=== PATIENT | male | born 1940 | race Caucasian/White ===

== ENCOUNTER 2016-05-30 18:00 | Observation (INO) | payer MEDICARE, OTHER ==
[2016-05-30] VITALS (12 sets, daily range): BP systolic 130–162; BP diastolic 78–107
[~2016-05-30] VITALS: Ht 182.9 cm; Wt 55.5 kg
[~2016-05-30 18:00] MED LIST: AMOX-358 PO; ASP325T; ASP81TEC PO; ASPI-999 PO; CLOP75TA; CLPD75T; EZET10TA5; FAMO20TA5 PO; FERR-57 PO; LEVE500T99 PO; LISI10TA2 PO; LSNP10T PO; MUPI22OI TOP; NAPR-243 PO; PENI500T PO; SIME80TA16 PO; TRM50T PO
--- OUTSIDE RECORDS SUMMARY | 2016-05-30 18:06 | XMS REPORT | Continuity of Care Document ---
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 Phone JAVIER GONZALEZ MD PCP Insurance Providers Payer Name Policy Number Subscriber Name Relationship [employer] [id number] Juan Alcaraz 18 Self / Same As Patient Advance Directives Directive Response Recorded Date/Time Advance Directives No 08/04/15 8:35pm Health Care Power of Energy Audit Advisor No 08/04/15 8:35pm Organ Donor No 08/04/15 8:35pm Resuscitation Status Full Code 08/04/15 8:35pm Chief Complaint and Reason for Visit Chief Complaint Bite-Animal/Human/Insect Reason for Visit Dog bite of right calf Buyxpgwvkf-dcpnjqmrz-pcsxrwb (DPT) vaccination administeredat current visit Need for post exposure prophylaxis for rabies Problems Active Problems Medical Problem Onset Date Status Chest pain Unknown Acute Ptmlvqwxga-qihiklqwq-nlriqaq (DPT) vaccination administeredat current visit Unknown Acute Dog bite of right calf Unknown Acute Neck pain Unknown Acute Need for post exposure prophylaxis for rabies Unknown Acute Tinnitus Unknown Acute Medications Current Home Medications Medication Dose Units Route Directions Days/Qty Instructions Start Date Levetiracetam 500 Mg 500 Mg Oral Daily 11/27/11 Ferrous Sulfate 325 Mg 325 Mg Oral Daily 11/27/11 Lisinopril 10 Mg 5 Mg Oral Daily TAKES 1/2 (10MG) TABLET 06/05/15 Aspirin 81 Mg 81 Mg Oral Daily 90 06/05/15 Simethicone 80 Mg 80 Mg Oral Three Times A Day 30 Days 06/05/15 Famotidine 20 Mg 20 Mg Oral Twice A Day 30 Days 06/05/15 Amoxicillin/Potassium Clav 1 Each 1 Each Oral Twice A Day for Infection 20 08/04/15 Mupirocin 22 Gm 0 Topically Twice A Day 1 08/04/15 Past Home Medications Medication Directions Ordered Status Clopidogrel Bisulfate 75 Mg Tablet, 06/06/06 Discontinued Aspirin 325 Mg Tablet, 06/06/06 Discontinued Ezetimibe 10 Mg Tablet, 06/06/06 Discontinued Aspirin 325 Mg Tab, 07/15/08 Discontinued Clopidogrel Bisulfate 75 Mg Tablet, 07/15/08 Discontinued Lisinopril 10 Mg Tab, 10 Mg Oral Every 12 Hours 11/27/11 Discontinued Aspirin 81 Mg Tabec, 81 Mg Oral Every Other Day 11/28/11 Discontinued Social History Social History Problem Response Recorded Date/Time Alcohol Use Denies Use 08/04/2015 8:35pm Recreational Drug Use No 08/04/2015 8:35pm Recent Foreign Travel No 08/04/2015 8:35pm Recent Infectious Disease Exposure No 08/04/2015 8:35pm Hospitalization with Isolation Denies 08/04/2015 8:35pm Smoking Status Never a Smoker 08/04/2015 8:35pm Do you dip or chew tobacco? No 08/04/2015 8:35pm Query Response Start Date Stop Date Smoking Status Never a Smoker Hospital Discharge Instructions No hospital discharge instructions. Plan of Care Discharge Date 08/04/15 10:05pm Disposition 01 HOME, SELF-CARE Condition at Discharge Stable Instructions/Education Provided DOG BITE Rabies (ED) Diphtheria Tetanus and Pertussis Vaccination (ED) Prescriptions See Medication Section Referrals JAVIER GONZALEZ MD - Primary Care Physician Additional Instructions/Education CLEAN WOUND TWICE A DAY WITH ANTIBACTERIAL SOAP AND WATER, APPLY BACTROBAN ANTIBIOTIC OINTMENT AND FRESH DRESSING TWICE A DAY TYLENOL AND MOTRIN NEEDED FOR PAIN FOLLOW UP WITH YOUR DR ON FRIDAY FOR FURTHER CARE RETURN TO ER IF SYMPTOMS WORSEN RETURN FOR OUTPATIENT RABIES SERIES VACCINATIONS SCHEDULED--SEE ADDITIONAL PAPERS Functional Status No functional status results. Allergies, Adverse Reactions, Alerts Allergen Type Severity Reaction Status Last Updated Codeine Allergy Unknown Active 02/16/09 Immunizations Name Given Type Date of Pneumonia Vaccine 03/31/10 Historical Date of Influenza Vaccine 02/26/15 Historical Tdap 08/04/15 Administered RIG 08/04/15 Administered rabies, intramuscular injection 08/04/15 Administered Vital Signs Acute Vital Signs Vital Response Date/Time Temperature (Fahrenheit) 97.3 degrees F (97.6 - 99.5) 08/04/2015 8:35pm Temperature (Calculated Celsius) 36.87046 degrees C (36.4 - 37.5) 08/04/2015 8:35pm Temperature Source Temporal 08/04/2015 8:35pm Pulse Rate (adult) 73 bpm (60 - 90) 08/04/2015 8:35pm Respiratory Rate 16 bpm (12 - 24) 08/04/2015 8:35pm O2 Sat by Pulse Oximetry 98 % (88 - 100) 08/04/2015 8:35pm Blood Pressure 148/94 mm Hg 08/04/2015 8:35pm Blood Pressure Mean 112 mm Hg 08/04/2015 8:35pm Pain Pain Intensity 5 08/04/2015 8:35pm Height (Feet) 6 feet 08/04/2015 8:35pm Height (Inches) 0.00 inches 08/04/2015 8:35pm Height (Calculated Centimeters) 182.376308 cm 08/04/2015 8:35pm Weight (Pounds) 125 pounds 08/04/2015 8:35pm Weight (Calculated Grams) 04203.346 gm 08/04/2015 8:35pm Weight (Calculated Kilograms) 56.686952 kilograms 08/04/2015 8:35pm Calculated BMI 15.19 08/04/2015 8:35pm Results No known relevant diagnostic tests, laboratory data and/or discharge summary. Procedures No known history of procedures. Encounters Encounter Location Arrival/Admit Date Discharge/Depart Date Attending Provider Departed Emergency Room [facility] 08/04/15 8:05pm 08/03 10:05pm VICTORINA AVERY DO Recent Diagnosis
[2016-05-30] MEDS ORDERED: LEVE500T6 (18:09)
[2016-05-30] MEDS ORDERED: RX-NITROGLYCERIN 0.4 MG TAB BTL 25'S SL ONE (18:15)
[2016-05-30] MEDS ORDERED: ASPIRIN 81 MG CHEW (CHILDREN'S ASA) PO ONE (18:15)
[2016-05-30 18:21] LABS: BASOPHILS % (AUTO) 0 % (0-10); EOSINOPHILS # (AUTO) 0.5 10^3/uL (0.0-0.3); EOSINOPHILS % (AUTO) 7 % (0-10); LYMPHOCYTES % (AUTO) 29 % (12-44); MEAN CORPUSCULAR HEMOGLOBIN 32 PG (25-34); MEAN CORPUSCULAR HGB CONC 34 G/DL (32-36); MEAN CORPUSCULAR VOLUME 94 FL (80-99); MEAN PLATELET VOLUME 9.2 FL (7.4-10.4); MONOCYTES # (AUTO) 0.6 X 10^3 (0.0-1.0); MONOCYTES % (AUTO) 8 % (0-12); NEUTROPHILS # (AUTO) 3.9 X 10^3 (1.8-7.8); NEUTROPHILS % (AUTO) 56 % (42-75); PLATELET COUNT 245 10^3/uL (130-400); RED BLOOD COUNT 3.75 10^6/uL (4.35-5.85); RED CELL DISTRIBUTION WIDTH 13.2 % (10.0-14.5); WHITE BLOOD COUNT 6.9 10^3/uL (4.3-11.0)
[2016-05-30 18:24] LABS: PROTHROMBIN TIME PATIENT 13.3 SEC (12.2-14.7)
[2016-05-30 18:36] LABS: ALANINE AMINOTRANSFERASE 13 U/L (0-55); ANION GAP 11 MMOL/L (5-14); ASPARTATE AMINO TRANSFERASE 16 U/L (5-34); BILIRUBIN,TOTAL 0.3 MG/DL (0.1-1.0); BLOOD UREA NITROGEN 12 MG/DL (7-18); BUN/CREATININE RATIO 12; CALCIUM 9.3 MG/DL (8.5-10.1); CARBON DIOXIDE 23 MMOL/L (21-32); CHLORIDE 106 MMOL/L (98-107); CREATININE SERUM 1.01 MG/DL (0.60-1.30); GFR ESTIMATED > 60; GLUCOSE 94 MG/DL (70-105); POTASSIUM 3.8 MMOL/L (3.6-5.0); SODIUM 140 MMOL/L (135-145); TOTAL PROTEIN 7.1 G/DL (6.4-8.2)
[2016-05-30 18:42] LABS: MYOGLOBIN SERUM 75.5 NG/ML (10.0-92.0)
--- NOTE | 2016-05-30 18:43 | ED Chest Pain ---
General Chief Complaint: Respiratory Problems Stated Complaint: TROUBLE BREATHING Nursing Triage Note: AMB TO ROOM C/O FEELING LIKE HE CAN'T GET ENOUGH AIR IN. Nursing Sepsis Screen: No Definite Risk Source: patient, old records Exam Limitations: no limitations History of Present Illness Time seen by provider: 18:07 Initial Comments This 76-year-old gentleman presents to the emergency room with complaints of dyspnea and "gas" with excessive belching since about noon. He was not clear to nursing staff at triage that he was having chest pressure, but he admits to me that he is having left upper chest pressure or heaviness that started around noon. It feels similar to when he had his heart attack about 10 years ago. He denies any nausea, vomiting, lightheadedness, or cough. Pain does not seem to have any specific alleviating or exacerbating factors. He denies any abdominal pain. Last bowel movement was yesterday and was mildly difficult to produce. Patient had a cardiac catheter in 2007 demonstrating patent stents to the RCA and LAD. He did have 40-50 percent stenosis at that time. A stress test in 2015 was negative and demonstrated a normal ejection fraction. Allergies and Home Medications Allergies Coded Allergies: codeine (Verified Allergy, Unknown, 02/16/09) Home Medications Aspirin 81 Mg Tab.chew #90 81 MG PO DAILY Prescribed by: REBECCA AGARWAL on 06/05/15 1300 Famotidine 20 Mg Tablet 30Days 20 MG PO BID Prescribed by: IRMA BATISTA on 06/05/15 1353 Ferrous Sulfate 325 Mg Tablet 325 MG PO DAILY (Reported) Levetiracetam 500 Mg Tab 500 MG PO DAILY (Reported) Levetiracetam 500 Mg Tablet #30 (Reported) Lisinopril 10 Mg Tablet 5 MG PO DAILY (Reported) TAKES 1/2 (10MG) TABLET Mupirocin 22 Gm Oint...g. #1 0 TOP BID Prescribed by: VICTORINA AVERY on 08/04/152047 Simethicone 80 Mg Tab.chew 30Days 80 MG PO TID Prescribed by: IRMA BATISTA on 06/05/15 1353 Review of Systems Constitutional: no symptoms reported EENTM: No Symptoms Reported Respiratory: See HPI Cardiovascular: See HPI Gastrointestinal: See HPI Genitourinary: No Symptoms Reported Musculoskeletal: no symptoms reported Skin: no symptoms reported Psychiatric/Neurological: No Symptoms Reported Endocrine: No Symptoms Reported Past Hdbaxfw-Yzrgjy-Vtbolq Hx Patient Social History Alcohol Use: Denies Use Recreational Drug Use: No Smoking Status: Never a Smoker Recent Foreign Travel: No Contact w/Someone Who Travel: No Recent Infectious Disease Expo: No Recent Hopitalizations: Yes (2004 STENT PLACEMENT, 2006 CHEST PAIN) Immunizations Up To Date Tetanus Booster (TDap): Unknown Date of Pneumonia Vaccine: Mar 31, 2010 Date of Influenza Vaccine: Feb 26, 2015 Seasonal Allergies Seasonal Allergies: No Surgeries HX Surgeries: Yes (HEART STENTS 2004, EVACUATION BRAIN HEMATOMA 2008) Surgeries: Cardiac, Coronary Stent, Neurological Respiratory Hx Respiratory Disorders: No Cardiovascular Hx Cardiac Disorders: Yes (2 STENTS) Cardiac Disorders: Coronary Artery Disease, Hypertension Neurological Hx Neurological Disorders: Yes (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) Neurological Disorders: Seizure Disorder Reproductive System Hx Reproductive Disorders: No Genitourinary Hx Genitourinary Disorders: No Gastrointestinal Hx Gastrointestinal Disorders: No Musculoskeletal Hx Musculoskeletal Disorders: No Endocrine Hx Endocrine Disorders: No HEENT HX ENT Disorders: Yes Hearing Impairment: Hard of Hearing Cancer Hx Cancer: No Psychosocial Hx Psychiatric Problems: No Integumentary HX Skin/Integumentary Disorder: No Blood Transfusions Hx Blood Disorders: No Family Medical History Family Medial History: Unknown family medical history Physical Exam Vital Signs Vital Sign - Last 12Hours 05/30/16 05/30/16 18:13 18:43 Temp 97.6 Pulse 60 Resp 18 B/P 158/85 Pulse Ox 96 O2 Delivery Room Air Capillary Refill : Less Than 3 Seconds General Appearance: No Apparent Distress WD/WN HEENT: PERRL/EOMI Normal ENT Inspection Neck: Normal Inspection Respiratory: Chest Non Tender Lungs Clear Normal Breath Sounds No Accessory Muscle Use No Respiratory Distress Cardiovascular: Regular Rate, Rhythm No Edema No Murmur Normal Peripheral Pulses Gastrointestinal: Normal Bowel Sounds Non Tender Soft Extremity: Normal Inspection Non Tender No Calf Tenderness No Pedal Edema Other (negative Artemio) Neurologic/Psychiatric: Alert Oriented x3 No Motor/Sensory Deficits 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 Norm as Tested Skin: Normal Color Warm/Dry Progress/Results/Core Measures Results/Orders Lab Results Laboratory Tests Test 05/30/16 18:10 Range/Units Activated Partial Thromboplast Time 27 24-35 SEC Alanine Aminotransferase (ALT/SGPT) 13 0-55 U/L Albumin 4.0 3.2-4.5 G/DL Alkaline Phosphatase 90 40-136 U/L Anion Gap 11 5-14 MMOL/L Aspartate Amino Transf (AST/SGOT) 16 5-34 U/L BUN/Creatinine Ratio 12 Basophils # (Auto) 0.0 0.0-0.1 10^3/uL Basophils (%) (Auto) 0 0-10 % Blood Urea Nitrogen 12 7-18 MG/DL Calcium Level 9.3 8.5-10.1 MG/DL Carbon Dioxide Level 23 21-32 MMOL/L Chloride Level 106 98-107 MMOL/L Creatinine 1.01 0.60-1.30 MG/DL Eosinophils # (Auto) 0.5 H 0.0-0.3 10^3/uL Eosinophils (%) (Auto) 7 0-10 % Estimat Glomerular Filtration Rate > 60 Glucose Level 94 70-105 MG/DL Hematocrit 35 L 40-54 % Hemoglobin 11.9 L 13.3-17.7 G/DL INR Comment 1.0 0.8-1.4 Lymphocytes # (Auto) 2.0 1.0-4.0 X 10^3 Lymphocytes (%) (Auto) 29 12-44 % Magnesium Level 2.0 1.8-2.4 MG/DL Mean Corpuscular Hemoglobin 32 25-34 PG Mean Corpuscular Hemoglobin Concent 34 32-36 G/DL Mean Corpuscular Volume 94 80-99 FL Mean Platelet Volume 9.2 7.4-10.4 FL Monocytes # (Auto) 0.6 0.0-1.0 X 10^3 Monocytes (%) (Auto) 8 0-12 % Myoglobin 75.5 10.0-92.0 NG/ML Neutrophils # (Auto) 3.9 1.8-7.8 X 10^3 Neutrophils (%) (Auto) 56 42-75 % Platelet Count 245 130-400 10^3/uL Potassium Level 3.8 3.6-5.0 MMOL/L Prothrombin Time 13.3 12.2-14.7 SEC Red Blood Count 3.75 L 4.35-5.85 10^6/uL Red Cell Distribution Width 13.2 10.0-14.5 % Sodium Level 140 135-145 MMOL/L Total Bilirubin 0.3 0.1-1.0 MG/DL Total Protein 7.1 6.4-8.2 G/DL Troponin I < 0.30 <0.30 NG/ML White Blood Count 6.9 4.3-11.0 10^3/uL My Orders Orders-ROD CAMPO MD Cbc With Automated Diff (05/30/16 18:15) Magnesium (05/30/16 18:15) Chest 1 View, Ap/Pa Only (05/30/16 18:15) Ekg Tracing (05/30/16 18:15) Cardiac Profile 1 (05/30/16 18:15) Comprehensive Metabolic Panel (05/30/16 18:15) Myoglobin Serum (05/30/16 18:15) Protime With Inr (05/30/16 18:15) Partial Thromboplastin Time (05/30/16 18:15) O2 (05/30/16 18:15) Monitor-Rhythm Ecg Trace Only (05/30/16 18:15) Lipid Panel (05/31/16 06:00) Aspirin Chewable Tablet (Baby Aspirin Ch (05/30/16 18:15) Rx-Nitroglycerin Sl Tabs (Rx-Nitrostat S (05/30/16 18:15) Saline Lock/Iv-Start (05/30/16 18:15) Medications Given in ED Current Medications Medications Dose Ordered Sig/Andrei Route Start Time Stop Time Status Last Admin Dose Admin Aspirin 324 mg ONCE ONCE PO 05/30/16 18:15 05/30/16 18:17 DC 05/30/16 18:24 324 MG Nitroglycerin 0.4 mg UD ONCE SL 05/30/16 18:15 05/30/16 18:17 DC 05/30/16 18:25 0.4 MG Vital Signs/I&O Vital Sign - Last 12Hours 05/30/16 05/30/16 18:13 18:43 Temp 97.6 Pulse 60 59 Resp 18 18 B/P 158/85 130/86 Pulse Ox 96 O2 Delivery Room Air Blood Pressure Mean: 109 Progress Note : Progress Note Patient received aspirin and a dose of nitroglycerin shortly after assessment. Chest pressure was completely relieved after one nitroglycerin and patient was feeling relatively well prior to admission. Workup was unremarkable. ECG Initial ECG Impression Date: May 30, 2016 Initial ECG Impression Time: 18:05 Initial ECG Rate: 62 Initial ECG Rhythm: Normal Sinus Initial ECG Intervals: Normal Initial ECG Impression: Normal Comment normal sinus rhythm with no ST elevation or depression. No abnormal intervals or axis deviation. Diagnostic Imaging Diagonstic Imaging: Xray Plain Films/CT/US/NM/MRI: chest Comments NAME: JUAN ALCARAZ REC#: [id number] PT STATUS: REG ER : 1940 PHYSICIAN: ROD CAMPO MD ADMIT DATE: 05/30/16/ER Draft Date of Exam:05/30/16 CHEST 1 VIEW, AP/PA ONLY Portal AP chest at 6:34 p.m. INDICATION: Difficulty breathing. FINDINGS: Heart size is within normal limits and stable when compared to 10/08/2015. The lungs are generally clear. There is no sign of failure, pneumonia or pleural effusion to suggest an acute abnormality. The mediastinum is not widened. The osseous structures are intact. IMPRESSION: There is no evidence for an acute cardiopulmonary abnormality. Dictated on workstation # [id number] Dict: 05/30/16 1850 Trans: 05/30/16 1912 KB [id number] Interpreted by: CLIFFORD SUTHERLAND MD Departure Communication Time/Spoke to Admitting Phy: 19:[address] Moreno was contacted and agrees with admission for cardiac rule out. Time/Spoke to Consulting Physi: 19:45 Communication/Consulting Dr. Ray was contacted and case was reviewed. He agrees with admission for cardiac rule out based on patient's prior history. He requests calls to him until 07:00, then calls to Dr. Agarwal. He requests NPO status after midnight in preparation for further testing. Impression Impression: Primary Impression: Chest pain Qualified Code: R07.9 - Chest pain, unspecified Additional Impression: Coronary artery disease Qualified Code: I25.10 - Atherosclerotic heart disease of [place] coronary artery without angina pectoris Disposition: ADMITTED INPATIENT Condition: Improved Decision to Admit Reason: Admit from ER (General) Decision to Admit/Date: May 30, 2016 Time/Decision to Admit Time: 18:15 Departure-Patient Inst. Referrals: JAVIER GONZALEZ MD (PCP/Family) Primary Care Physician ROD CAMPO MD May 30, 2016 18:43
--- NOTE | 2016-05-30 19:12 | Diagnostic Imaging Report ---
Portal AP chest at 6:34 p.m. INDICATION: Difficulty breathing. FINDINGS: Heart size is within normal limits and stable when compared to 10/08/2015. The lungs are generally clear. There is no sign of failure, pneumonia or pleural effusion to suggest an acute abnormality. The mediastinum is not widened. The osseous structures are intact. IMPRESSION: There is no evidence for an acute cardiopulmonary abnormality. Dictated by: Dictated on workstation # [id number]
[2016-05-30] MEDS ORDERED: morphine INJ 4 MG/ML 1 ML (VIAL/SYRINGE) IV PRN (21:15)
[2016-05-30] MEDS ORDERED: NITROGLYCERIN SUBLINGUAL 0.4 MG TAB (NITROSTAT) SL PRN (21:15)
[2016-05-30] MEDS ORDERED: ONDANSETRON 4 MG/2 ML (SDV) Z0FRAN IV PRN (21:15)
[2016-05-30] MEDS ORDERED: CATHETER FLUSH 10 ML SYR IV PRN (21:30)
[2016-05-30] MEDS: CATHETER FLUSH 10 ML SYR IV SCH (22:43)
[2016-05-31] VITALS (8 sets, daily range): BP systolic 121–147; BP diastolic 72–81
[2016-05-31 04:36] LABS: CHOLESTEROL 169 MG/DL (< 200); DIRECT LDL 110 MG/DL (1-129); TRIGLYCERIDES 106 MG/DL (<150); VLDL CHOLESTEROL 21 MG/DL (5-40)
[2016-05-31] MEDS: CATHETER FLUSH 10 ML SYR IV SCH (05:37)
[2016-05-31] MEDS ORDERED: FAMO20TA3 PO (08:31)
[2016-05-31] MEDS ORDERED: ASPI-999 PO (08:35)
[2016-05-31] MEDS ORDERED: lisINopril 5 MG (PRINIVIL) TABLET PO SCH (09:00)
[2016-05-31] MEDS ORDERED: FAMOTIDINE 20 MG (PEPCID) TABLET PO SCH (09:00)
[2016-05-31] MEDS ORDERED: ASPIRIN E.C. 325 MG (ECOTRIN) TABLET PO SCH (09:00)
[2016-05-31] MEDS ORDERED: LEVETIRACETAM 500 MG (KEPPRA) TAB PO SCH (09:00)
--- NOTE | 2016-05-31 09:00 | Consultation-Cardiology ---
HPI-Cardiology Cardiology Consultation: Date of Consultation 05/31/16 Date of Admission 05-30-16 Attending Physician Xena Moreno DO Admitting Physician Jose Antonio Morrison MD Consulting Physician Frederick Agarwal MD HPI: Chief Complaint: Dyspepsia Mr. Alcaraz is a 76 year old male admitted to ICU2 from the ED. He reports chronic dyspepsia for which he takes Zantac BID at home. He states he has been having increasing indigestion and belching along with abdominal bloating which became worse last night. He states he was belching so frequently last night he was having a hard time catching his breath. He states he has been taking antacids at home, but feels they have only provided minimal relief. He states he has a chronic minimal appetite which is nothing new. He states he at times he feels food gets stuck in his esophagus. No c/o CP, palpitations, dyspnea, syncope or near syncope. No c/o LE edema. Review of Systems-Cardiology Review of Systems Constitutional: As described under HPI Eyes: No blurred vision, No drainage, No pain, No vision change Ears/Nose/Throat: No ear discharge, No ear pain, No nasal drainage, No ulcerations Respiratory: As described under HPI Cardiovascular: As described under HPI Gastrointestinal: As described under HPI abdomen distendedNo constipation, No diarrhea, No nausea, No vomiting, No stool coloration changes Genitourinary: No dysuria, No discharge, No frequency, No hematuria, No urgency Skin: No rash, No skin related problems, No ulcerations Psychiatric/Neurological: No anxiety, No depression, No focal weakness, No seizure, No syncope Hematologic: No bleeding abnormalities BZH-Ldkicf-Luziju Hx Patient Social History Alcohol Use: Denies Use Recreational Drug Use: No Smoking Status: Never a Smoker Recent Foreign Travel: No Recent Infectious Disease Expo: No Hospitalization with Isolation: Denies Physical Abuse Screen: No Sexual Abuse: No Immunizations Up To Date Tetanus Booster (TDap): Unknown Date of Pneumonia Vaccine: Dec 30, 2015 Date of Influenza Vaccine: Dec 30, 2015 Past Medical History PMH As described under Assessment. Family Medical History Family Medical History: Denies fam h/o early CAD Family History: Relation not specified for: Unknown family medical history Allergies and Home Medications Allergies Coded Allergies: codeine (Verified Allergy, Unknown, 02/16/09) Home Medications Aspirin 81 Mg Tab.chew 81 MG PO DAILY (Reported) Famotidine 20 Mg Tablet 20 MG PO BID (Reported) Ferrous Sulfate 325 Mg Tablet 325 MG PO DAILY (Reported) Levetiracetam 500 Mg Tab 500 MG PO DAILY (Reported) Lisinopril 10 Mg Tablet 5 MG PO DAILY (Reported) TAKES 1/2 (10MG) TABLET Physical Exam-Cardiology Physical Exam Vital Signs/I&O Vital Sign - Last 12Hours 05/30/16 05/30/16 05/30/16 05/30/16 21:07 21:11 21:15 21:15 Temp 96.6 Pulse 53 60 59 Resp 16 B/P 159/90 154/92 154/92 Pulse Ox 99 98 98 O2 Delivery Room Air Room Air Room Air 05/30/16 05/30/16 05/30/16 05/30/16 21:30 21:30 21:45 21:45 Pulse 68 68 62 62 B/P 151/107 162/84 162/84 Pulse Ox 95 95 96 96 O2 Delivery Room Air Room Air Room Air Room Air 05/30/16 05/30/16 05/30/16 05/30/16 22:00 22:00 22:15 22:15 Pulse 59 59 79 79 B/P 155/78 155/78 149/78 149/78 Pulse Ox 98 98 97 97 O2 Delivery Room Air Room Air Room Air Room Air 05/30/16 05/30/16 05/30/16 05/30/16 22:30 22:30 22:45 22:45 Pulse 67 67 56 56 B/P 130/94 130/94 140/78 140/78 Pulse Ox 96 96 96 96 O2 Delivery Room Air Room Air Room Air Room Air 05/30/16 05/30/16 05/30/16 05/30/16 23:00 23:00 23:15 23:30 Pulse 65 65 52 53 B/P 147/82 147/82 153/78 142/78 Pulse Ox 96 96 95 97 O2 Delivery Room Air Room Air Room Air Room Air 05/30/16 05/31/16 05/31/16 05/31/16 23:30 00:00 00:00 01:00 Temp 96.5 Pulse 54 53 59 Resp 16 B/P 142/78 142/78 Pulse Ox 97 97 96 O2 Delivery Room Air Room Air 3/305/31/16 05/31/16 05/31/16 01:00 02:00 03:00 04:00 Temp 98.2 Pulse 60 60 58 59 B/P 121/78 147/80 143/81 138/72 Pulse Ox 95 95 95 97 O2 Delivery Room Air Room Air Room Air Room Air 05/31/16 05/31/16 05/31/16 04:00 07:00 08:00 Temp 96.7 Pulse 66 71 Resp 20 B/P 132/78 Pulse Ox 96 95 O2 Delivery Room Air Intake and Output 05/31/16 00:00 Intake Total 220 ml Output Total 600 ml Balance -380 ml Capillary Refill : Less Than 3 Seconds Constitutional: appears stated ageNo apparent distress, well-developed well- nourished HEENT: PERRLNo discharge, hearing is well preservedNo oral hygience is good ( poor dention with multiple missing and broken teeth), No ulceration, No xanthelasmas are seen Neck: No carotid bruit, carotid pulses are 2 + bilaterally Respiratory: No accessory muscle use, No respiratory distress, chest expansion is symmetric chest is bilaterally symmetric lungs clear to percussion lungs clear to auscultation Cardiovascular: regular rate-rhythmNo JVD, S1 and S2 Gastrointestinal: soft roundNo distended, No tenderness, No spleenomegaly Rectal: deferred Extremities: No clubbing, No cyanosis, No significant edema Neurologic/Psychiatric: alert oriented x 3 power is 5/5 both on sides Skin: No rash, No ulcerations Data Review Labs Laboratory Tests 05/30/16 18:10: Activated Partial Thromboplast Time 27, Alanine Aminotransferase (ALT/SGPT) 13, Albumin 4.0, Alkaline Phosphatase 90, Anion Gap 11, Aspartate Amino Transf (AST/ SGOT) 16, BUN/Creatinine Ratio 12, Basophils # (Auto) 0.0, Basophils (%) (Auto) 0, Blood Urea Nitrogen 12, Calcium Level 9.3, Carbon Dioxide Level 23, Chloride Level 106, Creatinine 1.01, Eosinophils # (Auto) 0.5H, Eosinophils (%) (Auto) 7 , Estimat Glomerular Filtration Rate > 60, Glucose Level 94, Hematocrit 35L, Hemoglobin 11.9L, INR Comment 1.0, Lymphocytes # (Auto) 2.0, Lymphocytes (%) ( Auto) 29, Magnesium Level 2.0, Mean Corpuscular Hemoglobin 32, Mean Corpuscular Hemoglobin Concent 34, Mean Corpuscular Volume 94, Mean Platelet Volume 9.2, Monocytes # (Auto) 0.6, Monocytes (%) (Auto) 8, Myoglobin 75.5, Neutrophils # ( Auto) 3.9, Neutrophils (%) (Auto) 56, Platelet Count 245, Potassium Level 3.8, Prothrombin Time 13.3, Red Blood Count 3.75L, Red Cell Distribution Width 13.2, Sodium Level 140, Total Bilirubin 0.3, Total Protein 7.1, Troponin I < 0.30, White Blood Count 6.9 05/31/16 01:35: Troponin I < 0.30 05/31/16 03:35: Cholesterol Level 169, HDL Cholesterol 39L, LDL Cholesterol Direct 110, Triglycerides Level 106, VLDL Cholesterol 21 Laboratory Tests 05/30/16 18:10 Radiology NAME: JUAN ALCARAZ [facility] REC#: [id number] PT STATUS: REG ER : 1940 PHYSICIAN: ROD CAMPO MD ADMIT DATE: 05/30/16/ER Signed Date of Exam: 05/30/16 CHEST 1 VIEW, AP/PA ONLY Portal AP chest at 6:34 p.m. INDICATION: Difficulty breathing. FINDINGS: Heart size is within normal limits and stable when compared to 10/08/2015. The lungs are generally clear. There is no sign of failure, pneumonia or pleural effusion to suggest an acute abnormality. The mediastinum is not widened. The osseous structures are intact. IMPRESSION: There is no evidence for an acute cardiopulmonary abnormality. Dictated by: Dictated on workstation # [id number] Dict: 05/30/16 1850 Trans: 05/30/16 1924 KB [id number] Interpreted by: CLIFFORD SUTHERLAND MD Electronically signed by:CLIFFORD SUTHERLAND MD 05/30/16 1922 ECG Impression ECG Initial ECG Rhythm: Normal Sinus A/P-Cardiology Assessment/Admission Diagnosis Epigastric discomfort with associated dyspepsia Chronic dyspepsia with recent worsening of symptoms Coronary artery disease with a history of drug-eluting stenting of the mid right coronary and the mid left anterior descending in 2004. Last cardiac catheterization was in November 2007 and it showed widely patent stents in these arteries. 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 Intolerance to combination of aspirin and Plavix on account of intracranial bleed when on these medications. He has been able to tolerate a low dose of aspirin without complications. Intolerance to statins which result in liver enzyme elevation. Mild chronic alkaline phosphatase elevation of undetermined etiology, being followed by Dr. Morrison. Mild chronic anemia, being followed by Dr. Morrison. Mild bilateral carotid arterial disease without evidence of hemodynamically significant stenosis per carotid ultrasound on 01/27/2015. Normal global systolic function with an ejection fraction of approximately 60%, mild mitral and tricuspid regurgitation, pulmonary artery systolic pressure is estimated to be approximately 25 mmHg per echocardiogram from 06/05/15. Discussion and Recomendations Dyspepsia with epigastric discomfort. No evidence of ACS based on serial troponin and EKG. Symptoms likely non-cardiac. He has chronic dyspepsia for which he takes Pepcid. We have discussed risk factor modification. We have advised further work up with medical services for other possible causes. He verbalizes understanding. We will change Pepcid to PPI. We will give Mylanta. Further recommendations will be based on his hospital course. We would like to thank Dr. Moreno for this consult. This consult is being scribed by Sav Varghese APRN on behalf of Dr. Agarwal after discussion regarding plan of care. Clinical Quality Measures DVT/VTE Risk/Contraindication: Risk Factor Score Per Nursin RFS Level Per Nursing on Admit: 2=Moderate YOUNG VARGHESE May 31, 2016 09:00
[2016-05-31] MEDS ORDERED: ANTACID SUSP 30 ML UDC (MYLANTA) PO ONE (09:15)
--- NOTE | 2016-05-31 10:24 | Short Stay Summary-Hospitalist ---
HPI History of Present Illness: HPI/Chief Complaint CC: Chest pain and SOB HPI: This is a 76[address]WM pt of Dr. Gonzalez'juvenal that presented with chest pain and SOB. Dr. Agarwal is pt's Manager Disaster Recovery. Pt has stabilized, and will likely DC with an appointment for out-patient scope to explore SOB and indigestion complications. associate programmer analyst: RN states that pt had a stress test recently, and pt is stable for DC with an out-patient scope due to indigestion. Patient Interview: Pt states that PCP is Dr. Gonzalez. Pt states that there are plans for a scope. Pt does not wear O2 at home. Pt does not smoke or drink excessive ETOH. Pt lives with at home, and is normally active. Pt worked at [email or web address] for the past 11 years. Physical exam stable. Pt states that he is SOB. Scribed by Ten Palmer under the direct supervision of Dr. White. Source: patient Exam Limitations: no limitations Date Seen 05/31/16 Attending Physician Xena White DO PCP Javier Gonzalez MD Referring Physician Date of Admission May 30, 2016 at 20:19 Home Medications & Allergies Home Medications Reviewed patient Home Medication Reconciliation Form Allergies Coded Allergies: codeine (Verified Allergy, Unknown, 02/16/09) Past Lxkvbsd-Vlcnew-Joitsv Hx Patient Social History Marrital Status: Employed/Student: retired ([employer] for 11 years most recent job) Alcohol Use: Denies Use Recreational Drug Use: No Smoking Status: Never a Smoker Physical Abuse Screen: No Sexual Abuse: No Recent Foreign Travel: No Contact w/other who traveled: No Recent Hopitalizations: Yes (2004 STENT PLACEMENT, 2006 CHEST PAIN) Recent Infectious Disease Expo: No Immunizations Up To Date Tetanus Booster (TDap): Unknown Date of Pneumonia Vaccine: Dec 30, 2015 Date of Influenza Vaccine: Dec 30, 2015 Seasonal Allergies Seasonal Allergies: No Surgeries HX Surgeries: Yes (HEART STENTS 2004, EVACUATION BRAIN HEMATOMA 2008) Surgeries: Cardiac, Coronary Stent, Neurological Respiratory Hx Respiratory Disorders: No Cardiovascular Hx Cardiovascular Disorders: Yes (2 STENTS) Cardiac Disorders: Coronary Artery Disease, Hypertension Neurological Hx Neurological Disorders: Yes (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) Neurological Disorders: Seizure Disorder Reproductive System Hx Reproductive Disorders: No Genitourinary Hx Genitourinary Disorders: No Gastrointestinal Hx Gastrointestinal Disorders: No Musculoskeletal Hx Musculoskeletal Disorders: No Endocrine Hx Endocrine Disorders: No HEENT HX ENT Disorders: Yes Loss of Vision: Denies Hearing Impairment: Hard of Hearing Cancer Hx Cancer: No Psychosocial Hx Psychiatric Problems: No Integumentary HX Skin/Integumentary Disorder: No Blood Transfusions Hx Blood Disorders: No Family Medical History Family Hx: Unknown family medical history Review of Systems Constitutional: see HPI EENTM: no symptoms reported Respiratory: short of breath Cardiovascular: chest pain Gastrointestinal: heartburn Genitourinary: no symptoms reported Musculoskeletal: no symptoms reported Skin: no symptoms reported Psychiatric/Neurological: No Symptoms Reported All Other Systems Reviewed Negative Unless Noted: Yes Physical Exam Physical Exam Vital Signs Vital Sign - Last 12Hours 05/30/16 05/30/16 18:13 18:43 Temp 97.6 Pulse 60 Resp 18 B/P 158/85 Pulse Ox 96 O2 Delivery Room Air Capillary Refill : Less Than 3 Seconds General Appearance: No Apparent Distress WD/WN Chronically ill Thin Eyes: Bilateral Eye Normal Inspection, Bilateral Eye PERRL HEENT: PERRL/EOMI Normal ENT Inspection Pharynx Normal Neck: Full Range of Motion Normal Inspection Non Tender Supple Carotid Bruit Respiratory: Chest Non Tender Lungs Clear Normal Breath Sounds No Accessory Muscle Use No Respiratory Distress Cardiovascular: Regular Rate, Rhythm No Edema No Gallop No JVD No Murmur Normal Peripheral Pulses Gastrointestinal: Normal Bowel Sounds No Organomegaly No Pulsatile Mass Non Tender Soft Back: Normal Inspection No CVA Tenderness No Vertebral Tenderness Extremity: Normal Capillary Refill Normal Inspection Normal Range of Motion Non Tender No Calf Tenderness No Pedal Edema Neurologic/Psychiatric: Alert Oriented x3 No Motor/Sensory Deficits Normal Mood/Affect Skin: Normal Color Warm/Dry Lymphatic: No Adenopathy Results Results/Procedures Lab Laboratory Tests 05/30/16 18:10 Short Stay Diagnosis Discharge Diagnosis-Short Stay Admission Diagnosis Assessment: Chest pain SOB Indigestion Final Discharge Diagnosis Assessment: Chest pain with history of 2 stents placed CAD sees Dr. Jewel PRATHER Conclusion Plan Plan: DC with out-patient scope with Dr. Fisher and I spoke to him and he accepts consult Copy Copies To 1: JAVIER GONZALEZ MD Clinical Quality Measures DVT/VTE Risk/Contraindication: Risk Factor Score Per Nursin RFS Level Per Nursing on Admit: 2=Moderate XENA WHITE DO May 31, 2016 10:24
--- NOTE | 2016-05-31 10:30 | Discharge Instructions ---
Discharge Instructions Discharge Medications New, Converted or Re-Newed RX: Other (no new meds) Continued Medications: Aspirin (Aspirin) 81 Mg Tab.chew 81 MG PO DAILY TAB Famotidine (Acid Nurse Outreach Case Manager (FAMOTIDINE)) 20 Mg Tablet 20 MG PO BID TAB Ferrous Sulfate (Ferrous Sulfate) 325 Mg Tablet 325 MG PO DAILY TAB Levetiracetam (Keppra Tab) 500 Mg Tab 500 MG PO DAILY TAB Lisinopril (Lisinopril) 10 Mg Tablet 5 MG PO DAILY TAKES 1/2 (10MG) TABLET TAB Patient Instructions Goal/Follow Up Appt: Dr. Agarwal as scheduled Dr. Fisher for EGD to pursue gastritis versus reflux Activity & Diet Discharge Diet: Cardiac Diet Activity as Tolerated: Yes JORDAN WHITE DO May 31, 2016 10:30
[2016-05-31] MEDS ORDERED: ANTACID SUSP 30 ML UDC (MYLANTA) PO NR (12:51)
== END 2016-05-31 13:00 | disposition home or self-care (01) ==
LOC: EDUNIT# 18:00 → ER 18:02 → UNDOADMOB 20:19 → ICU 20:19
PROVIDERS: ADMIT Internal Medicine; ATTEND Internal Medicine
DX: R07.9 Chest pain, unspecified (principal); I25.10 Atherosclerotic heart disease of native coronary artery without angina pectoris; K21.9 Gastro-esophageal reflux disease without esophagitis; Z95.5 Presence of coronary angioplasty implant and graft
CPT/HCPCS: 36415; 71010; 80053; 80061; 83735; 83874; 84484; 85025; 85610; 85730; 93005; 93041; 99211; G0378

== ENCOUNTER → 2016-06-03 | Day surgery (SDC) | payer MEDICARE, OTHER ==
[~2016-06-03] VITALS: Ht 182.9 cm; Wt 55.5 kg
[~2016-06-03] MED LIST changes: +FAMO20TA3 PO; +FLUMAZENIL (ROMAZICON) 0.1 MG/ML 5 ML VIAL INJ PRN; +HURRICAINE EXT TUBE (BENZOCAINE) ONE; +HURRICAINE EXT TUBE (BENZOCAINE) XX PRN; +LEVE500T6; +MIDAZOLAM 2 MG/2 ML (VERSED) VIAL ONE; +NALOXONE 0.4 MG/ML 1 ML (NARCAN) VIAL IVP PRN; +NS IV 500 ML 500 ML IV PRN; +NS IV 500 ML 500 ML ONE; +fentaNYL INJECTION 100 MCG/2 ML AMP ONE
--- OUTSIDE RECORDS SUMMARY | 2016-06-03 10:14 | XMS REPORT | Continuity of Care Document ---
Author Author [facility] Organization [facility] Address Unknown Phone Unavailable Care Team Providers Care Pharmacy Customer Care Specialist Name Role Phone JAVIER GONZALEZ MD PCP Insurance Providers Payer Name Policy Number Subscriber Name Relationship [employer] [id number] Juan Alcaraz 20 Self / Same As Patient Advance Directives Directive Response Recorded Date/Time Advance Directives No 08/04/15 8:35pm Health Care Power of Oil Burner Installer No 08/04/15 8:35pm Organ Donor No 08/04/15 8:35pm Resuscitation Status Full Code 08/04/15 8:35pm Chief Complaint and Reason for Visit Chief Complaint Bite-Animal/Human/Insect Reason for Visit Dog bite of right calf Ciapiizvek-pmctlpnxo-aezsyio (DPT) vaccination administeredat current visit Need for post exposure prophylaxis for rabies Problems Active Problems Medical Problem Onset Date Status Chest pain Unknown Acute Uumybcgwjo-kvrsztwra-uovkbpa (DPT) vaccination administeredat current visit Unknown Acute [...] - 99.5) 08/04/2015 8:35pm Temperature (Calculated Celsius) 36.22628 degrees C (36.4 - 37.5) 08/04/2015 8:35pm [...] 0.00 inches 08/04/2015 8:35pm Height (Calculated Centimeters) 182.991762 cm 08/04/2015 8:35pm Weight (Pounds) 125 pounds 08/04/2015 8:35pm Weight (Calculated Grams) 56044.346 gm 08/04/2015 8:35pm Weight (Calculated Kilograms) 56.435983 kilograms 08/04/2015 8:35pm Calculated BMI 15.19 08/04/2015 8:35pm Results No known relevant diagnostic tests, laboratory data and/or discharge summary. Procedures No known history of procedures. Encounters Encounter Location Arrival/Admit Date Discharge/Depart Date Attending Provider Departed Emergency Room [facility] 08/04/15 8:05pm 08/03 10:05pm VICTORINA AVERY DO Recent Diagnosis
[2016-06-03 10:15] VITALS: BP 135/82
--- OUTSIDE RECORDS SUMMARY | 2016-06-03 10:15 | XMS REPORT | Continuity of Care Document ---
Author Author [facility] Organization [facility] Address Unknown Phone Unavailable Care Team Providers Care Builder Operator Name Role Phone JAVIER GONZALEZ MD PCP Insurance Providers Payer Name Policy Number Subscriber Name Relationship [employer]ps Medicare [id number] Juan Alcaraz 18 Self / Same As Patient Advance Directives Directive Response Recorded Date/Time Advance Directives No 08/04/15 8:35pm Health Care Power of Wool Hat Finisher No 08/04/15 8:35pm Organ Donor No 08/04/15 8:35pm Resuscitation Status Full Code 08/04/15 8:35pm Chief Complaint and Reason for Visit Chief Complaint Bite-Animal/Human/Insect Reason for Visit Dog bite of right calf Vnznqbkvsv-lffsggzxj-xoqvbsb (DPT) vaccination administeredat current visit Need for post exposure prophylaxis for rabies Problems Active Problems Medical Problem Onset Date Status Chest pain Unknown Acute Ajsgzmtgzt-fzhyorblb-pnfpmcs (DPT) vaccination administeredat current visit Unknown Acute [...] - 99.5) 08/04/2015 8:35pm Temperature (Calculated Celsius) 36.08649 degrees C (36.4 - 37.5) 08/04/2015 8:35pm [...] 0.00 inches 08/04/2015 8:35pm Height (Calculated Centimeters) 182.212183 cm 08/04/2015 8:35pm Weight (Pounds) 125 pounds 08/04/2015 8:35pm Weight (Calculated Grams) 52945.346 gm 08/04/2015 8:35pm Weight (Calculated Kilograms) 56.912333 kilograms 08/04/2015 8:35pm Calculated BMI 15.19 08/04/2015 8:35pm Results No known relevant diagnostic tests, laboratory data and/or discharge summary. Procedures No known history of procedures. Encounters Encounter Location Arrival/Admit Date Discharge/Depart Date Attending Provider Departed Emergency Room [facility] 08/04/15 8:05pm 08/03 10:05pm VICTORINA AVERY DO Recent Diagnosis
--- NOTE | 2016-06-03 11:08 | Pre-Op Note & Conscious Sedat ---
Pre-Operative Progress Note H&P Reviewed The H&P was reviewed, patient examined and no changes noted. Date H&P Reviewed: Jun 03, 2016 Time H&P Reviewed: 11:07 Pre-Op Diagnosis: epigastric pain Conscious Sedation Pre-Proced ASA Class: 2 Airway Mallampati Classification: ([place] appropriate class) I. II. III, IV Lungs Heart ASA score ASA 1: a normal healthy patient ASA 2: a patient with a mild systemic disease (mid diabetes, controlled hypertension, obesity ASA 3: a patient with a severe systemic disease that limits activity (angina , COPD, prior Myocardial infarction) ASA 4: a patient with an incapacitating disease that is a constant threat to life (CHF, renal failure) ASA 5: a moribund patient not expected to survive 24 hrs. (ruptured aneurysm) ASA 6: a declared brain patient whose organs are being harvested. For emergent operations, add the letter E after the classification Grade 2 Sedation Plan: Discussed options with patient/fam Note The patient is an appropriate candidate to undergo the planned procedure, sedation, and anesthesia. The patient immediately re-assessed prior to indication. LISETH LESLIE MD Jun 03, 2016 11:08 am
[2016-06-03] MEDS: fentaNYL INJECTION 100 MCG/2 ML AMP IVP PRN ×2 (11:49→11:51)
[2016-06-03] MEDS: MIDAZOLAM 2 MG/2 ML (VERSED) VIAL IVP PRN ×2 (11:50→11:53)
--- NOTE | 2016-06-03 12:08 | Progress Note-Post Operative ---
Post-Operative Progess Note Pre-Operative Diagnosis epigastric pain Post-Operative Diagnosis tortuous esophagus with a distal peptic stricture. Distal gastritis Post-Op Procedure Note Date of Procedure: Jun 03, 2016 Name of Procedure: EGD with antral biopsy Balloon dilatation of esophageal stricture Anesthesia Type sedation Specimen(s) collected antral mucosa LISETH LESLIE MD Jun 03, 2016 12:08 pm
--- NOTE | 2016-06-03 12:09 | Discharge Inst-Simple/Standard ---
Discharge Inst-Standard Discharge Medications New, Converted or Re-Newed RX: Other Patient Instructions/Follow Up Plan of Care/Instructions/FU: follow-up with his primary physician Activity as Tolerated: Yes Discharge Diet: Soft Diet LISETH LESLIE MD Jun 03, 2016 12:09 pm
[2016-06-03 12:40] VITALS: BP 124/76
--- NOTE | 2016-06-03 12:44 | OPERATIVE REPORT ---
PROCEDURE PHYSICIAN: LISETH LESLIE DATE OF PROCEDURE: 06/03/2016 PROCEDURE: 1. Upper GI endoscopy with antral biopsy. 2. Balloon dilatation of esophageal stricture. SURGEON: Dr. Leslie. INDICATION FOR THE PROCEDURE: This gentleman came in for an upper endoscopy to evaluate ongoing epigastric pain. An informed consent was obtained after reviewing the procedure in detail. DESCRIPTION OF PROCEDURE: He was placed in left lateral decubitus position and his vital signs were monitored. Conscious sedation was achieved using Versed and fentanyl. The flexible gastroscope was then introduced into the esophagus, past the stomach, into the proximal duodenum. FINDINGS: ESOPHAGUS: Quite tortuous with a smooth, concentric stricture at the distal end. It was dilated to 20 mm with a balloon. STOMACH: Mild distal gastritis. An antral biopsy was obtained for Helicobacter status. DUODENUM: Normal. He tolerated the procedure well and was taken back to the nursing area in a stable condition. IMPRESSION: 1. Epigastric pain. 2. Distal esophageal stricture encountered. 3. Balloon dilatation completed. Job ID: [id number] Dictated Date: 06/03/2016 12:08:10 Crm System Administrator Date: 06/03/2016 12:42:07 / salvador PULIDO
[2016-06-03 13:10] VITALS: BP 121/79
[2016-06-03 13:22] VITALS: BP 121/79
== END | disposition home or self-care (01) ==
LOC: ENDO 10:11
PROVIDERS: ATTEND Surgery
DX: K22.2 Esophageal obstruction (principal); K29.70 Gastritis, unspecified, without bleeding
CPT/HCPCS: 88305; 88342

== ENCOUNTER → 2017-03-03 | Outpatient (CLI) | payer MEDICARE ==
[~2017-03-03] MED LIST changes: -FLUMAZENIL (ROMAZICON) 0.1 MG/ML 5 ML VIAL INJ PRN; -HURRICAINE EXT TUBE (BENZOCAINE) ONE; -HURRICAINE EXT TUBE (BENZOCAINE) XX PRN; -MIDAZOLAM 2 MG/2 ML (VERSED) VIAL ONE; -NALOXONE 0.4 MG/ML 1 ML (NARCAN) VIAL IVP PRN; -NS IV 500 ML 500 ML IV PRN; -NS IV 500 ML 500 ML ONE; -fentaNYL INJECTION 100 MCG/2 ML AMP ONE
[2017-03-03 10:01] LABS: ANION GAP 6 MMOL/L (5-14); BLOOD UREA NITROGEN 8 MG/DL (7-18); BUN/CREATININE RATIO 9; CALCIUM 9.1 MG/DL (8.5-10.1); CARBON DIOXIDE 31 MMOL/L (21-32); CHLORIDE 107 MMOL/L (98-107); CREATININE SERUM 0.87 MG/DL (0.60-1.30); GFR ESTIMATED > 60; GLUCOSE 100 MG/DL (70-105); POTASSIUM 4.2 MMOL/L (3.6-5.0); SODIUM 144 MMOL/L (135-145)
[2017-03-03 10:02] LABS: ALANINE AMINOTRANSFERASE 12 U/L (0-55); ALBUMIN 3.9 GM/DL (3.2-4.5); ASPARTATE AMINO TRANSFERASE 12 U/L (5-34); BILIRUBIN,TOTAL 0.5 MG/DL (0.1-1.0); CHOLESTEROL 166 MG/DL (< 200); DIRECT LDL 101 MG/DL (1-129); TOTAL PROTEIN 7.5 GM/DL (6.4-8.2); TRIGLYCERIDES 74 MG/DL (<150); VLDL CHOLESTEROL 15 MG/DL (5-40)
== END ==
LOC: LAB 09:27
PROVIDERS: ATTEND Nurse Practitioner Family
DX: I70.0 Atherosclerosis of aorta (principal); I25.10 Atherosclerotic heart disease of native coronary artery without angina pectoris; I65.23 Occlusion and stenosis of bilateral carotid arteries; Z78.9 Other specified health status
CPT/HCPCS: 36415; 80053; 80061

== ENCOUNTER → 2017-03-06 | Outpatient (CLI) | payer MEDICARE ==
[2017-03-06 10:10] LABS: MEAN PLATELET VOLUME 8.6 FL (7.4-10.4); RED BLOOD COUNT 3.6 10^6/uL (4.35-5.85); RED CELL DISTRIBUTION WIDTH 12.9 % (10.0-14.5); WHITE BLOOD COUNT 5.8 10^3/uL (4.3-11.0)
== END ==
LOC: LAB 09:56
PROVIDERS: ATTEND Internal Medicine
DX: I10 Essential (primary) hypertension (principal); K21.0 Gastro-esophageal reflux disease with esophagitis
CPT/HCPCS: 36415; 84443; 85027

== ENCOUNTER 2017-03-12 13:16 | Outpatient (RCR) | payer MEDICARE | END 2017-06-10 | disposition home or self-care (01) | LOC: LAB 13:16 | PROVIDERS: ATTEND Internal Medicine | DX: D64.9 Anemia, unspecified (principal) | CPT/HCPCS: 82274 ==

== ENCOUNTER 2017-07-31 10:14 | Observation (INO) | payer MEDICARE ==
[~2017-07-31] VITALS: Ht 182.9 cm; Wt 49.6 kg
[2017-07-31] MEDS ORDERED: LACTATED RINGERS 1,000 ML IV ONE (10:29)
[2017-07-31] MEDS ORDERED: raNItidine 50 MG/2 ML INJ (ZANTAC) IM/IV ONE (10:30)
[2017-07-31] MEDS ORDERED: ONDANSETRON 4 MG/2 ML (SDV) Z0FRAN IVP ONE (10:30)
[2017-07-31 10:41] LABS: BASOPHILS % (AUTO) 0 % (0-10); EOSINOPHILS % (AUTO) 1 % (0-10); HEMATOCRIT 40 % (40-54); LYMPHOCYTES # (AUTO) 1.2 X 10^3 (1.0-4.0); LYMPHOCYTES % (AUTO) 21 % (12-44); MEAN CORPUSCULAR HEMOGLOBIN 32 PG (25-34); MEAN CORPUSCULAR HGB CONC 33 G/DL (32-36); MEAN CORPUSCULAR VOLUME 96 FL (80-99); MEAN PLATELET VOLUME 9.4 FL (7.4-10.4); MONOCYTES # (AUTO) 0.5 X 10^3 (0.0-1.0); MONOCYTES % (AUTO) 9 % (0-12); NEUTROPHILS % (AUTO) 69 % (42-75); PLATELET COUNT 234 10^3/uL (130-400); RED BLOOD COUNT 4.12 10^6/uL (4.35-5.85); RED CELL DISTRIBUTION WIDTH 15.3 % (10.0-14.5); WHITE BLOOD COUNT 5.8 10^3/uL (4.3-11.0)
--- OUTSIDE RECORDS SUMMARY | 2017-07-31 10:42 | XMS REPORT ---
Author NICOLE Keller Organization [employer] Address Unknown Phone Unavailable Care Team Providers Care Machine Ironer Name Role Phone NICOLE ISAAC CP Unavailable Allergies No Known Allergies Problems Problem Type Condition Code Onset Dates Condition Status Assessment Encounter for immunization Z23 Active Medications No Known Medications Procedures Procedure Coding System Code Date SINGLE IMMUNIZATION ADMIN CPT-4 13648 Mar 17, 2015 ADMN FLU VAC NO FEE SCHED SAME DAY CPT-4 G0008 Mar 17, 2015 FLUARIX QUAD (3 & UP)-GSK-2014 CPT-4 00180 Mar 17, 2015 Results No Known Results Immunizations Vaccine Administration Date FLUARIX QUAD (3 & UP)-GSK-2014Mar 17, 2015 Summary Purpose [employer] Submission
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
[2017-07-31 10:55] LABS: INR 1.1 (0.8-1.4); PROTHROMBIN TIME PATIENT 14.6 SEC (12.2-14.7)
--- NOTE | 2017-07-31 11:01 | Diagnostic Imaging Report ---
INDICATION: Chest pain. Time of exam: 10:38 AM Correlation is made with prior study of 05/30/2016. The heart size is stable. The lungs are clear. No infiltrates are detected. No effusion or pneumothorax is seen. IMPRESSION: No acute cardiopulmonary process is detected. Dictated by: Dictated on workstation # [id number]
[2017-07-31 11:02] LABS: ALANINE AMINOTRANSFERASE 38 U/L (0-55); ALBUMIN 3.7 GM/DL (3.2-4.5); ALKALINE PHOSPHATASE 106 U/L (40-136); BILIRUBIN,TOTAL 0.5 MG/DL (0.1-1.0); BUN/CREATININE RATIO 9; CALCIUM 9.2 MG/DL (8.5-10.1); CARBON DIOXIDE 27 MMOL/L (21-32); CHLORIDE 107 MMOL/L (98-107); GFR ESTIMATED > 60; GLUCOSE 101 MG/DL (70-105); MAGNESIUM 2.3 MG/DL (1.8-2.4); POTASSIUM 3.9 MMOL/L (3.6-5.0); SODIUM 143 MMOL/L (135-145); TOTAL PROTEIN 7.5 GM/DL (6.4-8.2)
[2017-07-31] MEDS ORDERED: IOHEXOL 350 MG/ML 100 ML (OMNIPAQUE 350) VIAL IV ONE (11:45)
[2017-07-31] MEDS ORDERED: NS 250 ML (IVPB) BAG IV ONE (11:45)
--- NOTE | 2017-07-31 13:43 | Diagnostic Imaging Report ---
PROCEDURE: CT chest, abdomen, and pelvis with contrast. TECHNIQUE: Multiple contiguous axial images were obtained through the chest, abdomen, and pelvis after the administration of intravenous contrast. INDICATION: Epigastric and chest pain as well as nausea and rapid weight loss. COMPARISON: No prior studies are available for comparison. CT chest: No axillary, hilar or mediastinal lymphadenopathy is detected. No pericardial or pleural fluid is seen. Parenchymal evaluation demonstrates the central airways to be patent. There is a noncalcified nodule in the superior segment of the right lower lobe measuring 9 mm. Bilateral tiny lower lobe calcified granulomas are seen. Otherwise the lungs are clear. CT abdomen and pelvis: No discrete liver mass is identified. The pancreas and spleen are unremarkable. No adrenal mass is detected. Kidneys are unremarkable. Aorta is non-aneurysmal. The stomach is dilated and fluid-filled. There are multiple dilated and fluid-filled small bowel loops throughout the abdomen. There does appear to be a transition distally. There does appear to be a knuckle of bowel loops extending slightly into the right inguinal canal. This may be the source of the obstruction. There is no free fluid or loculated collection. Bladder is unremarkable. Prostate is unremarkable. The bony structures are nonacute. IMPRESSION: 1. 9 mm noncalcified right lower lobe nodule. The nodule is too small for percutaneous biopsy. Close interval followup with repeat CT chest in 3-4 months is recommended to confirm stability. No thoracic lymphadenopathy is seen. 2. Dilated and fluid-filled stomach and small bowel loops with transition zone distally. Features are consistent with small bowel obstruction. There does appear to be a right inguinal hernia containing a knuckle of bowel, perhaps the source of the obstruction. No other significant abnormality is detected. Dictated by: Dictated on workstation # [id number]
--- NOTE | 2017-07-31 14:32 | ED General ---
General Chief Complaint: Chest Pain Stated Complaint: CP,SOB Nursing Triage Note: c/o chest pain. Onset 1 hour ago but reports having indigestion symptoms and diarrhea last night. Describes pain as pressure. Denies cough/chills/fever. Weight loss reported. Nursing Sepsis Screen: No Definite Risk Source of Information: Patient, Old Records Exam Limitations: No Limitations History of Present Illness Date Seen by Provider: July 31, 2017 Time Seen by Provider: 10:20 Initial Comments This 77-year-old gentleman with initial stated complaint of chest pain actually has epigastric pain and tenderness on initial assessment. Symptoms of discomfort started last night. He reports having some nausea and diarrhea intermittently over the past 1-2 weeks. He also has had a 5-10 pound weight loss. 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 Gonzalez for these symptoms. He presents to the ER because of worsening symptoms. Chart was reviewed and it was noted that he had a negative stress test in 2015 and a cardiac catheter in 2007 with patent stents in mild to moderate stenosis of the RCA and LAD. Patient appears cachectic and his abdomen is bloated. Allergies and Home Medications Allergies Coded Allergies: codeine (Verified Allergy, Unknown, 07/31/17) Home Medications Aspirin 81 Mg Tab.chew, 81 MG PO DAILY, (Reported) Famotidine 20 Mg Tablet, 20 MG PO BID, (Reported) Ferrous Sulfate 325 Mg Tablet, 325 MG PO DAILY, (Reported) Levetiracetam 500 Mg Tab, 500 MG PO DAILY, (Reported) Lisinopril 10 Mg Tablet, 5 MG PO DAILY, (Reported) TAKES 1/2 (10MG) TABLET Patient Home Medication List Home Medication List Reviewed: Yes Review of Systems Constitutional: see HPI EENTM: no symptoms reported Respiratory: no symptoms reported Cardiovascular: see HPI Gastrointestinal: see HPI Genitourinary: no symptoms reported Musculoskeletal: no symptoms reported Skin: no symptoms reported Psychiatric/Neurological: No Symptoms Reported Hematologic/Lymphatic: No Symptoms Reported Past Aifyhxm-Xisult-Ffbial Hx Patient Social History Alcohol Use: Denies Use Recreational Drug Use: No Smoking Status: Never a Smoker Recent Foreign Travel: No Contact w/Someone Who Travel: No Recent Infectious Disease Expo: No Recent Hopitalizations: Yes (2004 STENT PLACEMENT, 2006 CHEST PAIN, 05/30/16 CHEST PAIN) Immunizations Up To Date Tetanus Booster (TDap): Unknown Date of Pneumonia Vaccine: Dec 30, 2015 Date of Influenza Vaccine: Dec 30, 2015 Seasonal Allergies Seasonal Allergies: No Past Medical History Surgeries: Yes (HEART STENTS 2004, EVACUATION BRAIN HEMATOMA 2008) Abdominal (EGD), Cardiac, Coronary Stent, Neurological Respiratory: No Currently Using CPAP: No Currently Using BIPAP: No Cardiac: Yes (2 STENTS) Coronary Artery Disease, Heart Attack, Hypertension Neurological: Yes (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) Seizure Disorder, TIA Reproductive Disorders: No Genitourinary: No Gastrointestinal: Yes Gastroesophageal Reflux Musculoskeletal: No Endocrine: No HEENT: Yes Loss of Vision: Denies Hearing Impairment: Hard of Hearing Cancer: No Psychosocial: No Integumentary: No Blood Disorders: No Family Medical History Unknown family medical history Physical Exam Vital Signs Vital Signs - First Documented 07/31/17 10:22 Temp 97.9 Pulse 75 Resp 16 B/P (MAP) 161/96 (117) Pulse Ox 98 O2 Delivery Room Air Capillary Refill : Less Than 3 Seconds General Appearance: No Apparent Distress, WD/WN, Cachetic HEENT: PERRL/EOMI, Normal ENT Inspection, Pharynx Normal Neck: Normal Inspection Respiratory: Lungs Clear, Normal Breath Sounds, No Accessory Muscle Use, No Respiratory Distress Cardiovascular: Regular Rate, Rhythm, No Edema, No Murmur Gastrointestinal: Normal Bowel Sounds, Soft, Distended, Tenderness (epigastrium ) Extremity: Normal Inspection, No Pedal Edema Neurologic/Psychiatric: Alert, Oriented x3, No Motor/Sensory Deficits, Normal 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, 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 Norm as Tested Skin: Warm/Dry, Pallor Progress/Results/Core Measures Suspected Sepsis Recent Fever Within 48 Hours: No Infection Criteria Present: Suspected New Infection New/Unexplained Altered Menta: No Sepsis Screen: No Definite Risk SIRS Temperature:97.9 Pulse: 75 Respiratory Rate: 16 Laboratory Tests 07/31/17 10:35: White Blood Count 5.8 Blood Pressure 161 /96 Mean: 117 Laboratory Tests 07/31/17 10:35: Creatinine 0.80, INR Comment 1.1, Platelet Count 234, Total Bilirubin 0.5 Results/Orders Lab Results Laboratory Tests Test 07/31/17 10:35 Range/Units White Blood Count 5.8 4.3-11.0 10^3/uL Red Blood Count 4.12 L 4.35-5.85 10^6/uL Hemoglobin 13.0 L 13.3-17.7 G/DL Hematocrit 40 40-54 % Mean Corpuscular Volume 96 80-99 FL Mean Corpuscular Hemoglobin 32 25-34 PG Mean Corpuscular Hemoglobin Concent 33 32-36 G/DL Red Cell Distribution Width 15.3 H 10.0-14.5 % Platelet Count 234 130-400 10^3/uL Mean Platelet Volume 9.4 7.4-10.4 FL Neutrophils (%) (Auto) 69 42-75 % Lymphocytes (%) (Auto) 21 12-44 % Monocytes (%) (Auto) 9 0-12 % Eosinophils (%) (Auto) 1 0-10 % Basophils (%) (Auto) 0 0-10 % Neutrophils # (Auto) 4.0 1.8-7.8 X 10^3 Lymphocytes # (Auto) 1.2 1.0-4.0 X 10^3 Monocytes # (Auto) 0.5 0.0-1.0 X 10^3 Eosinophils # (Auto) 0.0 0.0-0.3 10^3/uL Basophils # (Auto) 0.0 0.0-0.1 10^3/uL Prothrombin Time 14.6 12.2-14.7 SEC INR Comment 1.1 0.8-1.4 Activated Partial Thromboplast Time 31 24-35 SEC Sodium Level 143 135-145 MMOL/L Potassium Level 3.9 3.6-5.0 MMOL/L Chloride Level 107 98-107 MMOL/L Carbon Dioxide Level 27 21-32 MMOL/L Anion Gap 9 5-14 MMOL/L Blood Urea Nitrogen 7 7-18 MG/DL Creatinine 0.80 0.60-1.30 MG/DL Estimat Glomerular Filtration Rate > 60 BUN/Creatinine Ratio 9 Glucose Level 101 70-105 MG/DL Calcium Level 9.2 8.5-10.1 MG/DL Magnesium Level 2.3 1.8-2.4 MG/DL Total Bilirubin 0.5 0.1-1.0 MG/DL Aspartate Amino Transf (AST/SGOT) 40 H 5-34 U/L Alanine Aminotransferase (ALT/SGPT) 38 0-55 U/L Alkaline Phosphatase 106 40-136 U/L Myoglobin 56.0 10.0-92.0 NG/ML Troponin I < 0.30 <0.30 NG/ML Total Protein 7.5 6.4-8.2 GM/DL Albumin 3.7 3.2-4.5 GM/DL Lipase 16 8-78 U/L My Orders Orders - ROD CAMPO MD Continuous Ekg Monitoring (07/31/17 10:20) Ekg Tracing (07/31/17 10:20) Cbc With Automated Diff (07/31/17 10:22) Magnesium (07/31/17 10:22) Chest 1 View, Ap/Pa Only (07/31/17 10:22) Cardiac Profile 1 (07/31/17 10:22) Comprehensive Metabolic Panel (07/31/17 10:22) Myoglobin Serum (07/31/17 10:22) Protime With Inr (07/31/17 10:22) Partial Thromboplastin Time (07/31/17 10:22) O2 (07/31/17 10:22) Monitor-Rhythm Ecg Trace Only (07/31/17 10:22) Lipid Panel (08/01/17 06:00) Saline Lock/Iv-Start (07/31/17 10:22) Lipase (07/31/17 10:29) Ua Culture If Indicated (07/31/17 10:29) Ondansetron Injection (Zofran Injectio (07/31/17 10:30) Ranitidine Injection (Zantac Injection) (07/31/17 10:30) Saline Lock/Iv-Start (07/31/17 10:29) Lactated Ringers (Lr 1000 Ml Iv Solution (07/31/17 10:29) Ct Chest/Abdomen/Pelvis W (07/31/17 11:30) Iohexol Injection (Omnipaque 350 Mg/Ml 1 (07/31/17 11:45) Ns (Ivpb) (Sodium Chloride 0.9%) (07/31/17 11:45) Ng Tube Insert & Assessment (07/31/17 13:48) Medications Given in ED Current Medications Medications Dose Ordered Sig/Andrei Route Start Time Stop Time Status Last Admin Dose Admin Iohexol 100 ml ONCE ONCE IV 07/31/17 11:45 07/31/17 11:46 DC 07/31/17 12:03 100 ML Lactated Ringer's 1,000 ml @ 0 mls/hr Q0M ONCE IV 07/31/17 10:29 07/31/17 10:32 DC 07/31/17 10:55 1,000 MLS/HR Ondansetron HCl 4 mg ONCE ONCE IVP 07/31/17 10:30 07/31/17 10:32 DC 07/31/17 10:55 4 MG Ranitidine HCl 50 mg ONCE ONCE IM/IV 07/31/17 10:30 07/31/17 10:32 DC 07/31/17 10:56 50 MG Sodium Chloride 250 ml ONCE ONCE IV 07/31/17 11:45 07/31/17 11:46 DC 07/31/17 12:03 80 ML Vital Signs/I&O 07/31/17 07/31/17 07/31/17 10:22 10:56 16:08 Temp 97.9 97.9 98.6 Pulse 75 74 Resp 16 16 B/P (MAP) 161/96 (117) 161/81 (107) Pulse Ox 98 96 O2 Delivery Room Air Room Air Capillary Refill : Less Than 3 Seconds Blood Pressure Mean: 117 Progress Note : Progress Note The complaint of chest pain really seem to be more of an epigastric pain. This pain dissipated. Cardiac workup was unremarkable. Patient was evaluated further with CT scan and found to have pulmonary nodule and a small bowel obstruction, possibly related to a right inguinal hernia. Dr. Rhodes was contacted and presented to the emergency room to see the patient. He was able to reduce the hernia. Patient is being admitted for further observation. A small bowel follow-through is planned for tomorrow. Patient will be kept nothing by mouth an NG tube was placed in the ER. Dr. Yap was consulted for medical management. Diagnostic Imaging Diagonstic Imaging: Xray Plain Films/CT/US/NM/MRI: chest Comments NAME: [facility]CAR[facility] REC#: [id number] PT STATUS: ADM Andre : 1940 PHYSICIAN: ROD CAMPO MD ADMIT DATE: 07/31/17 Signed Date of Exam: 07/31/17 CHEST 1 VIEW, AP/PA ONLY INDICATION: Chest pain. Time of exam: 10:38 AM Correlation is made with prior study of 05/30/2016. The heart size is stable. The lungs are clear. No infiltrates are detected. No effusion or pneumothorax is seen. IMPRESSION: No acute cardiopulmonary process is detected. Dictated by: Dictated on workstation # [id number] Dict: 07/31/17 1053 Trans: 07/31/17 1532 Interpreted by: TRAN BARNES MD Electronically signed by: TRAN BARNES MD 07/31/17 1532 Diagonstic Imaging: CT Plain Films/CT/US/NM/MRI: abdomen, pelvis Comments CT abdomen and pelvis viewed by me and report reviewed. Reviewed with the radiologist. See report below: NAME: JUAN [facility]CAR[facility] REC#: [id number] PT STATUS: ADM Andre : 1940 PHYSICIAN: ROD CAMPO MD ADMIT DATE: 07/31/17 Signed Date of Exam: 07/31/17 CT CHEST/ABDOMEN/PELVIS W PROCEDURE: CT chest, abdomen, and pelvis with contrast. TECHNIQUE: Multiple contiguous axial images were obtained through the chest, abdomen, and pelvis after the administration of intravenous contrast. INDICATION: Epigastric and chest pain as well as nausea and rapid weight loss. COMPARISON: No prior studies are available for comparison. CT chest: No axillary, hilar or mediastinal lymphadenopathy is detected. No pericardial or pleural fluid is seen. Parenchymal evaluation demonstrates the central airways to be patent. There is a noncalcified nodule in the superior segment of the right lower lobe measuring 9 mm. Bilateral tiny lower lobe calcified granulomas are seen. Otherwise the lungs are clear. CT abdomen and pelvis: No discrete liver mass is identified. The pancreas and spleen are unremarkable. No adrenal mass is detected. Kidneys are unremarkable. Aorta is non-aneurysmal. The stomach is dilated and fluid-filled. There are multiple dilated and fluid-filled small bowel loops throughout the abdomen. There does appear to be a transition distally. There does appear to be a knuckle of bowel loops extending slightly into the right inguinal canal. This may be the source of the obstruction. There is no free fluid or loculated collection. Bladder is unremarkable. Prostate is unremarkable. The bony structures are nonacute. IMPRESSION: 1. 9 mm noncalcified right lower lobe nodule. The nodule is too small for percutaneous biopsy. Close interval followup with repeat CT chest in 3-4 months is recommended to confirm stability. No thoracic lymphadenopathy is seen. 2. Dilated and fluid-filled stomach and small bowel loops with transition zone distally. Features are consistent with small bowel obstruction. There does appear to be a right inguinal hernia containing a knuckle of bowel, perhaps the source of the obstruction. No other significant abnormality is detected. Dictated by: Dictated on workstation # [id number] Dict: 07/31/17 1325 Trans: 07/31/17 1532 Interpreted by: TRAN BARNES MD Electronically signed by: TRAN BARNES MD 07/31/17 153 Diagonstic Imaging: Xray Plain Films/CT/US/NM/MRI: chest Comments Chest x-ray for NG line placement viewed by me. Tube in good placement. NAME: [facility]CAR[facility] REC#: [id number] PT STATUS: ADM Andre : 1940 PHYSICIAN: JILL JOYA ADMIT DATE: 07/31/17 Signed Date of Exam: 07/31/17 CHEST 1 VIEW, AP/PA ONLY INDICATION: NG tube placement. TIME OF EXAMINATION: 02:51 p.m. COMPARISON: Correlation is made with prior study from earlier the same day. FINDINGS: An NG tube has been placed. The tip passes below the diaphragm. Tip is located in the gastric body. The proximal side-port is near the GE junction. There is some gaseous distention of bowel loops in the upper abdomen. The lungs are clear. IMPRESSION: NG tube placement, as described. Dictated by: Dictated on workstation # [id number] Dict: 07/31/17 1502 Trans: 07/31/17 1535 Interpreted by: TRAN BARNES MD Electronically signed by: TRAN BARNES MD 07/31/17 1535 Departure Communication (Admissions) Time/Spoke to Admitting Phy: 13:45 Dr. Rhodes Time/Spoke to Consulting Phy: 14:20 Dr. Yap Impression Primary Impression: Small bowel obstruction Additional Impressions: Reducible right inguinal hernia Abdominal pain Qualified Codes: R10.13 - Epigastric pain Disposition: ADMITTED INPATIENT Condition: Improved Admissions Decision to Admit Reason: Admit from ER (General) Decision to Admit/Date: July 31, 2017 Time/Decision to Admit Time: 13:45 Departure-Patient Inst. Referrals: JAVIER GONZALEZ MD (PCP/Family) Primary Care Physician ROD CAMPO MD July 31, 2017 14:32
--- NOTE | 2017-07-31 15:07 | Diagnostic Imaging Report ---
INDICATION: NG tube placement. TIME OF EXAMINATION: 02:51 p.m. COMPARISON: Correlation is made with prior study from earlier the same day. FINDINGS: An NG tube has been placed. The tip passes below the diaphragm. Tip is located in the gastric body. The proximal side-port is near the GE junction. There is some gaseous distention of bowel loops in the upper abdomen. The lungs are clear. IMPRESSION: NG tube placement, as described. Dictated by: Dictated on workstation # [id number]
[2017-07-31 16:08] VITALS: BP 161/81
[2017-07-31] MEDS ORDERED: ONDANSETRON 4 MG/2 ML (SDV) Z0FRAN IV PRN (16:45)
[2017-07-31] MEDS ORDERED: CATHETER FLUSH 10 ML SYR IV PRN (16:45)
[2017-07-31] MEDS: D5 1/2 NS W/KCL 20 MEQ/L 1,000 ML IV SCH (16:51)
--- NOTE | 2017-07-31 18:09 | History & Physical-Surgical ---
History of Present Illness History of Present Illness Reason for visit/HPI CC: chest pain, epigastric abdominal pain nausea and vomiting Patient is a 77 year old male that had been having intermittent epigastric abdominal/chest pain for 1-2 weeks. 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 Morrison for this. This worsened today. He is having lot of nausea and some emesis. Pain moderate and having abdominal distention. Patient having some episodes of diarrhea but not having flatus or bm today. Abdomen is more distended. Has lost some weight. Denies fever sweats chills shortness of breath or chest pain. Patient i reviewed his ct and is consistent with small bowel obstruction possibly secondary to right inguinal hernia. Date of Admission July 31, 2017 at 14:31 Date Seen by Provider: July 31, 2017 Time Seen by Provider: 14:31 I consulted on this patient on 07/31/17 14:31 Attending Physician Maximiliano Rhodes DO Admitting Physician Jose Antonio Morrison MD Consult Allergies and Home Medications Allergies Coded Allergies: codeine (Verified Allergy, Unknown, 07/31/17) Home Medications Aspirin 81 Mg Tab.chew, 81 MG PO DAILY, (Reported) Famotidine 20 Mg Tablet, 20 MG PO BID, (Reported) Ferrous Sulfate 325 Mg Tablet, 325 MG PO DAILY, (Reported) Levetiracetam 500 Mg Tab, 500 MG PO DAILY, (Reported) Lisinopril 10 Mg Tablet, 5 MG PO DAILY, (Reported) TAKES 1/2 (10MG) TABLET Patient Home Medication List Home Medication List Reviewed: Yes Past Ixnjaqh-Qataxq-Xtbqtz Hx Patient Social History Alcohol Use: Denies Use Recreational Drug Use: No Smoking Status: Never a Smoker Recent Foreign Travel: No Contact w/Someone Who Travel: No Recent Infectious Disease Expo: No Recent Hopitalizations: No (2004 STENT PLACEMENT, 2006 CHEST PAIN, 05/30/16 CHEST PAIN) Physical Abuse Screen: No Sexual Abuse: No Immunizations Up To Date Tetanus Booster (TDap): Unknown Date of Pneumonia Vaccine: Dec 30, 2015 Date of Influenza Vaccine: Dec 30, 2015 Seasonal Allergies Seasonal Allergies: No Surgeries History of Surgeries: Yes (HEART STENTS 2004, EVACUATION BRAIN HEMATOMA 2008) Surgeries: Abdominal (EGD), Cardiac, Coronary Stent, Neurological Respiratory History of Respiratory Disorde: No Cardiovascular History of Cardiac Disorders: Yes (2 STENTS) Cardiac Disorders: Coronary Artery Disease, Heart Attack, Hypertension Neurological History of Neurological Disord: Yes (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) Neurological Disorders: Seizure Disorder, TIA Reproductive System Hx Reproductive Disorders: No Genitourinary History of Genitourinary Disor: No Gastrointestinal History of Gastrointestinal Di: Yes Gastrointestinal Disorders: Abdominal Hernia, Gastroesophageal Reflux Musculoskeletal History of Musculoskeletal Dis: No Endocrine History of Endocrine Disorders: No HEENT History of HEENT Disorders: Yes Loss of Vision: Denies Hearing Impairment: Hard of Hearing Cancer History of Cancer: No Psychosocial History of Psychiatric Problem: No Integumentary History of Skin or Integumenta: No Blood Transfusions History of Blood Disorders: No Family Medical History Significant Family History: No Pertinent Family Hx Family Medial History: Unknown family medical history Constitutional: weight loss EENTM: no symptoms reported Respiratory: no symptoms reported Cardiovascular: no symptoms reported Gastrointestinal: see HPI Genitourinary: no symptoms reported Musculoskeletal: no symptoms reported Skin: no symptoms reported Psychiatric/Neurological: No Symptoms Reported Physical Exam Vital Signs Vital Signs - First Documented 07/31/17 10:22 Temp 97.9 Pulse 75 Resp 16 B/P (MAP) 161/96 (117) Pulse Ox 98 O2 Delivery Room Air Capillary Refill : Less Than 3 Seconds General Appearance: Chronically ill, Cachetic HEENT: PERRL/EOMI, Normal ENT Inspection Neck: Non Tender Respiratory: Chest Non Tender, No Accessory Muscle Use, No Respiratory Distress Cardiovascular: Regular Rate, Rhythm Gastrointestinal: Distended (no significant tenderness on exam, right inguinal hernia present, not tender and able to be reduced.) Rectal: Deferred Back: Normal Inspection, No CVA Tenderness Extremity: Normal Inspection, Non Tender Neurologic/Psychiatric: Alert, Oriented x3, No Motor/Sensory Deficits, Normal Mood/Affect Skin: Normal Color, Warm/Dry Lymphatic: No Adenopathy Data Review Labs Laboratory Tests 07/31/17 10:35: White Blood Count 5.8, Red Blood Count 4.12L, Hemoglobin 13.0L, Hematocrit 40, Mean Corpuscular Volume 96, Mean Corpuscular Hemoglobin 32, Mean Corpuscular Hemoglobin Concent 33, Red Cell Distribution Width 15.3H, Platelet Count 234, Mean Platelet Volume 9.4, Neutrophils (%) (Auto) 69, Lymphocytes (%) (Auto) 21, Monocytes (%) (Auto) 9, Eosinophils (%) (Auto) 1, Basophils (%) (Auto) 0, Neutrophils # (Auto) 4.0, Lymphocytes # (Auto) 1.2, Monocytes # (Auto) 0.5, Eosinophils # (Auto) 0.0, Basophils # (Auto) 0.0, Prothrombin Time 14.6, INR Comment 1.1, Activated Partial Thromboplast Time 31, Sodium Level 143, Potassium Level 3.9, Chloride Level 107, Carbon Dioxide Level 27, Anion Gap 9, Blood Urea Nitrogen 7, Creatinine 0.80, Estimat Glomerular Filtration Rate > 60 , BUN/Creatinine Ratio 9, Glucose Level 101, Calcium Level 9.2, Magnesium Level 2.3, Total Bilirubin 0.5, Aspartate Amino Transf (AST/SGOT) 40H, Alanine Aminotransferase (ALT/SGPT) 38, Alkaline Phosphatase 106, Myoglobin 56.0, Troponin I < 0.30, Total Protein 7.5, Albumin 3.7, Lipase 16 Assessment/Plan Assessment/Plan Admission Diagonsis small bowel obstruction right inguinal hernia coronary artery disease 9mm right lower lobe lung nodule - followup scan 3-4 months recommended. patient right inguinal hernia reduced and could be cause of small bowel obstruction, ng tube iv hydration will get small bowel follow through in am after bowel decompressed by NG tube recommend right inguinal hernia repair soon, could be done as outpatient or inpatient need to get clearance consult medicine-Dr. Yap Admission Status: Inpatient Order (span 2 midnights) Reason for Inpatient Admission: patient needs further imaging studies and monitored incase needs surgical intervention Assessment/Plan small bowel obstruction right inguinal hernia coronary artery disease 9mm right lower lobe lung nodule - followup scan 3-4 months recommended. patient right inguinal hernia reduced and could be cause of small bowel obstruction, ng tube iv hydration will get small bowel follow through in am after bowel decompressed by NG tube recommend right inguinal hernia repair soon, could be done as outpatient or inpatient need to get clearance consult medicine-Dr. Yap Clinical Quality Measures AMI/AHF: ASA po Prior to arrival: No DVT/VTE Risk/Contraindication: Risk Factor Score Per Nursin RFS Level Per Nursing on Admit: 2=Moderate MAXIMILIANO RHODES DO July 31, 2017 18:09
[2017-07-31 20:07] VITALS: BP 157/83
[2017-07-31] MEDS ORDERED: raNItidine 50 MG/NS 100 ML IVPB IV SCH ×2 (21:00)
[2017-07-31 23:56] VITALS: BP 168/87
[2017-08-01] MEDS: D5 1/2 NS W/KCL 20 MEQ/L 1,000 ML IV SCH ×3 (02:13→16:49)
[2017-08-01 03:57] VITALS: BP 145/82
[2017-08-01 06:21] LABS: BASOPHILS % (AUTO) 0 % (0-10); EOSINOPHILS % (AUTO) 1 % (0-10); HEMATOCRIT 40 % (40-54); HEMOGLOBIN 13.2 G/DL (13.3-17.7); LYMPHOCYTES % (AUTO) 20 % (12-44); MEAN CORPUSCULAR HEMOGLOBIN 32 PG (25-34); MEAN CORPUSCULAR HGB CONC 33 G/DL (32-36); MEAN CORPUSCULAR VOLUME 97 FL (80-99); MEAN PLATELET VOLUME 9.4 FL (7.4-10.4); MONOCYTES # (AUTO) 0.4 X 10^3 (0.0-1.0); MONOCYTES % (AUTO) 9 % (0-12); NEUTROPHILS # (AUTO) 3.3 X 10^3 (1.8-7.8); NEUTROPHILS % (AUTO) 69 % (42-75); PLATELET COUNT 236 10^3/uL (130-400); RED BLOOD COUNT 4.12 10^6/uL (4.35-5.85); RED CELL DISTRIBUTION WIDTH 15.9 % (10.0-14.5); WHITE BLOOD COUNT 4.7 10^3/uL (4.3-11.0)
[2017-08-01 06:45] LABS: ALANINE AMINOTRANSFERASE 28 U/L (0-55); ALBUMIN 3.2 GM/DL (3.2-4.5); ALKALINE PHOSPHATASE 114 U/L (40-136); BILIRUBIN,TOTAL 0.5 MG/DL (0.1-1.0); BUN/CREATININE RATIO 6; CALCIUM 8.8 MG/DL (8.5-10.1); CARBON DIOXIDE 27 MMOL/L (21-32); CHLORIDE 107 MMOL/L (98-107); CREATININE SERUM 0.77 MG/DL (0.60-1.30); GFR ESTIMATED > 60; GLUCOSE 124 MG/DL (70-105); POTASSIUM 3.8 MMOL/L (3.6-5.0); SODIUM 140 MMOL/L (135-145); TOTAL PROTEIN 6.5 GM/DL (6.4-8.2)
[2017-08-01 06:46] LABS: CHOLESTEROL 151 MG/DL (< 200); HDL CHOLESTEROL 28 MG/DL (40-60); TRIGLYCERIDES 91 MG/DL (<150); VLDL CHOLESTEROL 18 MG/DL (5-40)
[2017-08-01 07:59] VITALS: BP 160/82
[2017-08-01] MEDS ORDERED: DIATRIZOATE MEGLUM/SODIUM 37% 120 ML (GASTROGRAFIN) NG ONE (09:00)
[2017-08-01] MEDS ORDERED: raNItidine 50 MG/2 ML INJ (ZANTAC) IV SCH (09:00)
--- NOTE | 2017-08-01 11:36 | Diagnostic Imaging Report ---
Indication: Possible small bowel obstruction. Approximately 120 cc of Gastrografin in 120 cc water was injected through the patient's indwelling NG tube and serial radiographs of the abdomen were obtained. Initial images do demonstrate some mild to moderate small bowel distention, however, there appears to be normal progression of contrast through the small bowel. Small bowel appears to be within the colon at approximately 2 hours. No complete obstruction is seen. Mucosal fold pattern is unremarkable. No lesion is identified. Impression: No evidence of small bowel obstruction. Dictated by: Dictated on workstation # [id number]
[2017-08-01 11:48] VITALS: BP 158/80
--- NOTE | 2017-08-01 11:54 | Consultation-Hospitalist ---
HPI History of Present Illness: HPI/Chief Complaint CC: Medical management in SBO patient HPI: This is a 77-year-old white male clinic patient of Dr. Morrison with a past medical history of CAD previous 2 stents in [address] Agarwal, seizure disorder due to subdural hematoma left parietal region due to Plavix maintenance maintained on Lamictal and hypertension who presents to the hospital with abdominal pain and found to have small bowel obstruction and currently NG tube is in place hernia was reduced by Dr. Rhodes and small bowel follow-through results are pending at time of this dictation the patient much improved. He saw Dr. Agarwal last week for his six-month checkup and all was well. He appears to be very frail but he resides at home with his . He retired in 2004 when he had his heart attack after working 11 years that [employer]. Source: patient Exam Limitations: no limitations Date Seen 08/01/17 Attending Physician Golden Rhodes DO PCP Jose Antonio Morrison MD Referring Physician Date of Admission July 31, 2017 at 14:31 Home Medications & Allergies Home Medications Reviewed patient Home Medication Reconciliation performed by pharmacy medication reconciliations health care technician and/or nursing. Patients Allergies have been reviewed. Allergies Allergies Coded Allergies codeine (Verified Allergy, Unknown, 07/31/17) Past Ckealvw-Ixwqpa-Xozgmy Hx Past Med/Social Hx: Reviewed Nursing Past Med/Soc Hx, Reviewed and Corrections made Patient Social History Marrital Status: (53 years) Employed/Student: retired (retired [employer]) Alcohol Use: Denies Use Recreational Drug Use: No Smoking Status: Never a Smoker Physical Abuse Screen: No Sexual Abuse: No Recent Foreign Travel: No Contact w/other who traveled: No Recent Hopitalizations: No (2004 STENT PLACEMENT, 2006 CHEST PAIN, 05/30/16 CHEST PAIN) Recent Infectious Disease Expo: No Immunizations Up To Date Tetanus Booster (TDap): Unknown Date of Pneumonia Vaccine: Dec 30, 2015 Date of Influenza Vaccine: Dec 30, 2015 Seasonal Allergies Seasonal Allergies: No Past Medical History Surgeries: Abdominal (EGD), Cardiac, Coronary Stent, Neurological Currently Using CPAP: No Currently Using BIPAP: No Cardiac: Coronary Artery Disease, Heart Attack, Hypertension Neurological: Seizure Disorder, TIA Reproductive: No Gastrointestinal: Abdominal Hernia, Gastroesophageal Reflux Loss of Vision: Denies Hearing Impairment: Hard of Hearing History of Blood Disorders: No Family History Unknown family medical history No Pertinent Family Hx, Hypertension Review of Systems Constitutional: see HPI, weakness EENTM: no symptoms reported Respiratory: no symptoms reported Cardiovascular: no symptoms reported Gastrointestinal: abdominal pain (RLQ) Genitourinary: no symptoms reported Musculoskeletal: no symptoms reported Skin: no symptoms reported Psychiatric/Neurological: No Symptoms Reported All Other Systems Reviewed Negative Unless Noted: Yes Physical Exam Physical Exam Vital Signs Vital Signs - First Documented 07/31/17 10:22 Temp 97.9 Pulse 75 Resp 16 B/P (MAP) 161/96 (117) Pulse Ox 98 O2 Delivery Room Air Capillary Refill : Less Than 3 Seconds General Appearance: No Apparent Distress, Chronically ill, Cachetic Eyes: Bilateral Eye Normal Inspection, Bilateral Eye PERRL HEENT: PERRL/EOMI, Normal ENT Inspection, Pharynx Normal Neck: Full Range of Motion, Normal Inspection, Non Tender, Supple, Carotid Bruit Respiratory: Chest Non Tender, Lungs Clear, Normal Breath Sounds, No Accessory Muscle Use, No Respiratory Distress Cardiovascular: Regular Rate, Rhythm, No Edema, No Gallop, No JVD, No Murmur, Normal Peripheral Pulses Gastrointestinal: Normal Bowel Sounds, No Organomegaly, No Pulsatile Mass, Non Tender, Soft Back: Normal Inspection, No CVA Tenderness, No Vertebral Tenderness Extremity: Normal Capillary Refill, Normal Inspection, Normal Range of Motion, Non Tender, No Calf Tenderness, No Pedal Edema Neurologic/Psychiatric: Alert, Oriented x3, No Motor/Sensory Deficits, Normal Mood/Affect Skin: Normal Color, Warm/Dry Lymphatic: No Adenopathy Results Results/Procedures Labs Laboratory Tests 07/31/17 10:35 08/01/17 05:28 08/01/17 05:38 Patient resulted labs reviewed. Assessment/Plan Assessment and Plan Assess & Plan/Chief Complaint Assessment: Acute small bowel obstruction with reducible hernia NG tube in place and small bowel follow-through results pending History of seizure disorder from subdural hematoma left parietal CAD previous 2 stents in [address] Agarwal Frail status Plan: Maintain home meds NG tube Follow-up small bowel series We'll follow with you Diagnosis/Problems Diagnosis/Problems (1) Abdominal pain Status: Acute Qualifiers: Abdominal location: epigastric Qualified Codes: R10.13 - Epigastric pain (2) Small bowel obstruction Status: Acute (3) Reducible right inguinal hernia Status: Acute (4) Seizure disorder Status: Chronic (5) Frailty Status: Chronic (6) Coronary artery disease Status: Chronic Qualifiers: Coronary Disease-Associated Artery/Lesion type: [place] artery [place] vs. transplanted heart: [place] heart Associated angina: without angina Qualified Codes: I25.10 - Atherosclerotic heart disease of [place] coronary artery without angina pectoris (7) Cerebrovascular accident due to cerebral artery occlusion Status: Chronic Clinical Quality Measures AMI/AHF: ASA po Prior to arrival: No DVT/VTE Risk/Contraindication: Risk Factor Score Per Nursin RFS Level Per Nursing on Admit: 2=Moderate JORDAN WHITE DO August 01, 2017 11:54
[2017-08-01 15:26] VITALS: BP 166/81
--- NOTE | 2017-08-01 17:22 | Discharge Inst-Simple/Standard ---
Discharge Inst-Standard Patient Instructions/Follow Up Plan of Care/Instructions/FU: Dr. Rhodes on Friday. Hold aspirin Activity as Tolerated: No Discharge Diet: Regular Diet Other Inst to Patient Follow up Appt: Make appointment for Friday Instructions: No lifting greater than 10 pounds. No strenuous activity. No Smoking If hernia pops out, try and reduce it, if unable to reduce then go to emergency department at that time. Symptoms to Report: Appetite Changes, Extremity Discoloration, Numbness/Tingling, Swelling Increased , Bleeding Excessive, Eyesight Changes, Pain Increased, Urine Color Change, Constipation(Persistent), Fever over 101 degree F, Pain/Pressure in chest, Urinating Difficulty, Cough Up/Vomit Blood, Heart Beat Irreg/Pounding, Pain/ Pressure in jaw, Vaginal Bleeding Increase, Cramps in feet or legs, Lightheadedness, Pain/Pressure in shoulder, Diarrhea(Persistent), Memory Changes Suddenly, Questions/Concerns, Weight gain consecutive days, Dizziness/ Fainting, Nausea/Vomiting, Shortness of Breath, Weight gain over 2 pounds If questions or concerns contact your physician Or seek help at emergency department. MAXIMILIANO RHODES DO August 01, 2017 17:22
--- NOTE | 2017-08-01 17:29 | Progress Note ---
Subjective Date Seen by Provider: August 01, 2017 Time Seen by Provider: 17:26 Subjective/Events-last exam having bm. no pain. tolerating liquids. denies n/v fever sweats chills shortness of breath or chest pain. wanting to go home small bowel follow through no evidence of obstruction Objective Exam Vital Signs Date Time Temp Pulse Resp B/P (MAP) Pulse Ox O2 Delivery O2 Flow Rate FiO2 08/01/17 15:26 98.3 84 18 166/81 (109) 96 Room Air 08/01/17 11:48 98.0 78 18 158/80 (106) 95 Room Air 08/01/17 08:43 Room Air 08/01/17 07:59 97.3 80 18 160/82 (108) 94 Room Air 08/01/17 03:57 97.2 85 16 145/82 (103) 94 Room Air 07/31/17 23:56 97.4 78 17 168/87 (114) 95 Room Air 07/31/17 20:07 98.4 75 18 157/83 (107) 95 Room Air I & O 08/01/17 07:00 Intake Total 1000 ml Output Total 2550 ml Balance -1550 ml Capillary Refill : Less Than 3 Seconds General Appearance: No Apparent Distress, Chronically ill, Cachetic HEENT: PERRL/EOMI, Normal ENT Inspection, Pharynx Normal Neck: Full Range of Motion, Normal Inspection, Non Tender, Supple, Carotid Bruit Respiratory: Chest Non Tender, Lungs Clear, Normal Breath Sounds, No Accessory Muscle Use, No Respiratory Distress Cardiovascular: Regular Rate, Rhythm, No Edema, No Gallop, No JVD, No Murmur, Normal Peripheral Pulses Gastrointestinal: non tender, soft, other (right inguinal hernia reduced) Extremity: Normal Capillary Refill, Normal Inspection, Normal Range of Motion, Non Tender, No Calf Tenderness, No Pedal Edema Neurologic/Psychiatric: Alert, Oriented x3, No Motor/Sensory Deficits, Normal Mood/Affect Skin: Normal Color, Warm/Dry Lymphatic: No Adenopathy Results Lab Laboratory Tests 08/01/17 05:28: White Blood Count 4.7, Red Blood Count 4.12L, Hemoglobin 13.2L, Hematocrit 40, Mean Corpuscular Volume 97, Mean Corpuscular Hemoglobin 32, Mean Corpuscular Hemoglobin Concent 33, Red Cell Distribution Width 15.9H, Platelet Count 236, Mean Platelet Volume 9.4, Neutrophils (%) (Auto) 69, Lymphocytes (%) (Auto) 20, Monocytes (%) (Auto) 9, Eosinophils (%) (Auto) 1, Basophils (%) (Auto) 0, Neutrophils # (Auto) 3.3, Lymphocytes # (Auto) 1.0, Monocytes # (Auto) 0.4, Eosinophils # (Auto) 0.0, Basophils # (Auto) 0.0 08/01/17 05:38: Sodium Level 140, Potassium Level 3.8, Chloride Level 107, Carbon Dioxide Level 27, Anion Gap 6, Blood Urea Nitrogen 5L, Creatinine 0.77, Estimat Glomerular Filtration Rate > 60, BUN/Creatinine Ratio 6, Glucose Level 124H, Calcium Level 8.8, Total Bilirubin 0.5, Aspartate Amino Transf (AST/SGOT) 26, Alanine Aminotransferase (ALT/SGPT) 28, Alkaline Phosphatase 114, Total Protein 6.5, Albumin 3.2 08/01/17 05:55: Triglycerides Level 91, Cholesterol Level 151, LDL Cholesterol Direct 106, VLDL Cholesterol 18, HDL Cholesterol 28L Assessment/Plan Assessment/Plan Admission Diagonsis small bowel obstruction right inguinal hernia history of seizures cad small bowel follow through no obstruction having stools tolerating liquids patient wants to go home and have outpatient hernia repair. This is an acceptable plan. Patient will follow up with myself on Friday and plan accordingly. Assessment/Plan small bowel obstruction right inguinal hernia coronary artery disease 9mm right lower lobe lung nodule - followup scan 3-4 months recommended. patient right inguinal hernia reduced and could be cause of small bowel obstruction, ng tube iv hydration will get small bowel follow through in am after bowel decompressed by NG tube recommend right inguinal hernia repair soon, could be done as outpatient or inpatient need to get clearance consult medicine-Dr. Yap Final Diagnosis small bowel obstruction right inguinal hernia history of seizures cad Clinical Quality Measures AMI/AHF: ASA po Prior to arrival: No DVT/VTE Risk/Contraindication: Risk Factor Score Per Nursin RFS Level Per Nursing on Admit: 2=Moderate MAXIMILIANO LUU DO August 01, 2017 17:29
[2017-08-02] MEDS ORDERED: FERROUS SULF 325 MG (IRON) TAB PO SCH (08:00)
[2017-08-02] MEDS ORDERED: NON-FORMULARY MEDICATION 1 EA EA (Lisinopril 5 MG) PO SCH (09:00)
[2017-08-02] MEDS ORDERED: lisINopril 5 MG (PRINIVIL) TABLET PO SCH (09:00)
[2017-08-02] MEDS ORDERED: LEVETIRACETAM 500 MG PO SCH (09:00)
[2017-08-02] MEDS ORDERED: ASPIRIN 81 MG CHEW (CHILDREN'S ASA) PO SCH (09:00)
[2017-08-02] MEDS ORDERED: LEVETIRACETAM 500 MG (KEPPRA) TAB PO SCH (09:00)
[2017-08-07] MEDS ORDERED: ACHD5005 PO (10:02)
[2017-08-07] MEDS ORDERED: DOCU-143 PO (10:02)
== END 2017-08-01 17:17 | disposition home or self-care (01) ==
LOC: EDUNIT# 10:14 → ER 10:15 → 4TH 14:31 → UNDOADMOB 14:31 → 4TH 14:32
PROVIDERS: ADMIT Surgery; ATTEND Surgery
DX: K56.609 Unspecified intestinal obstruction, unspecified as to partial versus complete obstruction (principal); K40.90 Unilateral inguinal hernia, without obstruction or gangrene, not specified as recurrent; G40.909 Epilepsy, unspecified, not intractable, without status epilepticus; I25.10 Atherosclerotic heart disease of native coronary artery without angina pectoris; I10 Essential (primary) hypertension; I25.2 Old myocardial infarction; K21.9 Gastro-esophageal reflux disease without esophagitis; R91.1 Solitary pulmonary nodule; Z86.73 Personal history of transient ischemic attack (TIA), and cerebral infarction without residual deficits; Z95.5 Presence of coronary angioplasty implant and graft
CPT/HCPCS: 36415; 71045; 71260; 74177; 74250; 80053; 80061; 83690; 83735; 83874; 84484; 85025; 85610; 85730; 93005; 93041; 96361; 96374; 96375; G0378

== ENCOUNTER 2017-08-06 09:01 | Outpatient (CLI) | payer MEDICARE ==
[~2017-08-06] VITALS: Ht 182.9 cm; Wt 49.6 kg
[2017-08-06] MEDS ORDERED: FERR325T18 PO (09:16)
[2017-08-06] MEDS ORDERED: LEVE500T6 PO (09:16)
[2017-08-06] MEDS ORDERED: FAMO20TA3 PO (09:16)
[2017-08-07] MEDS ORDERED: ACHD5005 PO (10:02)
[2017-08-07] MEDS ORDERED: DOCU-143 PO (10:02)
== END 2017-08-06 12:00 ==
LOC: PREOP 09:01
PROVIDERS: ATTEND Surgery
DX: Z01.818 Encounter for other preprocedural examination (principal); Z11.2 Encounter for screening for other bacterial diseases; K40.90 Unilateral inguinal hernia, without obstruction or gangrene, not specified as recurrent
CPT/HCPCS: 87081

== ENCOUNTER 2017-12-08 17:52 | Inpatient (IN) | payer MEDICARE, OTHER ==
[~2017-12-08] VITALS: Ht 182.9 cm; Wt 48.5 kg
[~2017-12-08 17:52] MED LIST changes: +ACHD5005 PO; +DOCU-143 PO; +FERR325T18 PO; +LEVE500T6 PO
--- OUTSIDE RECORDS SUMMARY | 2017-12-08 18:08 | XMS REPORT ---
Author Author NICOLE ISAAC Organization [facility] Address [address] [place] [address] Care Team Providers Care Aircraft Structure Mechanic Name Role Phone NICOLE ISAAC Unavailable PROBLEMS Unknown Problems ALLERGIES No Information ENCOUNTERS Encounter Location Date Diagnosis [facility] [address] [facility]NOTE [address]] [id number] [address] Feb, Encounter for immunization Z23 [facility] [address] [facility] [place]NOTE [address]] [id number] [address] Feb, Encounter for immunization Z23 IMMUNIZATIONS Vaccine Route Administration Date Status FLUARIX QUAD (3 AND UP) 2016 IM Intramuscular Mar 11, 2017 Administered SOCIAL HISTORY Never Assessed REASON FOR VISIT Flu shot-[place] [facility] PLAN OF CARE VITAL SIGNS MEDICATIONS Unknown Medications RESULTS No Results PROCEDURES Procedure Date Ordered Result Body Site FLUARIX QUAD (3 AND UP) 2017 Mar 11, 2017 SINGLE IMMUNIZATION ADMIN Mar 11, 2017 INSTRUCTIONS MEDICATIONS ADMINISTERED No Known Medications
--- OUTSIDE RECORDS SUMMARY | 2017-12-08 18:09 | XMS REPORT | Continuity of Care Document ---
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 (MRSA) screening culture - 09:00 Methicillin resistant Staphylococcus aureus (MRSA) screening culture NEG NRG Encounters ACCT No. Visit Date/Time Discharge Status Pt. Type Provider Facility Loc./Unit Complaint [id number] 08/07/2017 07:19:00 08/07/2017 12:00:00 DIS Outpatient MAXIMILIANO ULU DO Via [facility] RIGHT INGUINAL HERNIA [id number] 08/06/2017 09:01:00 08/06/2017 12:00:00 DIS Outpatient MAXIMILIANO LUU DO Via [facility] PREOP RIGHT INGUINAL HERNIA [id number] 07/31/2017 15:45:00 08/01/2017 17:51:00 DIS Inpatient MAXIMILIANO LUU DO Via [facility] 4TH SMALL BOWEL OBSTRUCTION, ABD PAIN [id number] 06/11/2017 00:34:00 06/11/2017 23:59:59 CLS Preadmit JAVIER GONZALEZ MD [facility] LAB ANEMIA [id number] 03/12/2017 13:16:00 06/10/2017 00:01:00 DIS Outpatient JAVIER GONZALEZ MD [facility] LAB ANEMIA [id number] 03/06/2017 09:56:00 03/06/2017 23:59:59 CLS Outpatient JAVIER GONZALEZ MD [facility] LAB K21.0 [id number] 03/03/2017 09:27:00 03/03/2017 23:59:59 CLS Outpatient YOUNG DRAKE [facility] LAB I70.0 I25.10 I65.23 Z78.9 [id number] 06/03/2016 10:11:00 06/03/2016 23:59:59 CLS Outpatient LISETH LESLIE MD [facility] ENDO GERD [id number] 05/30/2016 20:45:00 05/31/2016 13:00:00 DIS Inpatient JORDAN WHITE DO [facility] ICU CHEST PAIN;CAD [id number] 01/26/2016 08:12:00 01/26/2016 23:59:59 CLS Outpatient YOUNG DRAKE [facility] LAB CAD,CAROTID ARTERIAL DISEASE [id number] 11/06/2015 00:10:00 11/06/2015 23:59:59 CLS Preadmit VICTORINA AVERY DO Via [facility] DOG BITE [id number] 09/01/2015 08:20:00 11/05/2015 00:01:00 DIS Outpatient VICTORINA AVERY DO [facility] SDC DOG BITE [id number] 10/08/2015 19:04:00 10/09/2015 14:40:00 DIS Inpatient JAVIER GONZALEZ MD [facility] ICU ACUTE CVA [id number] 08/04/2015 20:05:00 08/04/2015 22:05:00 DIS Emergency VICTORINA AVERY DO [facility] ER DOG BITE [id number] 06/04/2015 01:59:00 06/05/2015 14:10:00 DIS Inpatient INDRA CARRASCO FACCREBECCA FACP CCDS [facility] ICU CHEST PAIN [id number] 01/26/2015 09:09:00 01/26/2015 23:59:59 CLS Outpatient YOUNG DRAKE [facility] LAB CAD, SCLEORIS [id number] 03/27/2013 09:18:00 03/27/2013 11:10:00 DIS Emergency VICTORINA AVERY DO [facility] ER NECK PAIN, RINGING IN EARS [id number] 04/17/2016 08:27:00 Document Registration [id number] 04/17/2016 08:27:00 Document Registration [id number] 04/17/2016 08:27:00 Document Registration [id number] 04/17/2016 08:27:00 Document Registration [id number] 11/26/2011 22:30:00 Document Registration [id number] 01/26/2011 17:03:00 Document Registration [id number] 12/25/2009 11:59:00 Document Registration [id number] 03/16/2009 13:39:00 Document Registration [id number] 01/30/2009 12:27:00 Document Registration [id number] 01/26/2009 08:27:00 Document Registration [id number] 11/04/2008 11:18:00 Document Registration [id number] 12/07/2007 09:32:00 Document Registration
--- NOTE | 2017-12-08 18:21 | ED Neurological Problem ---
General Chief Complaint: Neuro-Stroke Like Symptoms Stated Complaint: MEMORY ISSUES IN THE LAST HOUR Source: family (SON) Exam Limitations: other (PT CANNOT GIVE ANY RELEVANT INFORMATION) History of Present Illness Date Seen by Provider: Dec 08, 2017 Time Seen by Provider: 18:00 Initial Comments PT ARRIVES VIA POV WITH SON--SON GIVES ALL INFORMATION SON REPORTS THAT PT STARTED HAVING MEMORY PROBLEMS AROUND 1630 TODAY SON STATES THAT PT LIVES ALONE, AND STILL DRIVES PT DROVE SON TO WORK THIS AM AT 0800, THEN PT DROVE TO HIS ROUTINE/SCHEDULED APPOINTMENT WITH DR. GONZALEZ AT 0900 PT PICKED SON UP FROM WORK AT 1600, AND WAS STARTING TO MAKE SUPPER, AND SON STATES PT DID NOT KNOW WHO HE WAS AND DID NOT REMEMBER THAT HIS HAD VERY RECENTLY . PT HAS NOT HAD ANY SLURRED SPEECH, OR WEAKNESS ANYWHERE, OR PROBLEMS WALKING SON STATES THAT PT HAS COMPLAINED OF HEADACHE AND LATERAL NECK PAIN--PT DENIES ANY PAIN ANYWHERE TO ME SON STATES THAT PT TOLD HIM THAT HE HAD A HEADACHE AROUND 1400 TODAY AND HE TOOK AN IBUPROFEN. SONE STATES THAT PT HAS HAD THIS SAME THING HAPPEN SEVERAL TIMES, SON STATES " AT LEAST ONCE A YEAR" THIS HAPPENS, AND SON STATES 'THEN HE'S FINE IN A DAY OR TWO" PT IS NOT ON BLOOD THINNERS OR ASPIRIN PT HAS HAD PRIOR SUBDURAL HEMATOMA WITH SURGERY IN 2008--PT DOES NOT REMEMBER THIS AT ALL. SON RELATES THAT PT DOES NOT NORMALLY HAVE ANY PROBLEMS WITH MEMORY NO RECENT ILLNESS, FEVER, COUGH, NAUSEA/VOMITING, ETC. PCP: DR. GONZALEZ SOLE CEMENTER: DR. BURRELL Allergies and Home Medications Allergies Coded Allergies: Fzvqpyv-Kgt-Xpa Reductase Inhibitor (Verified Allergy, Mild, ELEVATED LIVER ENZYMES, 08/06/17) gemfibrozil (Verified Allergy, Mild, NAUSEA, 08/06/17) codeine (Verified Allergy, Unknown, 08/06/17) Home Medications Aspirin 81 Mg Tab.chew, 81 MG PO DAILY, (Reported) Docusate Sodium 100 Mg Capsule, 100 MG PO DAILY Prescribed by: MAXIMILIANO LUU on 08/07/17 1002 Famotidine 20 Mg Tablet, 20 MG PO BID, (Reported) Ferrous Sulfate 325 Mg Tablet, 325 MG PO DAILY, (Reported) Hydrocodone Bit/Acetaminophen 1 Tab Tab, 1 TAB PO Q4H PRN Prescribed by: MAXIMILIANO LUU on 08/07/17 1002 Levetiracetam 500 Mg Tablet, 500 MG PO DAILY, (Reported) Lisinopril 10 Mg Tablet, 5 MG PO DAILY, (Reported) TAKES 1/2 (10MG) TABLET Patient Home Medication List Home Medication List Reviewed: Yes Review of Systems Review of Systems Constitutional: no symptoms reported Ears, Nose, Mouth, Throat: no symptoms reported Respiratory: no symptoms reported Cardiovascular: no symptoms reported Gastrointestinal: no symptoms reported Genitourinary: no symptoms reported Musculoskeletal: see HPI Skin: no symptoms reported Psychiatric/Neurological: See HPI, Cognitive Dysfunction Endocrine: No Symptoms Reported Hematologic/Lymphatic: No Symptoms Reported Past Bvyyeqk-Hegiij-Zfdujm Hx Patient Social History Alcohol Use: Denies Use Recreational Drug Use: No Smoking Status: Never a Smoker Recent Foreign Travel: No Contact w/Someone Who Travel: No Recent Infectious Disease Expo: No Recent Hopitalizations: No Immunizations Up To Date Tetanus Booster (TDap): Unknown Date of Pneumonia Vaccine: Dec 30, 2015 Date of Influenza Vaccine: Jan 13, 2017 Seasonal Allergies Seasonal Allergies: No Past Medical History Surgeries: Yes (CARDIAC STENTS X 2 IN 2004; EVACUATION SUBDURAL HEMATOMA 2008 ; RIGHT INGUINAL HERNIA 08/07/17) Abdominal, Bowel Surgery, Cardiac, Coronary Stent, Neurological Respiratory: No Currently Using CPAP: No Currently Using BIPAP: No Cardiac: Yes (2 STENTS) Coronary Artery Disease, Heart Attack, Hypertension Neurological: Yes (SUBDURAL HEMATOMA 2008 WITH EVACUATION--REPORTEDLY SPONTANEOUS, WHILE ON ANTICOAGULANTS) Seizure Disorder, TIA Reproductive Disorders: No Sexually Transmitted Disease: No HIV/AIDS: No Genitourinary: No Gastrointestinal: Yes (RIGHT INGUINAL HERNIA AND BOWEL OBSTRUCTION 07/2017) Abdominal Hernia, Gastroesophageal Reflux, Obstructive Bowel Musculoskeletal: No Endocrine: No HEENT: Yes Loss of Vision: Denies Hearing Impairment: Hard of Hearing Cancer: No Psychosocial: No Integumentary: No Blood Disorders: No Adverse Reaction/Blood Tranf: No (HAS HAD BLOOD WITH NO REACTION) Family Medical History Unknown family medical history No Pertinent Family Hx, Hypertension Physical Exam Vital Signs Vital Signs - First Documented 12/08/17 17:58 Temp 98.4 Pulse 70 Resp 20 B/P (MAP) 162/82 (108) Pulse Ox 98 O2 Delivery Room Air Capillary Refill : Height, Weight, BMI Height: 6'0.00" Weight: 109lbs. 5.0oz. 49.992705cs; 14.8 BMI Method:Stated General Appearance: WD/WN, no apparent distress HEENT: PERRL/EOMI Neck: non-tender, full range of motion Respiratory: normal breath sounds, no respiratory distress, no accessory muscle use Cardiovascular: regular rate, rhythm, no edema, no JVD, no murmur Gastrointestinal: normal bowel sounds, non tender, soft Back: normal inspection Extremities: normal range of motion, non-tender, normal inspection, no pedal edema, no calf tenderness, normal capillary refill Neurologic/Psychiatric: machine folder II-XII nml as tested, no motor/sensory deficits, alert, other (FLAT AFFECT. PT NOT TALKING MUCH, PT NOT ABLE TO NAME OBJECTS IN PICTURES, PT NOT ABLE TO REPEAT WORDS OR PHRASES ON COMMAND, PT HAVING DIFFICULTY FOLLOWING SOME ( BUT NOT ALL) COMMANDS. SPEECH IS NOT SLURRED. STRENGTH APPEARS EQUAL IN ALL EXTREMITIES) Crainal Nerves: PERRL Motor/Sensory: no motor deficit, no sensory deficit, no pronator drift Skin: normal color, warm/dry Stroke Stroke Thrombolytic Exclusion Age 18 or Over: Yes History of CVA: No Severe Hypertension: No GI or Bleed: No Subarachnoid Hemorrhage: No Intracranial Neoplasm/Aneurysm: No Puncture of Non-Compressible V: No Recent CPR: No Diabetic Hemorrhagic Retinopat: No Organ Biopsy: No Recent Obstetric Delivery: No Significant Hepatic Dysfunctio: No NIH Stoke Scale >22: No Improving Symptoms: Yes Focused Exam Lactate Level 12/08/17 19:45: Lactic Acid Level 1.45 Lactic Acid Level Laboratory Tests Test 12/08/17 19:45 Lactic Acid Level 1.45 MMOL/L (0.50-2.00) Progress/Results/Core Measures Results/Orders Lab Results Laboratory Tests Test 12/08/17 18:08 12/08/17 18:22 12/08/17 19:45 Range/Units Glucometer 88 70-110 MG/DL White Blood Count 6.9 4.3-11.0 10^3/uL Red Blood Count 3.47 L 4.35-5.85 10^6/uL Hemoglobin 11.7 L 13.3-17.7 G/DL Hematocrit 36 L 40-54 % Mean Corpuscular Volume 102 H 80-99 FL Mean Corpuscular Hemoglobin 34 25-34 PG Mean Corpuscular Hemoglobin Concent 33 32-36 G/DL Red Cell Distribution Width 13.1 10.0-14.5 % Platelet Count 294 130-400 10^3/uL Mean Platelet Volume 8.8 7.4-10.4 FL Neutrophils (%) (Auto) 65 42-75 % Lymphocytes (%) (Auto) 22 12-44 % Monocytes (%) (Auto) 10 0-12 % Eosinophils (%) (Auto) 2 0-10 % Basophils (%) (Auto) 0 0-10 % Neutrophils # (Auto) 4.5 1.8-7.8 X 10^3 Lymphocytes # (Auto) 1.5 1.0-4.0 X 10^3 Monocytes # (Auto) 0.7 0.0-1.0 X 10^3 Eosinophils # (Auto) 0.2 0.0-0.3 10^3/uL Basophils # (Auto) 0.0 0.0-0.1 10^3/uL Prothrombin Time 13.9 12.2-14.7 SEC INR Comment 1.1 0.8-1.4 Activated Partial Thromboplast Time 29 24-35 SEC D-Dimer 0.36 0.00-0.49 UG/ML Sodium Level 130 L 135-145 MMOL/L Potassium Level 4.7 3.6-5.0 MMOL/L Chloride Level 97 L 98-107 MMOL/L Carbon Dioxide Level 26 21-32 MMOL/L Anion Gap 7 5-14 MMOL/L Blood Urea Nitrogen 9 7-18 MG/DL Creatinine 0.83 0.60-1.30 MG/DL Estimat Glomerular Filtration Rate > 60 BUN/Creatinine Ratio 11 Glucose Level 93 70-105 MG/DL Calcium Level 9.1 8.5-10.1 MG/DL Corrected Calcium 9.3 8.5-10.1 MG/DL Total Bilirubin 0.4 0.1-1.0 MG/DL Aspartate Amino Transf (AST/SGOT) 22 5-34 U/L Alanine Aminotransferase (ALT/SGPT) 21 0-55 U/L Alkaline Phosphatase 103 40-136 U/L Troponin I < 0.30 <0.30 NG/ML Total Protein 7.6 6.4-8.2 GM/DL Albumin 3.7 3.2-4.5 GM/DL Urine Color YELLOW Urine Clarity CLEAR Urine pH 6.5 5-9 Urine Specific [place] 1.005 L 1.016-1.022 Urine Protein NEGATIVE NEGATIVE Urine Glucose (UA) NEGATIVE NEGATIVE Urine Ketones NEGATIVE NEGATIVE Urine Nitrite NEGATIVE NEGATIVE Urine Bilirubin NEGATIVE NEGATIVE Urine Urobilinogen NORMAL NORMAL MG/DL Urine Leukocyte Esterase NEGATIVE NEGATIVE Urine RBC (Auto) NEGATIVE NEGATIVE Urine RBC NONE /HPF Urine WBC NONE /HPF Urine Squamous Epithelial Cells RARE /HPF Urine Crystals NONE /LPF Urine Bacteria NONE /HPF Urine Casts NONE /LPF Urine Mucus NEGATIVE /LPF Urine Culture Indicated NO Lactic Acid Level 1.45 0.50-2.00 MMOL/L My Orders Orders - VICTORINA AVERY DO Cbc With Automated Diff (12/08/17 18:) Protime With Inr (12/08/17 18:) Partial Thromboplastin Time (12/08/17:) Comprehensive Metabolic Panel (12/08/17) Fibrin Degradation Products (12/08/17:) Troponin I (12/08/17 18:) Ua Culture If Indicated (12/08/17 18:) Chest 1 View, Ap/Pa Only (12/08/17:) Ekg Tracing (12/08/17 18:) Nothing By Mouth (12/09/17 Breakfast) Accucheck Stat ONCE (12/08/17 18:) Saline Lock/Iv-Start (12/08/17 18:) Saline Lock/Iv-Start (12/08/17 18:) Vital Signs Stroke Patient Q15M (12/08/17 18:03) Ct Head Wo-R/O Stroke (12/08/17 18:) O2 (12/08/17 18:) Intake & Output 06,14,22 (12/08/17 18:) Monitor-Rhythm Ecg Trace Only (12/08/17 18:) Dysphagia Screening Tool (12/08/17 18:) Post Thrombolytic Adminstratio (12/08/17 18:) Lipid Panel (12/09/17 06:00) Ct Angio Head/Neck (12/08/17 18:36) Iohexol Injection (Omnipaque 350 Mg/Ml 1 (12/08/17 19:15) Ns (Ivpb) (Sodium Chloride 0.9%) (12/08/17 19:15) Saline Lock/Iv-Start (12/08/17 19:27) Ns Iv 1000 Ml (Sodium Chloride 0.9%) (12/08/17 19:27) Lactic Acid Analyzer (12/08/17 19:30) Blood Culture (12/08/17 19:30) Straight Cath For Spec.-Adult (12/08/17 19:30) Ceftriaxone For Iv Use (Rocephin For I (12/08/17 20:00) Medications Given in ED Current Medications Medications Dose Ordered Sig/Andrei Route Start Time Stop Time Status Last Admin Dose Admin Ceftriaxone Sodium 1000 mg/ Sodium Chloride 60 ml @ 100 mls/hr ONCE ONCE IV 12/08/17 20:00 12/08/17 20:35 DC 12/08/17 20:23 100 MLS/HR Iohexol 80 ml ONCE ONCE IV 12/08/17 19:15 12/08/17 19:16 DC 12/08/17 19:10 80 ML Sodium Chloride 250 ml ONCE ONCE IV 12/08/17 19:15 12/08/17 19:16 DC 12/08/17 19:10 80 ML Sodium Chloride 1,000 ml @ 0 mls/hr Q0M ONCE IV 12/08/17 19:27 12/08/17 19:29 DC 12/08/17 19:45 1,000 MLS/HR Vital Signs/I&O 12/08/17 17:58 Temp 98.4 Pulse 70 Resp 20 B/P (MAP) 162/82 (108) Pulse Ox 98 O2 Delivery Room Air Progress Progress Note : Progress Note UNEVENTFUL ER STAY PRIOR TO GOING TO THE FLOOR, PT FREELY STATES THAT HE WAS AT DR. GONZALEZ'S OFFICE THIS MORNING AND STATES THAT DR. GONZALEZ DIDN'T FIND ANY PROBLEMS PT WITH IMPROVEMENT IN MENTATION, MORE TALKATIVE AND ABLE TO FOLLOW COMMANDS BETTER Initial ECG Impression Date: Dec 08, 2017 Initial ECG Impression Time: 18:07 Initial ECG Rate: 67 Initial ECG Rhythm: Normal Sinus Initial ECG Impression: Nonspecific Changes Diagnostic Imaging Comments CXR--RLL INFILTRATE/ATELECTASIS CT HEAD--NO ACUTE PROCESS, BUT NEW HYPODENSE AREA COMPARED TO 2016, PER RADIOLOGIST REPORTS @ 1839 CT ANGIOGRAM HEAD/NECK--NO ACUTE PROCESS, NO THROMBUS. CHRONIC CHANGES, PER RADIOLOGIST REPORT AT 2009 Reviewed: Reviewed by Me Departure Communication (Admissions) 2009--ATTEMPTING TO CONTACT DR. CONSTANTINO, MESSAGE LEFT ON HOME PHONE 2019--SPOKE WITH DR. CONSTANTINO, ACCEPTS PT FOR ADMIT. Impression Primary Impression: Acute memory impairment Additional Impressions: POSSIBLE CVA VS TIA RIGHT BASILAR INFILTRATE Hyponatremia Disposition: ADMITTED INPATIENT Condition: Improved Admissions Decision to Admit Reason: Admit from ER (General) Decision to Admit/Date: Dec 08, 2017 Time/Decision to Admit Time: 20:10 Departure-Patient Inst. Referrals: JAVIER GONZALEZ MD (PCP/Family) Primary Care Physician VICTORINA AVERY DO Dec 08, 2017 18:20
[2017-12-08 18:31] LABS: BASOPHILS % (AUTO) 0 % (0-10); EOSINOPHILS # (AUTO) 0.2 10^3/uL (0.0-0.3); EOSINOPHILS % (AUTO) 2 % (0-10); HEMATOCRIT 36 % (40-54); HEMOGLOBIN 11.7 G/DL (13.3-17.7); LYMPHOCYTES # (AUTO) 1.5 X 10^3 (1.0-4.0); LYMPHOCYTES % (AUTO) 22 % (12-44); MEAN CORPUSCULAR HEMOGLOBIN 34 PG (25-34); MEAN CORPUSCULAR HGB CONC 33 G/DL (32-36); MEAN CORPUSCULAR VOLUME 102 FL (80-99); MEAN PLATELET VOLUME 8.8 FL (7.4-10.4); MONOCYTES # (AUTO) 0.7 X 10^3 (0.0-1.0); MONOCYTES % (AUTO) 10 % (0-12); NEUTROPHILS # (AUTO) 4.5 X 10^3 (1.8-7.8); NEUTROPHILS % (AUTO) 65 % (42-75); PLATELET COUNT 294 10^3/uL (130-400); RED BLOOD COUNT 3.47 10^6/uL (4.35-5.85); RED CELL DISTRIBUTION WIDTH 13.1 % (10.0-14.5); WHITE BLOOD COUNT 6.9 10^3/uL (4.3-11.0)
--- NOTE | 2017-12-08 18:33 | Diagnostic Imaging Report ---
EXAM: CT head without contrast. TECHNIQUE: Axial CT images of the head without contrast were obtained. DATE: December 08, 2017. COMPARISON: October 08, 2015. INDICATION: 77-year-old male, memory loss. Altered mental status. FINDINGS: There are left-sided craniotomy changes again noted. There is an area of low attenuation in the right insular white matter on axial image 13 which was not present previously and measures approximately 6 mm in size. The ventricles and cerebral spinal fluid spaces are of normal size and configuration for the patient's age. There is no mass effect or midline shift. There is no acute intracranial hemorrhage. There is no abnormal extra-axial fluid collection. The visualized portions of the paranasal sinuses, mastoid air cells and middle ears are well aerated. IMPRESSION: 1. 6 mm area of low attenuation in the right insular white matter which is not present on October 08, 2015. This potentially could relate to a small infarct although is entirely nonspecific. This is not CSF in attenuation and is age indeterminate. Recommend MRI brain for further assessment. Dictated by: Dictated on workstation # [id number]
[2017-12-08 18:43] LABS: FIBRIN DEGRADATION PRODUCTS 0.36 UG/ML (0.00-0.49); INR 1.1 (0.8-1.4); PROTHROMBIN TIME PATIENT 13.9 SEC (12.2-14.7)
[2017-12-08 18:50] LABS: ALANINE AMINOTRANSFERASE 21 U/L (0-55); ALBUMIN 3.7 GM/DL (3.2-4.5); ALKALINE PHOSPHATASE 103 U/L (40-136); BILIRUBIN,TOTAL 0.4 MG/DL (0.1-1.0); BUN/CREATININE RATIO 11; CALCIUM 9.1 MG/DL (8.5-10.1); CARBON DIOXIDE 26 MMOL/L (21-32); CHLORIDE 97 MMOL/L (98-107); CREATININE SERUM 0.83 MG/DL (0.60-1.30); GFR ESTIMATED > 60; GLUCOSE 93 MG/DL (70-105); POTASSIUM 4.7 MMOL/L (3.6-5.0); SODIUM 130 MMOL/L (135-145); TOTAL PROTEIN 7.6 GM/DL (6.4-8.2)
--- NOTE | 2017-12-08 19:02 | Diagnostic Imaging Report ---
INDICATION: Stroke. COMPARISON: July 31, 2017 TECHNIQUE: Single radiograph of the chest dated December 08, 2017. FINDINGS: The cardiac silhouette is within normal limits in size. No significant pulmonary vascular congestion. Slightly increased right basilar opacities. Calcified granuloma within the left lung base. The lungs otherwise appear clear. No significant pleural effusion. No pneumothorax. No acute osseous abnormality. IMPRESSION: 1. Minimal right basilar atelectasis and/or pneumonitis. 2. Otherwise, similar exam. Dictated by: Dictated on workstation # [id number]
[2017-12-08] MEDS ORDERED: NS 250 ML (IVPB) BAG IV ONE (19:15)
[2017-12-08] MEDS ORDERED: IOHEXOL 350 MG/ML 100 ML (OMNIPAQUE 350) VIAL IV ONE (19:15)
[2017-12-08] MEDS ORDERED: NS IV 1000 ML 1,000 ML IV ONE (19:27)
--- NOTE | 2017-12-08 19:48 | Diagnostic Imaging Report ---
PROCEDURE: CT angiography of the head and CT angiography of the neck with and without contrast. TECHNIQUE: Contiguous noncontrast images were obtained from the skull base through the vertex. After intravenous contrast administration, helical CT angiography of the neck was performed. Source data was reformatted into multiple MIP projections. Delayed post contrast acquisition was also obtained. INDICATION: Memory loss, questionable stroke COMPARISON: CT of the head from same date. FINDINGS: No midline shift, herniation, hydrocephalus, or extra-axial fluid collection. No enhancing intracranial mass. The orbits are unremarkable. Left-sided craniotomy changes are again identified. The paranasal sinuses are clear. No acute calvarial abnormality. Muscles of mastication are unremarkable. The salivary glands are unremarkable. The airway is patent. Epiglottis and aryepiglottic folds are unremarkable. The thyroid gland is unremarkable. Mild emphysematous changes within the lung apices. No apical pneumothorax. Scattered osseous degenerative changes without acute osseous abnormality. Scattered facet joint degenerative changes and uncovertebral joint hypertrophy noted throughout the cervical spine. Three-vessel aortic arch is present. Right A1 segment is not visualized, which is associated with a dominant left A1 segment. Dominant left vertebral artery with the right vertebral artery terminating in PICA. origin of the right posterior cerebral artery. Otherwise, the large arterial structures of the head and neck are unremarkable. Dural venous sinuses appear patent. However, the left transverse sinus is diminutive. The left jugular vein is diminutive and nonopacified, particularly superiorly. IMPRESSION: 1. Congenital anatomic variants associated with the [place] as described above without evidence of occlusion, hemodynamically significant stenosis, or aneurysm associated with the large arterial structures of the head and neck. Diminutive and not opacified left jugular vein. 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 Postsurgical changes associated with the left calvarium. Additional findings as above. Dictated by: Dictated on workstation # [id number]
[2017-12-08] MEDS ORDERED: cefTRIAXone FOR IV USE 1,000 MG in NS (IVPB) 50 ML IV ONE (20:00)
[2017-12-08 20:04] LABS: BILIRUBIN,URINE NEGATIVE (NEGATIVE); CLARITY,URINE CLEAR; COLOR,URINE YELLOW; GLUCOSE, URINE (UA) NEGATIVE (NEGATIVE); KETONES,URINE NEGATIVE (NEGATIVE); LEUKOCYTE ESTERASE ,URINE NEGATIVE (NEGATIVE); NITRITE,URINE NEGATIVE (NEGATIVE); PH,URINE 6.5 (5-9); PROTEIN,URINE NEGATIVE (NEGATIVE); UROBILINOGEN,URINE NORMAL (NORMAL)
[2017-12-08 20:12] LABS: SQUAMOUS EPITHELIAL CELL,UR RARE /HPF
[2017-12-08 21:55] VITALS: BP 144/68
[2017-12-08 22:55] VITALS: BP 149/73
[2017-12-08] MEDS ORDERED: AZITHROMYCIN INJECTION 500 MG in NS (IVPB) 250 ML IV SCH (23:00)
[2017-12-08 23:12] VITALS: BP 144/68
[2017-12-08] MEDS ORDERED: RT-ALBUTEROL SULF 2.5 MG/3 ML PRE-MIX VIAL INH PRN (23:30)
[2017-12-08] MEDS: NS IV 1000 ML 1,000 ML IV SCH (23:44)
[2017-12-09 00:10] VITALS: BP 159/81
[2017-12-09 04:45] VITALS: BP 162/77
[2017-12-09 05:49] LABS: BASOPHILS % (AUTO) 0 % (0-10); EOSINOPHILS # (AUTO) 0.1 10^3/uL (0.0-0.3); EOSINOPHILS % (AUTO) 1 % (0-10); HEMATOCRIT 38 % (40-54); HEMOGLOBIN 12.6 G/DL (13.3-17.7); LYMPHOCYTES % (AUTO) 13 % (12-44); MEAN CORPUSCULAR HEMOGLOBIN 34 PG (25-34); MEAN CORPUSCULAR HGB CONC 33 G/DL (32-36); MEAN CORPUSCULAR VOLUME 102 FL (80-99); MEAN PLATELET VOLUME 9.1 FL (7.4-10.4); MONOCYTES # (AUTO) 0.5 X 10^3 (0.0-1.0); MONOCYTES % (AUTO) 7 % (0-12); NEUTROPHILS # (AUTO) 5.8 X 10^3 (1.8-7.8); NEUTROPHILS % (AUTO) 78 % (42-75); PLATELET COUNT 310 10^3/uL (130-400); RED BLOOD COUNT 3.71 10^6/uL (4.35-5.85); RED CELL DISTRIBUTION WIDTH 13.2 % (10.0-14.5); WHITE BLOOD COUNT 7.4 10^3/uL (4.3-11.0)
[2017-12-09 06:10] LABS: ALANINE AMINOTRANSFERASE 21 U/L (0-55); ALBUMIN 3.6 GM/DL (3.2-4.5); ALKALINE PHOSPHATASE 109 U/L (40-136); BILIRUBIN,TOTAL 0.3 MG/DL (0.1-1.0); BUN/CREATININE RATIO 11; CALCIUM 9.3 MG/DL (8.5-10.1); CARBON DIOXIDE 24 MMOL/L (21-32); CHLORIDE 107 MMOL/L (98-107); CHOLESTEROL 172 MG/DL (< 200); CREATININE SERUM 0.82 MG/DL (0.60-1.30); GFR ESTIMATED > 60; GLUCOSE 100 MG/DL (70-105); HDL CHOLESTEROL 35 MG/DL (40-60); SODIUM 140 MMOL/L (135-145); TOTAL PROTEIN 7.1 GM/DL (6.4-8.2); TRIGLYCERIDES 89 MG/DL (<150); VLDL CHOLESTEROL 18 MG/DL (5-40)
[2017-12-09 08:00] VITALS: BP 128/70
[2017-12-09] MEDS ORDERED: RT-ALBUTEROL SULF 2.5 MG/3 ML PRE-MIX VIAL INH SCH (08:00)
[2017-12-09] MEDS: NS IV 1000 ML 1,000 ML IV SCH (10:33)
[2017-12-09 12:00] VITALS: BP 140/76
--- NOTE | 2017-12-09 13:23 | History & Physical-Hospitalist ---
History of Present Illness HPI/Chief Complaint The patient is a 77-year-old white male. He is known to me from his 's terminal illness earlier this year. He was brought to the emergency room last evening by his son who found him to be quite confused which he stated was an unusual event. Apparently the patient had driven his son to work at 0800 yesterday. He then went to a scheduled appointment at Dr. Morrison's office at 0900. He then came to flower picker his son at 1600 hours. He was then found some 3 hours later confused. He had attempted to finish preparing his evening meal and did not do so. He was worked up for a stroke without any findings. His was here earlier this year in her terminal illness. She had a widely metastatic breast cancer which had been diagnosed in 2004. When he came to see her he stated that she did not have cancer and that they had never been to the cancer center despite regularly logged visits since 2004. His confusion therefore does not seem unusual to me. Source: patient Date Seen 12/09/17 Time Seen by Provider: 13:17 Attending Physician Ambrose Constantino MD PCP Jose Antonio Morrison MD Referring Physician Date of Admission Dec 08, 2017 at 20:10 Home Medications & Allergies Home Medications Reviewed patient Home Medication Reconciliation performed by pharmacy medication reconciliations data communications technician and/or nursing. Patients Allergies have been reviewed. Allergies Allergies Coded Allergies Nipkaqn-Phh-Rxx Reductase Inhibitor (Verified Allergy, Mild, ELEVATED LIVER ENZYMES, 08/06/17) gemfibrozil (Verified Allergy, Mild, NAUSEA, 08/06/17) codeine (Verified Allergy, Unknown, 08/06/17) Past Rsomdlw-Vrexcz-Mflgpb Hx Past Med/Social Hx: Reviewed Nursing Past Med/Soc Hx Patient Social History Marrital Status: Alcohol Use: Denies Use Recreational Drug Use: No Smoking Status: Never a Smoker Physical Abuse Screen: No Sexual Abuse: No Recent Foreign Travel: No Contact w/other who traveled: No Recent Hopitalizations: No Recent Infectious Disease Expo: No Immunizations Up To Date Tetanus Booster (TDap): Unknown Date of Pneumonia Vaccine: Mar 30, 2017 Date of Influenza Vaccine: Jan 13, 2017 Seasonal Allergies Seasonal Allergies: No Past Medical History Surgeries: Abdominal, Bowel Surgery, Cardiac, Coronary Stent, Neurological Currently Using CPAP: No Currently Using BIPAP: No Cardiac: Coronary Artery Disease, Heart Attack, Hypertension Neurological: Seizure Disorder, TIA Reproductive: No Sexually Transmitted Disease: No HIV/AIDS: No Gastrointestinal: Abdominal Hernia, Gastroesophageal Reflux, Obstructive Bowel Loss of Vision: Denies Hearing Impairment: Hard of Hearing History of Blood Disorders: No Adverse Reaction to Blood Barney: No (HAS HAD BLOOD WITH NO REACTION) Family History Unknown family medical history No Pertinent Family Hx, Hypertension Review of Systems Constitutional: see HPI EENTM: no symptoms reported Respiratory: no symptoms reported Cardiovascular: no symptoms reported Gastrointestinal: no symptoms reported Genitourinary: no symptoms reported Musculoskeletal: no symptoms reported Skin: no symptoms reported Psychiatric/Neurological: No Symptoms Reported Physical Exam Physical Exam Vital Signs Vital Signs - First Documented 12/08/17 12/08/17 17:58 20:55 Temp 98.4 Pulse 70 Resp 20 B/P (MAP) 162/82 (108) Pulse Ox 98 O2 Delivery Room Air O2 Flow Rate 2.00 Capillary Refill : Less Than 3 Seconds Height, Weight, BMI Height: 6'0.00" Weight: 107lbs. 0.0oz. 48.515065zp; 14.5 BMI Method:Stated General Appearance: Other (he is alert and pleasant this morning. He speaks in platitudes) HEENT: Normal ENT Inspection Neck: Full Range of Motion, Normal Inspection Respiratory: Chest Non Tender, Lungs Clear, Normal Breath Sounds, No Accessory Muscle Use, No Respiratory Distress Cardiovascular: Regular Rate, Rhythm, No Edema, No Gallop, No JVD, No Murmur, Normal Peripheral Pulses Gastrointestinal: Other (abdomen is scaphoid but nontender) Back: Normal Inspection Extremity: Normal Capillary Refill, Normal Inspection, Normal Range of Motion, Non Tender, No Calf Tenderness, No Pedal Edema Neurologic/Psychiatric: Alert, Oriented x3, No Motor/Sensory Deficits Skin: Normal Color, Warm/Dry Lymphatic: No Adenopathy Results Results/Procedures Labs Laboratory Tests 12/08/17 18:22 12/09/17 05:10 Patient resulted labs reviewed. Assessment/Plan Admission Diagnosis Intermittent memory loss/early dementia Admission Status: Observation Assessment and Plan Discharged to home Clinical Quality Measures DVT/VTE Risk/Contraindication: Risk Factor Score Per Nursin RFS Level Per Nursing on Admit: 3=High Stroke: Date of last known well: Dec 08, 2017 AMBROSE CONSTANTINO MD Dec 09, 2017 13:23
--- NOTE | 2017-12-09 13:32 | Discharge Instructions ---
Discharge Instructions Patient Instructions Patient Instructions: Resume medications as listed in the discharge sequence. Resume diet and activities as before NAIDA CONSTANTINO MD Dec 09, 2017 13:32
[2017-12-09 14:55] VITALS: BP 140/76
[2017-12-09] MEDS ORDERED: cefTRIAXone FOR IV USE 1,000 MG in NS (IVPB) 50 ML IV SCH (20:00)
[2017-12-09] MEDS ORDERED: AZITHROMYCIN 250 MG TAB (ZITHROMAX) PO SCH (21:00)
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
--- NOTE | 2017-12-12 12:46 | Physician Query-Final Dx ---
AVA GANDHI 12/12/17 1246: Final Diagnosis Give Final Diagnosis Please give Final Diagnosis MICHAEL HSIEH 01/01/18 0803: AVA GANDHI Dec 12, 2017 12:46 MICHAEL HSIEH Jan 01, 2018 08:03
--- NOTE | 2017-12-31 13:55 | Short Stay Summary-Hospitalist ---
Short Stay Diagnosis D/C Date Dec 09, 2017 at 15:10 Transient increase in confusion. 2.mild to moderate dementia Clinical Quality Measures DVT/VTE Risk/Contraindication: Risk Factor Score Per Nursin RFS Level Per Nursing on Admit: 3=High Stroke: Date of last known well: Dec 08, 2017 NAIDA CONSTANTINO MD Dec 31, 2017 13:55
== END 2017-12-09 15:10 | disposition home or self-care (01) | DRG 884 ==
LOC: EDUNIT# 17:52 → ER 17:53 → 4TH 20:10 → UNDOADMOB 20:10 → UNDODISOB 12-09 15:10
PROVIDERS: ADMIT Internal Medicine; ATTEND Internal Medicine
DX: F03.90 Unspecified dementia, unspecified severity, without behavioral disturbance, psychotic disturbance, mood disturbance, and anxiety (principal); R41.0 Disorientation, unspecified; E87.1 Hypo-osmolality and hyponatremia; R91.8 Other nonspecific abnormal finding of lung field; I25.10 Atherosclerotic heart disease of native coronary artery without angina pectoris; I10 Essential (primary) hypertension; G40.909 Epilepsy, unspecified, not intractable, without status epilepticus; K21.9 Gastro-esophageal reflux disease without esophagitis; I25.2 Old myocardial infarction; Z86.73 Personal history of transient ischemic attack (TIA), and cerebral infarction without residual deficits; Z79.82 Long term (current) use of aspirin; Z79.899 Other long term (current) drug therapy; Z95.5 Presence of coronary angioplasty implant and graft
CPT/HCPCS: 36415; 70450; 70496; 70498; 71045; 80053; 80061; 81000; 82962; 83605; 84145; 84484; 85025; 85379; 85610; 85730; 87040; 93005; 93041; 94640; 94760; 96361; 96365

== ENCOUNTER → 2017-12-15 | Outpatient (CLI) | payer MEDICARE ==
--- NOTE | 2017-12-15 12:37 | Diagnostic Imaging Report ---
INDICATION: Pneumonia COMPARISON: 12/08/2017 FINDINGS: Frontal and lateral views of the chest demonstrate normal heart size and pulmonary vascularity. The lungs are clear. There are no signs of infiltrate, pleural effusions or pneumothoraces. The visualized osseous structures show no acute abnormalities. IMPRESSION: 1. No acute process. No signs of infiltrates, effusions or pneumothoraces. Dictated by: Dictated on workstation # [id number]
== END ==
LOC: RAD 10:08
PROVIDERS: ATTEND Internal Medicine
DX: J18.9 Pneumonia, unspecified organism (principal)
CPT/HCPCS: 71046

== ENCOUNTER 2017-12-19 17:25 | Emergency (ER) | payer MEDICARE ==
[~2017-12-19] VITALS: Ht 182.9 cm; Wt 48.5 kg
--- OUTSIDE RECORDS SUMMARY | 2017-12-19 17:31 | XMS REPORT | Continuity of Care Document ---
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 plasma protein measurement (mass/volume) 7.1 g/dL 6.4-8.2 Serum or plasma albumin measurement (mass/volume) 3.6 g/dL 3.2-4.5 CALCIUM CORRECTED 9.6 mg/dL 8.5-10.1 Lipid 1996 panel - 12/09/17 05:10 Serum or plasma triglyceride measurement (mass/volume) 89 mg/dL <150 Serum or plasma cholesterol measurement (mass/volume) 172 mg/dL < 200 Serum or plasma cholesterol in HDL measurement (mass/volume) 35 mg/ dL 40-60 Cholesterol in LDL [mass/volume] in serum or plasma by direct assay 126 mg/dL 1-129 Serum or plasma cholesterol in VLDL measurement (mass/volume) 18 mg/ dL 5-40 Encounters ACCT No. Visit Date/Time Discharge Status Pt. Type Provider Facility Loc./Unit Complaint [id number] 12/15/2017 10:08:00 12/15/2017 23:59:59 CLS Outpatient JAVIER GONZALEZ MD [facility] RAD PNEUMONIA [id number] 12/08/2017 20:10:00 12/09/2017 15:10:00 DIS Inpatient NAIDA CONSTANTINO MD [facility] 4TH ACUTE CONFUSION,RLL PNEUMONIA,HYPONATRMIA POSS CVA [id number] 12/08/2017 10:04:00 12/08/2017 23:59:59 CLS Preadmit JAVIER GONZALEZ MD [facility] RAD RULMONARY NODULES [id number] 08/07/2017 07:19:00 08/07/2017 12:00:00 DIS Outpatient MAXIMILIANO LUU DO [facility] SDC RIGHT INGUINAL HERNIA [id number] 08/06/2017 09:01:00 08/06/2017 12:00:00 DIS Outpatient MAXIMILIANO LUU DO [facility] PREOP RIGHT INGUINAL HERNIA [id number] 07/31/2017 15:45:00 08/01/2017 17:51:00 DIS Inpatient MAXIMILIANO LUU DO [facility] 4TH SMALL BOWEL OBSTRUCTION, ABD PAIN [id number] 06/11/2017 00:34:00 06/11/2017 23:59:59 CLS Preadmit JAVIER GONZALEZ MD [facility] LAB ANEMIA [id number] 03/12/2017 13:16:00 06/10/2017 00:01:00 DIS Outpatient JAVIER GONZALEZ MD [facility] LAB ANEMIA [id number] 03/06/2017 09:56:00 03/06/2017 23:59:59 CLS Outpatient JAVIER GONZALEZ MD [facility] LAB K21.0 [id number] 03/03/2017 09:27:00 03/03/2017 23:59:59 CLS Outpatient YOUNG DRAKE [facility] LAB I70.0 I25.10 I65.23 Z78.9 [id number] 06/03/2016 10:11:00 06/03/2016 23:59:59 CLS Outpatient LISETH LESLIE MD [facility] ENDO GERD [id number] 05/30/2016 20:45:00 05/31/2016 13:00:00 DIS Inpatient JORDAN WHITE DO [facility] ICU CHEST PAIN;CAD [id number] 01/26/2016 08:12:00 01/26/2016 23:59:59 CLS Outpatient YOUNG DRAKE [facility] LAB CAD,CAROTID ARTERIAL DISEASE [id number] 11/06/2015 00:10:00 11/06/2015 23:59:59 CLS Preadmit VICTORINA AVERY DO [facility] DOG BITE [id number] 09/01/2015 08:20:00 11/05/2015 00:01:00 DIS Outpatient VICTORINA AVERY DO [facility] DOG BITE [id number] 10/08/2015 19:04:00 10/09/2015 14:40:00 DIS Inpatient JAVIER GONZALEZ MD [facility] ICU ACUTE CVA [id number] 08/04/2015 20:05:00 08/04/2015 22:05:00 DIS Emergency VICTORINA AVERY DO [facility] ER DOG BITE [id number] 06/04/2015 01:59:00 06/05/2015 14:10:00 DIS Inpatient INDRA CARRASCO FACC, REBECCA SPANN CCDS [facility] ICU CHEST PAIN [id number] 01/26/2015 09:09:00 01/26/2015 23:59:59 CLS Outpatient YOUNG DRAKE [facility] LAB CAD, SCLEORIS [id number] 03/27/2013 09:18:00 03/27/2013 11:10:00 DIS Emergency GENA VICTORINA MARTINEZ [facility] ER NECK PAIN, RINGING IN EARS [id number] 04/17/2016 08:27:00 Document Registration [id number] 04/17/2016 08:27:00 Document Registration [id number] 04/17/2016 08:27:00 Document Registration [id number] 04/17/2016 08:27:00 Document Registration [id number] 11/26/2011 22:30:00 Document Registration [id number] 01/26/2011 17:03:00 Document Registration [id number] 12/25/2009 11:59:00 Document Registration [id number] 03/16/2009 13:39:00 Document Registration [id number] 01/30/2009 12:27:00 Document Registration [id number] 01/26/2009 08:27:00 Document Registration [id number] 11/04/2008 11:18:00 Document Registration [id number] 12/07/2007 09:32:00 Document Registration
[2017-12-19] MEDS ORDERED: DEXAMETHASONE PF 10 MG/ML (DECADRON) VIAL IM STA (18:40)
--- NOTE | 2017-12-19 18:48 | ED EENT ---
History of Present Illness General Chief Complaint: Oral/Throat Problems Stated Complaint: THROAT/TONGUE PAIN Nursing Triage Note: PT PRESENTS TO ER WITH COMPLAINT OF SORE TONGUE. STATES HE WAS TAKING A BITE OF [employer] AND HIS TONGUE STARTED TO BURN. STATES THE FOOD COULD OF BEEN HOT. TONGUE HAS HURT EVER SINCE. Source: patient Exam Limitations: no limitations History of Present Illness Date Seen by Provider: Dec 19, 2017 Time Seen by Provider: 18:30 Initial Comments Here with report of sore tongue. States that he's had cold symptoms for a couple days and has dry mouth. He is eating chicken and gravy tonight and felt like the grave he was hot but didn't feel like it burned him. Noted that everything was burning around that time and even [employer] was causing his mouth burn. Admits to sore throat and dry mouth as his cold symptoms. He is in the hospital last week and was thought to potentially have pneumonia and was on antibiotics for 3 days. He's been off that since last week. Denies shortness of breath. He is able to drink water without difficulty. Timing/Duration: abrupt Severity: moderate Location: mouth Prearrival Treatment: no prearrival treatment Associated Symptoms: No cough, No fever; sore throat Allergies and Home Medications Allergies Coded Allergies: Jdrhrpn-Eus-Mds Reductase Inhibitor (Verified Allergy, Mild, ELEVATED LIVER ENZYMES, 08/06/17) gemfibrozil (Verified Allergy, Mild, NAUSEA, 08/06/17) codeine (Verified Allergy, Unknown, 08/06/17) Home Medications Aspirin 81 Mg Tab.chew, 81 MG PO Q48H, (Reported) Famotidine 20 Mg Tablet, 20 MG PO DAILY, (Reported) Ferrous Sulfate 325 Mg Tablet, 325 MG PO DAILY, (Reported) Levetiracetam 500 Mg Tablet, 500 MG PO DAILY, (Reported) Lisinopril 10 Mg Tablet, 5 MG PO DAILY, (Reported) TAKES 1/2 (10MG) TABLET Patient Home Medication List Home Medication List Reviewed: Yes Review of Systems Review of Systems Constitutional: see HPI; No chills, No fever Eyes: No Symptoms Reported Ears: No Symptoms Reported Nose: denies pain; clear discharge Mouth: see HPI, pain; denies swelling, denies purulent discharge Throat: see HPI, pain; denies hoarse, denies painful swallowing Respiratory: No cough, No short of breath Gastrointestinal: no symptoms reported Past Jbuusyj-Tmzqdd-Omxojd Hx Past Med/Social Hx: Reviewed Nursing Past Med/Soc Hx Patient Social History Alcohol Use: Denies Use Recreational Drug Use: No Recent Foreign Travel: No Contact w/Someone Who Travel: No Recent Infectious Disease Expo: No Recent Hopitalizations: No Immunizations Up To Date Tetanus Booster (TDap): Unknown Date of Pneumonia Vaccine: Mar 30, 2017 Date of Influenza Vaccine: Jan 13, 2017 Seasonal Allergies Seasonal Allergies: No Past Medical History Surgeries: Yes Abdominal, Bowel Surgery, Cardiac, Coronary Stent, Neurological Respiratory: No Currently Using CPAP: No Currently Using BIPAP: No Cardiac: Yes (2 STENTS) Coronary Artery Disease, Heart Attack, Hypertension Neurological: Yes Seizure Disorder, TIA Reproductive Disorders: No Sexually Transmitted Disease: No HIV/AIDS: No Genitourinary: No Gastrointestinal: Yes (RIGHT INGUINAL HERNIA AND BOWEL OBSTRUCTION 07/2017) Abdominal Hernia, Gastroesophageal Reflux, Obstructive Bowel Musculoskeletal: No Endocrine: No HEENT: Yes Loss of Vision: Denies Hearing Impairment: Hard of Hearing Cancer: No Psychosocial: No Integumentary: No Blood Disorders: No Adverse Reaction/Blood Tranf: No (HAS HAD BLOOD WITH NO REACTION) Family Medical History Reviewed Nursing Family Hx Unknown family medical history No Pertinent Family Hx, Hypertension Physical Exam Vital Signs Vital Signs - First Documented 12/19/17 18:17 Temp 96.4 Pulse 80 Resp 20 B/P (MAP) 128/80 (96) Pulse Ox 97 O2 Delivery Room Air Height, Weight, BMI Height: 6'0.00" Weight: 107lbs. 0.0oz. 48.282439hi; 14.5 BMI Method:Stated General Appearance: WD/WN, no apparent distress Nose: other (clear rhinorrhea and mild erythema bilateral) Mouth/Throat: pharynx tenderness; No uvula swelling; other (eyjd-ye-vxkyoamy erythema over the soft palate, pharynx and tongue without exudate) Neck: full range of motion, supple Cardiovascular: regular rate, rhythm, no murmur Respiratory: lungs clear, normal breath sounds Neurologic/Psychiatric: alert, oriented x 3 Skin: normal color, warm/dry Progress/Results/Core Measures Results/Orders My Orders Orders - NAVEED TAI MD Decadron 10 Mg Im (12/19/17 18:40) Vital Signs/I&O 12/19/17 18:17 Temp 96.4 Pulse 80 Resp 20 B/P (MAP) 128/80 (96) Pulse Ox 97 O2 Delivery Room Air Blood Pressure Mean: 96 Progress Progress Note : Progress Note Seen and evaluated. Decadron 10 mg IM for viral pharyngitis. Discharged home with return precautions. Patient verbalize understanding instructions and agreement with plan. Departure Impression Primary Impression: Acute viral pharyngitis Disposition: HOME, SELF-CARE Condition: Stable Departure-Patient Inst. Decision time for Depature: 18:48 Referrals: JAVIER GONZALEZ MD (PCP/Family) Primary Care Physician Patient Instructions: Viral Pharyngitis (DC) Add. Discharge Instructions: All discharge instructions reviewed with patient and/or family. Voiced understanding. You may continue Tylenol/acetaminophen as needed for pain. Do not eat or drink hot or acidic foods or fluids for the next few days. Follow-up with her doctor in a few days for recheck. Return for worse pain, fever, vomiting, breathing problems, swallowing problems or other concerns as needed. NAVEED TAI MD Dec 19, 2017 18:48
[2017-12-19 18:54] VITALS: BP 128/80
== END 2017-12-19 18:54 | disposition home or self-care (01) ==
LOC: EDUNIT# 17:25 → ER 17:26
DX: J02.9 Acute pharyngitis, unspecified (principal); I25.10 Atherosclerotic heart disease of native coronary artery without angina pectoris; I25.2 Old myocardial infarction; I10 Essential (primary) hypertension; G40.909 Epilepsy, unspecified, not intractable, without status epilepticus; K21.9 Gastro-esophageal reflux disease without esophagitis; Z87.19 Personal history of other diseases of the digestive system; Z86.73 Personal history of transient ischemic attack (TIA), and cerebral infarction without residual deficits; Z88.8 Allergy status to other drugs, medicaments and biological substances; Z88.5 Allergy status to narcotic agent; Z79.82 Long term (current) use of aspirin; Z95.5 Presence of coronary angioplasty implant and graft
CPT/HCPCS: 96372; 99284

== ENCOUNTER → 2017-12-22 | Outpatient (CLI) | payer MEDICARE, OTHER ==
[~2017-12-22] MED LIST changes: +IOHEXOL 350 MG/ML 100 ML (OMNIPAQUE 350) VIAL IV ONE; +NS 250 ML (IVPB) BAG IV ONE
--- NOTE | 2017-12-22 09:46 | Diagnostic Imaging Report ---
PROCEDURE: CT chest with contrast only. TECHNIQUE: Multiple contiguous axial images were obtained through the chest after administration of intravenous contrast. INDICATION: Pulmonary nodule. Comparison made with prior examination 07/31/2017. FINDINGS: There is an unchanged 9 mm nodular density in the right lower lobe. There is a 5 mm subpleural nodule in the posterior medial aspect of the right lower lobe. There is minimal scarring or atelectasis in the left lung base. There is also calcified granuloma in the left lung base. The thoracic aorta is normal in caliber without evidence of dissection. There is no pathologically enlarged adenopathy the chest. There is no pneumothorax. The visualized intra-abdominal structures are unremarkable. There are degenerative changes in the spine. IMPRESSION: Stable 9 mm noncalcified nodular density in the right lower lobe. There is an additional 5 mm subpleural nodule as well. Additional six-month followup is recommended to ensure stability. Minimal scarring or atelectasis in the left lung base. Dictated by: Dictated on workstation # [id number]
== END ==
LOC: RAD 08:18
PROVIDERS: ATTEND Internal Medicine
DX: J98.4 Other disorders of lung (principal); R91.1 Solitary pulmonary nodule
CPT/HCPCS: 71260

== ENCOUNTER 2018-02-28 12:35 | Emergency (ER) | payer MEDICARE, OTHER ==
[~2018-02-28] VITALS: Ht 170.2 cm; Wt 49.0 kg
[~2018-02-28 12:35] MED LIST changes: -IOHEXOL 350 MG/ML 100 ML (OMNIPAQUE 350) VIAL IV ONE; -NS 250 ML (IVPB) BAG IV ONE
--- NOTE | 2018-02-28 13:01 | ED Neck-Back Pain/Injury ---
General Chief Complaint: Head/Cervical Problems Stated Complaint: NECK PAIN/WEAKNESS Source of Information: Patient Exam Limitations: No Limitations History of Present Illness Date Seen by Provider: Feb 28, 2018 Time Seen by Provider: 12:56 Initial Comments This 78-year-old white male presents with a history of paroxysmal left-sided neck pain began approximately an hour prior to presentation to the emergency department. Upon arrival in the emergency department and after the patient was placed in the bed he related that his neck pain had spontaneously abated. Patient denied associated headache, photophobia, fever or chills, palpitations or chest pain, shortness of breath or productive cough, associated nausea vomiting or diarrhea, lateralizing or localizing neurologic complaints. The patient is a poor historian. He states that he takes daily medications but is unable to recall the names of the medicines or the reason for taking them. The patient at this time states that he is completely asymptomatic. Allergies and Home Medications Allergies Coded Allergies: Wtpgips-Wch-Elx Reductase Inhibitor (Verified Allergy, Mild, ELEVATED LIVER ENZYMES, 08/06/17) gemfibrozil (Verified Allergy, Mild, NAUSEA, 08/06/17) codeine (Verified Allergy, Unknown, 08/06/17) Home Medications Aspirin 81 Mg Tab.chew, 81 MG PO Q48H, (Reported) Famotidine 20 Mg Tablet, 20 MG PO DAILY, (Reported) Ferrous Sulfate 325 Mg Tablet, 325 MG PO DAILY, (Reported) Levetiracetam 500 Mg Tablet, 500 MG PO DAILY, (Reported) Lisinopril 10 Mg Tablet, 5 MG PO DAILY, (Reported) TAKES 1/2 (10MG) TABLET Patient Home Medication List Home Medication List Reviewed: Yes Review of Systems Constitutional: No chills, No fever EENTM: other (left-sided neck pain, self-limited.); No hearing loss, No vision loss Respiratory: No cough, No short of breath Cardiovascular: No chest pain Gastrointestinal: No abdominal pain, No diarrhea, No nausea, No vomiting Genitourinary: No dysuria, No frequency Musculoskeletal: No back pain; neck pain Skin: No change in color, No rash Psychiatric/Neurological: No Symptoms Reported Past Rjqxbue-Adbhqx-Mxupju Hx Past Med/Social Hx: Reviewed Nursing Past Med/Soc Hx Patient Social History Recent Foreign Travel: No Contact w/Someone Who Travel: No Recent Hopitalizations: No Immunizations Up To Date Tetanus Booster (TDap): Unknown Date of Pneumonia Vaccine: Mar 30, 2017 Date of Influenza Vaccine: Jan 13, 2017 Seasonal Allergies Seasonal Allergies: No Past Medical History Surgeries: Yes Abdominal, Bowel Surgery, Cardiac, Coronary Stent, Neurological Respiratory: No Currently Using CPAP: No Currently Using BIPAP: No Cardiac: Yes (2 STENTS) Coronary Artery Disease, Heart Attack, Hypertension Neurological: Yes Seizure Disorder, TIA Reproductive Disorders: No Sexually Transmitted Disease: No HIV/AIDS: No Genitourinary: No Gastrointestinal: Yes (RIGHT INGUINAL HERNIA AND BOWEL OBSTRUCTION 07/2017) Abdominal Hernia, Gastroesophageal Reflux, Obstructive Bowel Musculoskeletal: No Endocrine: No HEENT: Yes Loss of Vision: Denies Hearing Impairment: Hard of Hearing Cancer: No Psychosocial: No Integumentary: No Blood Disorders: No Adverse Reaction/Blood Tranf: No (HAS HAD BLOOD WITH NO REACTION) Family Medical History Unknown family medical history No Pertinent Family Hx, Hypertension Physical Exam Vital Signs Vital Signs - First Documented 02/28/18 12:42 Temp 98.2 Pulse 68 Resp 20 B/P (MAP) 142/75 (97) Pulse Ox 98 O2 Delivery Room Air Capillary Refill : Height, Weight, BMI Height: 6'0.00" Weight: 107lbs. 0.0oz. 48.235527hi; 14.5 BMI Method:Stated General Appearance: No Apparent Distress, WD/WN HEENT: Normal ENT Inspection Neck: Full Range of Motion, Normal Inspection, Non Tender, Supple Cardiovascular: Regular Rate, Rhythm, No Murmur, Normal Peripheral Pulses Respiratory: Chest Non Tender, Lungs Clear, Normal Breath Sounds Gastrointestinal: Normal Bowel Sounds, No Organomegaly, No Pulsatile Mass, Non Tender, Soft Back: Normal Inspection, No CVA Tenderness, No Vertebral Tenderness, Other ( there is no tenderness to palpation of the neck and cervical spine.) Extremity: Normal Capillary Refill, Normal Inspection Neurologic/Psychiatric: Alert, Oriented x3, No Motor/Sensory Deficits Skin: Normal Color, Warm/Dry; No Rash Progress/Results/Core Measures Results/Orders Lab Results Laboratory Tests Test 02/28/18 13:05 Range/Units White Blood Count 5.2 4.3-11.0 10^3/uL Red Blood Count 3.24 L 4.35-5.85 10^6/uL Hemoglobin 10.7 L 13.3-17.7 G/DL Hematocrit 34 L 40-54 % Mean Corpuscular Volume 104 H 80-99 FL Mean Corpuscular Hemoglobin 33 25-34 PG Mean Corpuscular Hemoglobin Concent 32 32-36 G/DL Red Cell Distribution Width 14.5 10.0-14.5 % Platelet Count 264 130-400 10^3/uL Mean Platelet Volume 8.9 7.4-10.4 FL Neutrophils (%) (Auto) 68 42-75 % Lymphocytes (%) (Auto) 22 12-44 % Monocytes (%) (Auto) 8 0-12 % Eosinophils (%) (Auto) 2 0-10 % Basophils (%) (Auto) 0 0-10 % Neutrophils # (Auto) 3.5 1.8-7.8 X 10^3 Lymphocytes # (Auto) 1.2 1.0-4.0 X 10^3 Monocytes # (Auto) 0.4 0.0-1.0 X 10^3 Eosinophils # (Auto) 0.1 0.0-0.3 10^3/uL Basophils # (Auto) 0.0 0.0-0.1 10^3/uL Sodium Level 140 135-145 MMOL/L Potassium Level 3.7 3.6-5.0 MMOL/L Chloride Level 106 98-107 MMOL/L Carbon Dioxide Level 28 21-32 MMOL/L Anion Gap 6 5-14 MMOL/L Blood Urea Nitrogen 11 7-18 MG/DL Creatinine 0.85 0.60-1.30 MG/DL Estimat Glomerular Filtration Rate > 60 BUN/Creatinine Ratio 13 Glucose Level 94 70-105 MG/DL Lactic Acid Level 1.52 0.50-2.00 MMOL/L Calcium Level 8.7 8.5-10.1 MG/DL Corrected Calcium 9.0 8.5-10.1 MG/DL Total Bilirubin 0.3 0.1-1.0 MG/DL Aspartate Amino Transf (AST/SGOT) 16 5-34 U/L Alanine Aminotransferase (ALT/SGPT) 16 0-55 U/L Alkaline Phosphatase 106 40-136 U/L Troponin I < 0.30 <0.30 NG/ML Total Protein 6.9 6.4-8.2 GM/DL Albumin 3.6 3.2-4.5 GM/DL My Orders Orders - JUWAN DRIVER MD Ct Head/Cervical Spine Wo (02/28/18 13:01) Cbc With Automated Diff (02/28/18 13:01) Comprehensive Metabolic Panel (02/28/18 13:01) Ekg Tracing (02/28/18 13:01) Troponin I (02/28/18 13:01) Chest 1 View, Ap/Pa Only (02/28/18 13:01) Blood Culture (02/28/18 13:09) Lactic Acid Analyzer (02/28/18 13:09) Vital Signs/I&O 02/28/18 12:42 Temp 98.2 Pulse 68 Resp 20 B/P (MAP) 142/75 (97) Pulse Ox 98 O2 Delivery Room Air Progress Progress Note : Time: 14:05 Progress Note The patient's laboratory evaluation, chest x-ray, and CT of the head and neck were all unremarkable. Patient remained asymptomatic while in the emergency department. Patient was reassured. He was asked to follow up closely with his primary care on Friday. He was advised to return the emergency Department if any further problems or questions Departure Impression Primary Impression: Neck pain Disposition: 01 HOME, SELF-CARE Condition: Improved Departure-Patient Inst. Decision time for Depature: 14:06 Referrals: JAVIER GONZALEZ MD (PCP/Family) Primary Care Physician Patient Instructions: Neck Pain Add. Discharge Instructions: Follow-up with her doctor on Friday. Rest at home. Return if any problems. All discharge instructions reviewed with patient and/or family. Voiced understanding. JUWAN DRIVER MD Feb 28, 2018 13:01
[2018-02-28 13:26] LABS: BASOPHILS % (AUTO) 0 % (0-10); EOSINOPHILS # (AUTO) 0.1 10^3/uL (0.0-0.3); EOSINOPHILS % (AUTO) 2 % (0-10); HEMATOCRIT 34 % (40-54); HEMOGLOBIN 10.7 G/DL (13.3-17.7); LYMPHOCYTES # (AUTO) 1.2 X 10^3 (1.0-4.0); LYMPHOCYTES % (AUTO) 22 % (12-44); MEAN CORPUSCULAR HEMOGLOBIN 33 PG (25-34); MEAN CORPUSCULAR HGB CONC 32 G/DL (32-36); MEAN CORPUSCULAR VOLUME 104 FL (80-99); MEAN PLATELET VOLUME 8.9 FL (7.4-10.4); MONOCYTES # (AUTO) 0.4 X 10^3 (0.0-1.0); MONOCYTES % (AUTO) 8 % (0-12); NEUTROPHILS # (AUTO) 3.5 X 10^3 (1.8-7.8); NEUTROPHILS % (AUTO) 68 % (42-75); PLATELET COUNT 264 10^3/uL (130-400); RED BLOOD COUNT 3.24 10^6/uL (4.35-5.85); RED CELL DISTRIBUTION WIDTH 14.5 % (10.0-14.5); WHITE BLOOD COUNT 5.2 10^3/uL (4.3-11.0)
--- NOTE | 2018-02-28 13:31 | Diagnostic Imaging Report ---
INDICATION: Altered mental status. TIME OF EXAM: 1:24 PM Correlation is made with prior study from 12/15/2017. FINDINGS: The heart size is normal. The pulmonary vascularity is unremarkable. The lungs are clear. No infiltrate, effusion or pneumothorax is detected. IMPRESSION: No acute cardiopulmonary process is detected. Dictated by: Dictated on workstation # [id number]
--- NOTE | 2018-02-28 13:39 | Diagnostic Imaging Report ---
PROCEDURE: CT head and CT cervical spine without contrast. TECHNIQUE: Multiple contiguous axial images were obtained through the brain and cervical spine without the use of intravenous contrast. Sagittal and coronal reformations through the cervical spine were then performed. INDICATION: Altered mental status and neck pain. Correlation is made with prior head CT from 12/08/2017. CT head: Post surgical changes of left parietal craniotomy are seen. Ventricles and sulci appear stable. There is a moderate periventricular hypodensity noted consistent with chronic microvascular ischemia. No sulcal effacement is identified. There is no midline shift. No acute intra-axial or extra-axial hemorrhage is detected. Cisterns are patent. Visualized paranasal sinuses are clear. IMPRESSION: Stable noncontrast CT brain. No acute feature is detected. CT cervical spine: Curvature and alignment is normal. There is multilevel degenerative disc disease with variable disc space narrowing and marginal spurring. Prevertebral tissues are normal. No fractures are seen. The odontoid is intact. IMPRESSION: Cervical spondylosis. No acute bony abnormality is detected. Dictated by: Dictated on workstation # [id number]
[2018-02-28 13:44] LABS: ALANINE AMINOTRANSFERASE 16 U/L (0-55); ALBUMIN 3.6 GM/DL (3.2-4.5); ALKALINE PHOSPHATASE 106 U/L (40-136); BILIRUBIN,TOTAL 0.3 MG/DL (0.1-1.0); BUN/CREATININE RATIO 13; CALCIUM 8.7 MG/DL (8.5-10.1); CARBON DIOXIDE 28 MMOL/L (21-32); CHLORIDE 106 MMOL/L (98-107); CREATININE SERUM 0.85 MG/DL (0.60-1.30); GFR ESTIMATED > 60; GLUCOSE 94 MG/DL (70-105); POTASSIUM 3.7 MMOL/L (3.6-5.0); SODIUM 140 MMOL/L (135-145); TOTAL PROTEIN 6.9 GM/DL (6.4-8.2)
--- OUTSIDE RECORDS SUMMARY | 2018-02-28 13:53 | XMS REPORT ---
Author Author NICOLE ISAAC Organization [facility] [place] Address [address] [place] [address] Care Team Providers Care Research Food Technologist Name Role Phone NICOLE ISAAC Unavailable PROBLEMS Unknown Problems ALLERGIES No Information ENCOUNTERS Encounter Location Date Diagnosis [place] [id number] [place] [phone] Dec, Encounter for immunization Z23 [place] [id number] [place] [phone] Feb, Encounter for immunization Z23 [place] [id number] [place] [phone] Feb, Encounter for immunization Z23 IMMUNIZATIONS Vaccine Route Administration Date Status PCV 13 IM Intramuscular Jan 28, 2018 Administered SOCIAL HISTORY Never Assessed REASON FOR VISIT Pneumonia shot David HARE PLAN OF CARE VITAL SIGNS MEDICATIONS Unknown Medications RESULTS No Results PROCEDURES Procedure Date Ordered Result Body Site PCV 13 Jan 28, 2018 SINGLE IMMUNIZATION ADMIN Jan 28, 2018 INSTRUCTIONS MEDICATIONS ADMINISTERED No Known Medications
--- OUTSIDE RECORDS SUMMARY | 2018-02-28 13:55 | XMS REPORT | Continuity of Care Document ---
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 I25.10 ATHSCL HEART DISEASE OF [place] CORONARY 02/04/2018 YOUNG DRAKE L [employer] SPECIALIST Ot I65.23 OCCLUSION AND STENOSIS OF [place] 02/04/2018 YOUNG DRAKE L [employer] SPECIALIST Ot 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 [place] 02/04/2018 YOUNG DRAKE L [employer] SPECIALIST Ot Z78.9 OTHER SPECIFIED HEALTH STATUS 02/04/2018 MARIAMA CARRASCO, LISETH Harris Ot K22.2 ESOPHAGEAL OBSTRUCTION 02/04/2018 MARIAMA CARRASCO, LISETH Harris Ot K29.70 GASTRITIS, UNSPECIFIED, WITHOUT BLEEDING 02/04/2018 YOUNG DRAKE L [employer] SPECIALIST Ot I25.10 ATHSCL HEART DISEASE OF [place] CORONARY 02/04/2018 YOUNG DRAKE L [employer] SPECIALIST Ot I65.23 OCCLUSION AND STENOSIS OF [place] 02/04/2018 YOUNG DRAKE L [employer] SPECIALIST Ot 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 Type Provider Facility Loc./Unit Complaint [id number] 12/22/2017 08:18:00 12/22/2017 23:59:59 CLS Outpatient LISA CARRASCO, JAVIER Iyer [facility] RAD RULMONARY NODULES [id number] 12/19/2017 17:26:00 12/19/2017 18:54:00 DIS Emergency NAVEED TAI MD [facility] ER THROAT/TONGUE PAIN [id number] 12/15/2017 10:08:00 12/15/2017 23:59:59 CLS Outpatient JAVIER GONZALEZ MD [facility] RAD PNEUMONIA [id number] 12/08/2017 20:10:00 12/09/2017 15:10:00 DIS Inpatient NAIDA CONSTANTINO MD [facility] 4TH ACUTE CONFUSION,RLL PNEUMONIA,HYPONATRMIA POSS CVA [id number] 08/07/2017 07:19:00 08/07/2017 12:00:00 DIS Outpatient MAXIMILIANO LUU DO [facility] RIGHT INGUINAL HERNIA [id number] 08/06/2017 09:01:00 08/06/2017 12:00:00 DIS Outpatient MAXIMILIANO LUU DO [facility] PREOP RIGHT INGUINAL HERNIA [id number] 07/31/2017 15:45:00 08/01/2017 17:51:00 DIS Inpatient MAXIMILIANO LUU DO [facility] 4TH SMALL BOWEL OBSTRUCTION, ABD PAIN [id number] 06/11/2017 00:34:00 06/11/2017 23:59:59 CLS Preadmit JAVIER GONZALEZ MD [facility] LAB ANEMIA [id number] 03/12/2017 13:16:00 06/10/2017 00:01:00 DIS Outpatient JAVIER GONZALEZ MD [facility] LAB ANEMIA [id number] 03/06/2017 09:56:00 03/06/2017 23:59:59 CLS Outpatient JAVIER GONZALEZ MD [facility] LAB K21.0 [id number] 03/03/2017 09:27:00 03/03/2017 23:59:59 CLS Outpatient YOUNG DRAKE [facility] LAB I70.0 I25.10 I65.23 Z78.9 [id number] 06/03/2016 10:11:00 06/03/2016 23:59:59 CLS Outpatient LISETH LESLIE MD [facility] ENDO GERD [id number] 05/30/2016 20:45:00 05/31/2016 13:00:00 DIS Inpatient JORDAN WHIET DO [facility] ICU CHEST PAIN;CAD [id number] 01/26/2016 08:12:00 01/26/2016 23:59:59 CLS Outpatient YOUNG DRAKE [facility] LAB CAD,CAROTID ARTERIAL DISEASE [id number] 11/06/2015 00:10:00 11/06/2015 23:59:59 CLS Preadmit VICTORINA AVERY DO [facility] DOG BITE [id number] 09/01/2015 08:20:00 11/05/2015 00:01:00 DIS Outpatient VICTORINA AVERY DO [facility] DOG BITE [id number] 10/08/2015 19:04:00 10/09/2015 14:40:00 DIS Inpatient JAVIER GONZALEZ MD [facility] ICU ACUTE CVA [id number] 08/04/2015 20:05:00 08/04/2015 22:05:00 DIS Emergency VICTORINA AVEYR DO [facility] ER DOG BITE [id number] 06/04/2015 01:59:00 06/05/2015 14:10:00 DIS Inpatient INDRA CARRASCO FACCREBECCA FACP CCDS [facility] ICU CHEST PAIN [id number] 01/26/2015 09:09:00 01/26/2015 23:59:59 CLS Outpatient YOUNG DRAKE [facility] LAB CAD, [place] [id number] 03/27/2013 09:18:00 03/27/2013 11:10:00 DIS Emergency VICTORINA AVERY DO [facility] ER NECK PAIN, RINGING IN EARS [id number] 04/17/2016 08:27:00 Document Registration [id number] 04/17/2016 08:27:00 Document Registration [id number] 04/17/2016 08:27:00 Document Registration [id number] 04/17/2016 08:27:00 Document Registration [id number] 11/26/2011 22:30:00 Document Registration [id number] 01/26/2011 17:03:00 Document Registration [id number] 12/25/2009 11:59:00 Document Registration [id number] 03/16/2009 13:39:00 Document Registration [id number] 01/30/2009 12:27:00 Document Registration [id number] 01/26/2009 08:27:00 Document Registration [id number] 11/04/2008 11:18:00 Document Registration [id number] 12/07/2007 09:32:00 Document Registration
[2018-02-28] MEDS ORDERED: ACETAMINOPHEN 325 MG TABLET PO ONE (14:30)
[2018-02-28 15:14] VITALS: BP 135/91
== END 2018-02-28 15:15 | disposition home or self-care (01) ==
LOC: EDUNIT# 12:35 → ER 12:37
DX: M54.2 Cervicalgia (principal); I25.10 Atherosclerotic heart disease of native coronary artery without angina pectoris; I10 Essential (primary) hypertension; I25.2 Old myocardial infarction; G40.909 Epilepsy, unspecified, not intractable, without status epilepticus; K21.9 Gastro-esophageal reflux disease without esophagitis; Z87.19 Personal history of other diseases of the digestive system; Z86.73 Personal history of transient ischemic attack (TIA), and cerebral infarction without residual deficits; Z88.5 Allergy status to narcotic agent; Z88.8 Allergy status to other drugs, medicaments and biological substances; Z79.82 Long term (current) use of aspirin; Z95.5 Presence of coronary angioplasty implant and graft; Z98.890 Other specified postprocedural states
CPT/HCPCS: 36415; 70450; 71045; 72125; 80053; 83605; 84484; 85025; 87040; 93005

== ENCOUNTER 2018-04-11 13:53 | Emergency (ER) | payer MEDICARE ==
[~2018-04-11] VITALS: Ht 182.9 cm; Wt 53.5 kg
--- OUTSIDE RECORDS SUMMARY | 2018-04-11 14:01 | XMS REPORT | Continuity of Care Document ---
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 Automated erythrocyte mean corpuscular hemoglobin (mass per erythrocyte) 33 pg 25-34 Automated erythrocyte mean corpuscular hemoglobin concentration measurement ( mass/volume) 32 g/dL 32-36 Automated erythrocyte distribution width ratio 14.5 % 10.0-14.5 Automated blood platelet count (count/volume) 264 10*3/uL 130-400 Automated blood platelet mean volume measurement 8.9 [foz_us] 7.4-10.4 Automated blood neutrophils/100 leukocytes 68 % 42-75 Automated blood lymphocytes/100 leukocytes 22 % 12-44 Blood monocytes/100 leukocytes 8 % 0-12 Automated blood eosinophils/100 leukocytes 2 % 0-10 Automated blood basophils/100 leukocytes 0 % 0-10 Blood neutrophils automated count (number/volume) 3.5 10*3 1.8-7.8 Blood lymphocytes automated count (number/volume) 1.2 10*3 1.0-4.0 Blood monocytes automated count (number/volume) 0.4 10*3 0.0-1.0 Automated eosinophil count 0.1 10*3/uL 0.0-0.3 Automated blood basophil count (count/volume) 0.0 10*3/uL 0.0-0.1 Blood lactic acid measurement (moles/volume) - 02/28/18 13:05 Blood lactic acid measurement (moles/volume) 1.52 mmol/L 0.50-2.00 Comprehensive metabolic panel - 02/28/18 13:05 Serum or plasma sodium measurement (moles/volume) 140 mmol/L 135-145 Serum or plasma potassium measurement (moles/volume) 3.7 mmol/L 3.6-5.0 Serum or plasma chloride measurement (moles/volume) 106 mmol/L 98-107 Carbon dioxide 28 mmol/L 21-32 Serum or plasma anion gap determination (moles/volume) 6 mmol/L 5-14 Serum or plasma urea nitrogen measurement (mass/volume) 11 mg/dL 7-18 Serum or plasma creatinine measurement (mass/volume) 0.85 mg/dL 0.60-1.30 Serum or plasma urea nitrogen/creatinine mass ratio 13 NRG Serum or plasma creatinine measurement with calculation of estimated glomerular filtration rate > NRG Serum or plasma glucose measurement (mass/volume) 94 mg/dL 70-105 Serum or plasma calcium measurement (mass/volume) 8.7 mg/dL 8.5-10.1 Serum or plasma total bilirubin measurement (mass/volume) 0.3 mg/dL 0.1-1.0 Serum or plasma alkaline phosphatase measurement (enzymatic activity/volume) 106 U/L 40-136 Serum or plasma aspartate aminotransferase measurement (enzymatic activity/ volume) 16 U/L 5-34 Serum or plasma alanine aminotransferase measurement (enzymatic activity/volume ) 16 U/L 0-55 Serum or plasma protein measurement (mass/volume) 6.9 g/dL 6.4-8.2 Serum or plasma albumin measurement (mass/volume) 3.6 g/dL 3.2-4.5 CALCIUM CORRECTED 9.0 mg/dL 8.5-10.1 Serum or plasma troponin i.cardiac measurement (mass/volume) - 02/28/18 13:05 Serum or plasma troponin i.cardiac measurement (mass/volume) < ng/ mL <0.30 Bacterial blood culture - 02/28/18 13:05 Bacterial blood culture NG NRG Bacterial blood culture - 02/28/18 13:45 Bacterial blood culture NG NRG Encounters ACCT No. Visit Date/Time Discharge Status Pt. Type Provider Facility Loc./Unit Complaint [id number] 02/28/2018 12:37:00 02/28/2018 15:15:00 DIS Emergency VILLA CARRASCO, JUWAN [facility] ER NECK PAIN/WEAKNESS [id number] 12/22/2017 08:18:00 12/22/2017 23:59:59 CLS Outpatient JAVIER GONZALEZ MD [facility] RAD RULMONARY NODULES [id number] 12/19/2017 17:26:00 12/19/2017 18:54:00 DIS Emergency NAVEED TAI MD [facility] ER THROAT/TONGUE PAIN [id number] 12/15/2017 10:08:00 12/15/2017 23:59:59 CLS Outpatient JAVIER GONZALEZ MD [facility] RAD PNEUMONIA [id number] 12/08/2017 20:10:00 12/09/2017 15:10:00 DIS Inpatient VIRA CARRASCO, NAIDA Davis [facility] 4TH ACUTE CONFUSION,RLL PNEUMONIA,HYPONATRMIA POSS CVA [id number] 08/07/2017 07:19:00 08/07/2017 12:00:00 DIS Outpatient MAXIMILIANO LUU DO [facility] SDC RIGHT INGUINAL HERNIA [id number] 08/06/2017 09:01:00 08/06/2017 12:00:00 DIS Outpatient MAXIMILIANO LUU DO [facility] PREOP RIGHT INGUINAL HERNIA [id number] 07/31/2017 15:45:00 08/01/2017 17:51:00 DIS Inpatient MAXIMILIANO LUU DO [facility] 4TH SMALL BOWEL OBSTRUCTION, ABD PAIN [id number] 06/11/2017 00:34:00 06/11/2017 23:59:59 CLS Preadmit JAVIER GONZALEZ MD [facility] LAB ANEMIA [id number] 03/12/2017 13:16:00 06/10/2017 00:01:00 DIS Outpatient JAVIER GONZALEZ MD [facility] LAB ANEMIA [id number] 03/06/2017 09:56:00 03/06/2017 23:59:59 CLS Outpatient JAVIER GONZALEZ MD [facility] LAB K21.0 [id number] 03/03/2017 09:27:00 03/03/2017 23:59:59 CLS Outpatient YOUNG DRAKE [facility] LAB I70.0 I25.10 I65.23 Z78.9 [id number] 06/03/2016 10:11:00 06/03/2016 23:59:59 CLS Outpatient LISETH LESLIE MD [facility] ENDO GERD [id number] 05/30/2016 20:45:00 05/31/2016 13:00:00 DIS Inpatient JORDAN WHITE DO [facility] ICU CHEST PAIN;CAD [id number] 01/26/2016 08:12:00 01/26/2016 23:59:59 CLS Outpatient YOUNG DRAKE [facility] LAB CAD,CAROTID ARTERIAL DISEASE [id number] 11/06/2015 00:10:00 11/06/2015 23:59:59 CLS Preadmit GENA MARTINEZVICTORINA [facility] DOG BITE [id number] 09/01/2015 08:20:00 11/05/2015 00:01:00 DIS Outpatient VICTORINA AVERY DO [facility] DOG BITE [id number] 10/08/2015 19:04:00 10/09/2015 14:40:00 DIS Inpatient JAVIER GONZALEZ MD [facility] ICU ACUTE CVA [id number] 08/04/2015 20:05:00 08/04/2015 22:05:00 DIS Emergency GENA MARTINEZVICTORINA [facility] ER DOG BITE [id number] 06/04/2015 01:59:00 06/05/2015 14:10:00 DIS Inpatient INDRA CARRASCO FACCREBECCA FACP CCDS [facility] ICU CHEST PAIN [id number] 01/26/2015 09:09:00 01/26/2015 23:59:59 CLS Outpatient YOUNG DRAKE [facility] LAB CAD, SCLEORIS [id number] 03/27/2013 09:18:00 03/27/2013 11:10:00 DIS Emergency GENA VICTORINA [facility] ER NECK PAIN, RINGING IN EARS [id number] 04/08/2018 13:35:00 PEN Preadmit JAVIER GONZALEZ MD [facility] REHAB NECK PAIN [id number] 04/17/2016 08:27:00 Document Registration [id number] 04/17/2016 08:27:00 Document Registration [id number] 04/17/2016 08:27:00 Document Registration [id number] 04/17/2016 08:27:00 Document Registration [id number] 11/26/2011 22:30:00 Document Registration [id number] 01/26/2011 17:03:00 Document Registration [id number] 12/25/2009 11:59:00 Document Registration [id number] 03/16/2009 13:39:00 Document Registration [id number] 01/30/2009 12:27:00 Document Registration [id number] 01/26/2009 08:27:00 Document Registration [id number] 11/04/2008 11:18:00 Document Registration [id number] 12/07/2007 09:32:00 Document Registration
[2018-04-11] MEDS ORDERED: QUET25TA PO (14:13)
--- NOTE | 2018-04-11 14:13 | ED General ---
General Chief Complaint: Ear Problems Stated Complaint: NECK PAIN,RINGING IN EARS, FLU Source of Information: Patient Exam Limitations: No Limitations History of Present Illness Date Seen by Provider: Apr 11, 2018 Time Seen by Provider: 13:57 Initial Comments This 78-year-old gentleman presents to the emergency room with complaints of hearing songs in his ears when they're not actually playing. He presents a list of Song titles an artist that he has been hearing. He reports this is disrupting his sleep. He clarifies that this is not ringing or tinnitus but actual songs. He occasionally had these auditory hallucinations in the past but since starting prednisone and Tamiflu for treatment of influenza 4 days ago the hallucinations have become constant. He reports going to an ux researcher yesterday who cleaned his years and is working on hearing aids. However, cleaning his ears did not help with the auditory hallucinations. Patient appears quite hard of hearing as well. Allergies and Home Medications Allergies Coded Allergies: Ibockjm-Pfv-Num Reductase Inhibitor (Verified Allergy, Mild, ELEVATED LIVER ENZYMES, 08/06/17) gemfibrozil (Verified Allergy, Mild, NAUSEA, 08/06/17) codeine (Verified Allergy, Unknown, 08/06/17) Home Medications Aspirin 81 Mg Tab.chew, 81 MG PO Q48H, (Reported) Famotidine 20 Mg Tablet, 20 MG PO DAILY, (Reported) Ferrous Sulfate 325 Mg Tablet, 325 MG PO DAILY, (Reported) Levetiracetam 500 Mg Tablet, 500 MG PO DAILY, (Reported) Lisinopril 10 Mg Tablet, 5 MG PO DAILY, (Reported) TAKES 1/2 (10MG) TABLET Quetiapine Fumarate 25 Mg Tablet, 25 MG PO HS Prescribed by: ROD HURST on 04/11/18 1413 Patient Home Medication List Home Medication List Reviewed: Yes Review of Systems Review of Systems Constitutional: no symptoms reported EENTM: see HPI Respiratory: cough Cardiovascular: no symptoms reported Gastrointestinal: no symptoms reported Genitourinary: no symptoms reported Musculoskeletal: no symptoms reported Skin: no symptoms reported Psychiatric/Neurological: See HPI Hematologic/Lymphatic: No Symptoms Reported Immunological/Allergic: no symptoms reported Past Kqmbdok-Fuuaun-Dlejyd Hx Past Med/Social Hx: Reviewed and Corrections made Patient Social History Recent Foreign Travel: No Contact w/Someone Who Travel: No Recent Hopitalizations: No Immunizations Up To Date Tetanus Booster (TDap): Unknown Date of Pneumonia Vaccine: Mar 30, 2017 Date of Influenza Vaccine: Jan 13, 2017 Seasonal Allergies Seasonal Allergies: No Past Medical History Surgeries: Yes Abdominal, Bowel Surgery, Cardiac, Coronary Stent, Neurological Respiratory: No Currently Using CPAP: No Currently Using BIPAP: No Cardiac: Yes (2 STENTS) Coronary Artery Disease, Heart Attack, Hypertension Neurological: Yes Seizure Disorder, TIA Reproductive Disorders: No Sexually Transmitted Disease: No HIV/AIDS: No Genitourinary: No Gastrointestinal: Yes (RIGHT INGUINAL HERNIA AND BOWEL OBSTRUCTION 07/2017) Abdominal Hernia, Gastroesophageal Reflux, Obstructive Bowel Musculoskeletal: No Endocrine: No HEENT: Yes Loss of Vision: Denies Hearing Impairment: Hard of Hearing Cancer: No Psychosocial: Yes (auditory hallucinations) Integumentary: No Blood Disorders: No Adverse Reaction/Blood Tranf: No (HAS HAD BLOOD WITH NO REACTION) Family Medical History Unknown family medical history No Pertinent Family Hx, Hypertension Physical Exam Vital Signs Vital Signs - First Documented 04/11/18 14:08 Temp 98.6 Pulse 94 Resp 16 B/P (MAP) 173/95 (121) Pulse Ox 96 Capillary Refill : Height, Weight, BMI Height: 5'7.00" Weight: 108lbs. 0.0oz. 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 He was instructed to stop these 2 medications and follow up with his primary care provider. Departure Impression Primary Impression: Auditory hallucinations Disposition: 01 HOME, SELF-CARE Condition: Stable Departure-Patient Inst. Decision time for Depature: 14:10 Referrals: JAVIER GONZALEZ MD (PCP/Family) Primary Care Physician Patient Instructions: NO INSTRUCTIONS GIVEN Add. Discharge Instructions: Your increased intensity of auditory hallucinations may be because of prednisone and Tamiflu. Please stop these 2 medications. You may try Seroquel as prescribed at bedtime to help you sleep and to help control the hallucinations. Contact your primary care provider if the situation has not resolved by Friday. Return to the ER if symptoms are worsening. All discharge instructions reviewed with patient and/or family. Voiced understanding. Scripts Quetiapine Fumarate (Seroquel) 25 Mg Tablet 25 MG PO HS, #10 TAB Prov: ROD CAMPO MD 04/11/18 Copy Copies To 1: TRINI ALEX JOSHUA T MD Apr 11, 2018 14:13
[2018-04-11 14:30] VITALS: BP 160/91
== END 2018-04-11 14:30 | disposition home or self-care (01) ==
LOC: EDUNIT# 13:53 → ER 13:55
DX: R44.0 Auditory hallucinations (principal); I25.10 Atherosclerotic heart disease of native coronary artery without angina pectoris; I25.2 Old myocardial infarction; I10 Essential (primary) hypertension; G40.909 Epilepsy, unspecified, not intractable, without status epilepticus; K21.9 Gastro-esophageal reflux disease without esophagitis; Z87.19 Personal history of other diseases of the digestive system; Z86.73 Personal history of transient ischemic attack (TIA), and cerebral infarction without residual deficits; Z88.5 Allergy status to narcotic agent; Z88.8 Allergy status to other drugs, medicaments and biological substances; Z79.82 Long term (current) use of aspirin; Z98.890 Other specified postprocedural states; Z95.5 Presence of coronary angioplasty implant and graft
CPT/HCPCS: 99282

== ENCOUNTER 2018-04-14 00:29 | Emergency (ER) | payer MEDICARE ==
[~2018-04-14] VITALS: Ht 200.7 cm; Wt 53.5 kg
[~2018-04-14 00:29] MED LIST changes: -IOHEXOL 350 MG/ML 100 ML (OMNIPAQUE 350) VIAL IV ONE; -NS 100 ML (IVPB) BAG IV ONE; -RECEIVED CONTRAST (Hold Metformin) IV SCH
--- OUTSIDE RECORDS SUMMARY | 2018-04-14 00:41 | XMS REPORT | Continuity of Care Document ---
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 09:09:00 01/26/2015 23:59:59 CLS Outpatient YOUNG DRAKE [facility] LAB CAD, SCLE[place]IS [id number] 03/27/2013 09:18:00 03/27/2013 11:10:00 DIS Emergency VICTORINA AVERY DO [facility] ER NECK PAIN, RINGING IN EARS [id number] 04/14/2018 00:33:00 ACT Emergency ROD CAMPO MD [facility] ER CP [id number] 04/17/2016 08:27:00 Document Registration [id number] 04/17/2016 08:27:00 Document Registration [id number] 04/17/2016 08:27:00 Document Registration [id number] 04/17/2016 08:27:00 Document Registration [id number] 11/26/2011 22:30:00 Document Registration [id number] 01/26/2011 17:03:00 Document Registration [id number] 12/25/2009 11:59:00 Document Registration [id number] 03/16/2009 13:39:00 Document Registration [id number] 01/30/2009 12:27:00 Document Registration [id number] 01/26/2009 08:27:00 Document Registration [id number] 11/04/2008 11:18:00 Document Registration [id number] 12/07/2007 09:32:00 Document Registration
[2018-04-14 00:45] LABS: BASOPHILS % (AUTO) 0 % (0-10); EOSINOPHILS # (AUTO) 0.2 10^3/uL (0.0-0.3); EOSINOPHILS % (AUTO) 2 % (0-10); HEMATOCRIT 38 % (40-54); HEMOGLOBIN 12.2 G/DL (13.3-17.7); LYMPHOCYTES # (AUTO) 1.9 X 10^3 (1.0-4.0); LYMPHOCYTES % (AUTO) 18 % (12-44); MEAN CORPUSCULAR HEMOGLOBIN 33 PG (25-34); MEAN CORPUSCULAR HGB CONC 32 G/DL (32-36); MEAN CORPUSCULAR VOLUME 103 FL (80-99); MEAN PLATELET VOLUME 8.7 FL (7.4-10.4); MONOCYTES # (AUTO) 1.2 X 10^3 (0.0-1.0); MONOCYTES % (AUTO) 12 % (0-12); NEUTROPHILS # (AUTO) 7.3 X 10^3 (1.8-7.8); NEUTROPHILS % (AUTO) 69 % (42-75); PLATELET COUNT 312 10^3/uL (130-400); RED BLOOD COUNT 3.72 10^6/uL (4.35-5.85); RED CELL DISTRIBUTION WIDTH 14.4 % (10.0-14.5); WHITE BLOOD COUNT 10.7 10^3/uL (4.3-11.0)
[2018-04-14 01:03] LABS: ALANINE AMINOTRANSFERASE 19 U/L (0-55); ALBUMIN 3.8 GM/DL (3.2-4.5); ALKALINE PHOSPHATASE 124 U/L (40-136); BILIRUBIN,TOTAL 0.4 MG/DL (0.1-1.0); BUN/CREATININE RATIO 14; CARBON DIOXIDE 26 MMOL/L (21-32); CHLORIDE 97 MMOL/L (98-107); CREATININE SERUM 0.98 MG/DL (0.60-1.30); GFR ESTIMATED > 60; GLUCOSE 126 MG/DL (70-105); MAGNESIUM 2.4 MG/DL (1.8-2.4); POTASSIUM 3.8 MMOL/L (3.6-5.0); SODIUM 135 MMOL/L (135-145); TOTAL PROTEIN 7.7 GM/DL (6.4-8.2)
[2018-04-14 01:09] LABS: MYOGLOBIN SERUM 51.5 NG/ML (10.0-92.0)
--- NOTE | 2018-04-14 05:04 | ED Chest Pain ---
General Chief Complaint: Chest Pain Stated Complaint: CP Nursing Triage Note: CHEST PAIN RADIATING TO LEFT SHOULDER Nursing Sepsis Screen: No Definite Risk Source: patient Exam Limitations: no limitations History of Present Illness Date Seen by Provider: Apr 14, 2018 Allergies and Home Medications Allergies Coded Allergies: Yjdpneq-Wri-Oav Reductase Inhibitor (Verified Allergy, Mild, ELEVATED LIVER ENZYMES, 08/06/17) gemfibrozil (Verified Allergy, Mild, NAUSEA, 08/06/17) codeine (Verified Allergy, Unknown, 08/06/17) Home Medications Aspirin 81 Mg Tab.chew, 81 MG PO Q48H, (Reported) Famotidine 20 Mg Tablet, 20 MG PO DAILY, (Reported) Ferrous Sulfate 325 Mg Tablet, 325 MG PO DAILY, (Reported) Levetiracetam 500 Mg Tablet, 500 MG PO DAILY, (Reported) Lisinopril 10 Mg Tablet, 5 MG PO DAILY, (Reported) TAKES 1/2 (10MG) TABLET Quetiapine Fumarate 25 Mg Tablet, 25 MG PO HS Prescribed by: ROD HURST on 04/11/18 1413 Past Ccabptf-Eehcht-Rqhrij Hx Patient Social History Alcohol Use: Denies Use Recreational Drug Use: No Smoking Status: Never a Smoker 2nd Hand Smoke Exposure: No Recent Foreign Travel: No Contact w/Someone Who Travel: No Recent Infectious Disease Expo: No Recent Hopitalizations: No Immunizations Up To Date Tetanus Booster (TDap): Unknown Date of Pneumonia Vaccine: Mar 30, 2017 Date of Influenza Vaccine: Jan 13, 2017 Seasonal Allergies Seasonal Allergies: No Past Medical History Surgeries: Yes Abdominal, Bowel Surgery, Cardiac, Coronary Stent, Neurological Respiratory: No Currently Using CPAP: No Currently Using BIPAP: No Cardiac: Yes (2 STENTS) Coronary Artery Disease, Heart Attack, Hypertension Neurological: Yes Seizure Disorder, Stroke, TIA Reproductive Disorders: No Sexually Transmitted Disease: No HIV/AIDS: No Genitourinary: No Gastrointestinal: Yes (RIGHT INGUINAL HERNIA AND BOWEL OBSTRUCTION 07/2017) Abdominal Hernia, Gastroesophageal Reflux, Obstructive Bowel Musculoskeletal: No Endocrine: No HEENT: Yes Loss of Vision: Denies Hearing Impairment: Hard of Hearing Cancer: No Psychosocial: Yes (auditory hallucinations) Integumentary: No Blood Disorders: No Adverse Reaction/Blood Tranf: No Family Medical History Unknown family medical history No Pertinent Family Hx, Hypertension Physical Exam Vital Signs Vital Signs - First Documented 04/14/18 00:35 Temp 97.5 Pulse 89 Resp 18 B/P (MAP) 137/94 (108) Capillary Refill : Less Than 3 Seconds Height, Weight, BMI Height: 6'7.00" Weight: 118lbs. 0.0oz. 53.057283rl; 14.5 BMI Method:Stated Progress/Results/Core Measures Results/Orders Lab Results Laboratory Tests Test 04/14/18 00:35 04/14/18 04:00 Range/Units White Blood Count 10.7 4.3-11.0 10^3/uL Red Blood Count 3.72 L 4.35-5.85 10^6/uL Hemoglobin 12.2 L 13.3-17.7 G/DL Hematocrit 38 L 40-54 % Mean Corpuscular Volume 103 H 80-99 FL Mean Corpuscular Hemoglobin 33 25-34 PG Mean Corpuscular Hemoglobin Concent 32 32-36 G/DL Red Cell Distribution Width 14.4 10.0-14.5 % Platelet Count 312 130-400 10^3/uL Mean Platelet Volume 8.7 7.4-10.4 FL Neutrophils (%) (Auto) 69 42-75 % Lymphocytes (%) (Auto) 18 12-44 % Monocytes (%) (Auto) 12 0-12 % Eosinophils (%) (Auto) 2 0-10 % Basophils (%) (Auto) 0 0-10 % Neutrophils # (Auto) 7.3 1.8-7.8 X 10^3 Lymphocytes # (Auto) 1.9 1.0-4.0 X 10^3 Monocytes # (Auto) 1.2 H 0.0-1.0 X 10^3 Eosinophils # (Auto) 0.2 0.0-0.3 10^3/uL Basophils # (Auto) 0.0 0.0-0.1 10^3/uL Prothrombin Time 13.0 12.2-14.7 SEC INR Comment 1.0 0.8-1.4 Activated Partial Thromboplast Time 33 24-35 SEC Sodium Level 135 135-145 MMOL/L Potassium Level 3.8 3.6-5.0 MMOL/L Chloride Level 97 L 98-107 MMOL/L Carbon Dioxide Level 26 21-32 MMOL/L Anion Gap 12 5-14 MMOL/L Blood Urea Nitrogen 14 7-18 MG/DL Creatinine 0.98 0.60-1.30 MG/DL Estimat Glomerular Filtration Rate > 60 BUN/Creatinine Ratio 14 Glucose Level 126 H 70-105 MG/DL Calcium Level 9.0 8.5-10.1 MG/DL Corrected Calcium 9.2 8.5-10.1 MG/DL Magnesium Level 2.4 1.8-2.4 MG/DL Total Bilirubin 0.4 0.1-1.0 MG/DL Aspartate Amino Transf (AST/SGOT) 14 5-34 U/L Alanine Aminotransferase (ALT/SGPT) 19 0-55 U/L Alkaline Phosphatase 124 40-136 U/L Myoglobin 51.5 10.0-92.0 NG/ML Troponin I < 0.028 < 0.028 <0.028 NG/ML Total Protein 7.7 6.4-8.2 GM/DL Albumin 3.8 3.2-4.5 GM/DL My Orders Orders - ROD CAMPO MD Cbc With Automated Diff (04/14/18 00:40) Magnesium (04/14/18 00:40) Chest 1 View, Ap/Pa Only (04/14/18 00:40) Ekg Tracing (04/14/18 00:40) Cardiac Profile 1 (04/14/18 00:40) Comprehensive Metabolic Panel (04/14/18 00:40) Myoglobin Serum (04/14/18 00:40) Protime With Inr (04/14/18 00:40) Partial Thromboplastin Time (04/14/18 00:40) O2 (04/14/18 00:40) Monitor-Rhythm Ecg Trace Only (04/14/18 00:40) Saline Lock/Iv-Start (04/14/18 00:40) Troponin I (04/14/18 04:00) Vital Signs/I&O 04/14/18 04/14/18 04/14/18 04/14/18 00:35 00:35 00:35 05:13 Temp 97.5 97.0 Pulse 89 80 Resp 18 22 B/P (MAP) 137/94 (108) 154/81 (105) Pulse Ox 97 97 99 O2 Delivery Nasal Cannula Nasal Cannula Nasal Cannula Room Air O2 Flow Rate 2.00 2.0 2.0 0 Blood Pressure Mean: 108 Initial ECG Impression Date: Apr 14, 2018 Initial ECG Impression Time: 00:41 Initial ECG Rate: 82 Initial ECG Rhythm: Normal Sinus Comment Sinus rhythm with no ST elevation or depression. PAC noted. No abnormal interval or axis deviation. Departure Impression Primary Impression: Chest pain Qualified Codes: R07.9 - Chest pain, unspecified Additional Impression: Coronary artery disease Qualified Codes: I25.10 - Atherosclerotic heart disease of [place] coronary artery without angina pectoris Disposition: HOME, SELF-CARE Condition: Improved Departure-Patient Inst. Decision time for Depature: 05:00 Referrals: JAVIER GONZALEZ MD (PCP/Family) Primary Care Physician Patient Instructions: Chest Pain (DC) Add. Discharge Instructions: Continue with your medications as previously prescribed. Call Dr. Agarwla's office as soon as they opened this morning to secure follow- up. Return to emergency room if symptoms worsen again. All discharge instructions reviewed with patient and/or family. Voiced understanding. Copy Copies To 1: REBECCA AGARWAL MD FACP FACC CCDS ROD CAMPO MD Apr 14, 2018 05:04
[2018-04-14 05:13] VITALS: BP 154/81
--- NOTE | 2018-04-14 08:10 | Diagnostic Imaging Report ---
PATIENT HISTORY: Chest pain. TECHNIQUE: Frontal view of the chest COMPARISON: 02/28/2018 FINDINGS: Lung volumes are normal. No focal consolidation is seen. There appears to be increased opacity at the apices which is likely due to overlying structures. No pneumothorax or pleural effusion is seen. The cardiac silhouette is normal in size. IMPRESSION: No acute pulmonary abnormality seen. Dictated by: Dictated on workstation # [id number]
== END 2018-04-14 05:12 | disposition home or self-care (01) ==
LOC: EDUNIT# 00:29 → ER 00:33
DX: R07.9 Chest pain, unspecified (principal); I25.10 Atherosclerotic heart disease of native coronary artery without angina pectoris; I25.2 Old myocardial infarction; I10 Essential (primary) hypertension; G40.909 Epilepsy, unspecified, not intractable, without status epilepticus; K21.9 Gastro-esophageal reflux disease without esophagitis; Z87.19 Personal history of other diseases of the digestive system; Z86.73 Personal history of transient ischemic attack (TIA), and cerebral infarction without residual deficits; Z88.5 Allergy status to narcotic agent; Z88.8 Allergy status to other drugs, medicaments and biological substances; Z79.82 Long term (current) use of aspirin; Z95.5 Presence of coronary angioplasty implant and graft; Z98.890 Other specified postprocedural states
CPT/HCPCS: 36415; 71045; 80053; 83735; 83874; 84484; 85025; 85610; 85730; 93005; 93041

== ENCOUNTER → 2018-04-14 | Outpatient (CLI) | payer MEDICARE ==
[~2018-04-14] MED LIST changes: +IOHEXOL 350 MG/ML 100 ML (OMNIPAQUE 350) VIAL IV ONE; +NS 100 ML (IVPB) BAG IV ONE; +QUET25TA PO; +RECEIVED CONTRAST (Hold Metformin) IV SCH
--- NOTE | 2018-04-14 13:54 | Diagnostic Imaging Report ---
PROCEDURE: CT head with and without contrast. TECHNIQUE: Multiple contiguous axial images were obtained through the brain before and after the administration of intravenous contrast. INDICATION: Status post brain surgery. Patient complains of auditory hallucinations. COMPARISON: Correlation is made with prior CT from 02/28/2018. FINDINGS: Parietal craniotomy is again noted. Ventricular size remains stable. Moderate periventricular hypodensity is again seen consistent with chronic microvascular ischemia. No sulcal effacement, midline shift or hemorrhage is detected. No abnormal enhancement following contrast administration is seen. Visualized paranasal sinuses demonstrate a small amount of fluid in the right maxillary sinus. There is mucosal thickening of the ethmoid air cells. IMPRESSION: 1. Stable chronic and postsurgical changes when compared to the exam from 02/28/2018. No acute intracranial process is detected. 2. Paranasal sinus disease. Dictated by: Dictated on workstation # [id number]
== END ==
LOC: RAD 12:45
PROVIDERS: ATTEND Physician Assistant
DX: J32.8 Other chronic sinusitis (principal); R44.0 Auditory hallucinations; Z98.890 Other specified postprocedural states
CPT/HCPCS: 70470

== ENCOUNTER → 2018-04-28 | Outpatient (CLI) | payer MEDICARE ==
[~2018-04-28] VITALS: Ht 182.9 cm; Wt 54.0 kg
[~2018-04-28] MED LIST changes: +CATHETER FLUSH 10 ML SYR IV PRN; +REGADENOSON 0.4 MG/5 ML SYR (LEXISCAN) IV ONE
[2018-04-28 08:57] VITALS: BP 149/76
[2018-04-28 09:07] VITALS: BP 158/86
--- NOTE | 2018-04-28 14:52 | STRESS TEST ---
DATE OF SERVICE: 04/28/2018 RESTING AND POST REGADENOSON TECHNETIUM-99M TETROFOSMIN SPECT CT IMAGING CLINICAL DIAGNOSIS: Baseline images were carried out after injection of 10.09 mCi of technetium-99m Tetrofosmin. This was followed by 0.4 mg Regadenoson and 30 mCi of technetium-99m Tetrofosmin for stress imaging. The electrocardiogram showed sinus rhythm at baseline. The electrocardiogram shows an early repolarization pattern. The electrocardiogram did not change significantly with the Regadenoson infusion. The patient noted a feeling of being hot in the chest following Regadenoson infusion, which resolved in a few minutes. Review of images at rest and following stress does not indicate any significant perfusion defects consistent with significant myocardial ischemia or infarction. Gated images show normal global left ventricular systolic function with normal regional wall motion. Left ventricular ejection fraction is calculated to be 47%, but appears subjectively higher than that. Left ventricular end diastolic volume is 56 mL. TID is absent (1.06). CONCLUSIONS: 1. No evidence of any significant myocardial ischemia or infarction on this study. 2. Normal regional wall motion. 3. Normal global left ventricular systolic function with a calculated ejection fraction of 47%, subjectively higher than that. Job ID: [id number] DocumentID: [id number] Dictated Date: 04/28/2018 13:16:46 Grain Mixer Date: 04/28/2018 14:51:41 Dictated By: REBECCA BURRELL MD, MA, FACP, FACC, MTDD
== END ==
LOC: CARD 07:08
PROVIDERS: ATTEND Internal Medicine Cardiovascular Disease
DX: R07.9 Chest pain, unspecified (principal); R06.02 Shortness of breath; I77.89 Other specified disorders of arteries and arterioles; I25.10 Atherosclerotic heart disease of native coronary artery without angina pectoris
CPT/HCPCS: 78452; 93017

== ENCOUNTER → 2018-05-21 | Outpatient (CLI) | payer MEDICARE ==
[~2018-05-21] MED LIST changes: -CATHETER FLUSH 10 ML SYR IV PRN; -REGADENOSON 0.4 MG/5 ML SYR (LEXISCAN) IV ONE
== END ==
LOC: CARD 08:21
PROVIDERS: ATTEND Internal Medicine Cardiovascular Disease
DX: I25.10 Atherosclerotic heart disease of native coronary artery without angina pectoris (principal); R06.02 Shortness of breath; R07.89 Other chest pain; I77.9 Disorder of arteries and arterioles, unspecified
CPT/HCPCS: 93306

== ENCOUNTER 2018-08-06 10:26 | Outpatient (RCR) | payer MEDICARE, OTHER | END 2018-08-14 14:21 | disposition home or self-care (01) | PROVIDERS: ATTEND Internal Medicine | DX: M54.2 Cervicalgia (principal) ==

== ENCOUNTER → 2019-02-11 | Outpatient (CLI) | payer MEDICARE ==
[2019-02-11 10:39] LABS: BASOPHILS % (AUTO) 0 % (0-10); EOSINOPHILS # (AUTO) 0.2 10^3/uL (0.0-0.3); EOSINOPHILS % (AUTO) 2 % (0-10); HEMATOCRIT 38 % (40-54); HEMOGLOBIN 12.5 G/DL (13.3-17.7); LYMPHOCYTES # (AUTO) 1.3 X 10^3 (1.0-4.0); LYMPHOCYTES % (AUTO) 14 % (12-44); MEAN CORPUSCULAR HGB CONC 33 G/DL (32-36); MEAN CORPUSCULAR VOLUME 99 FL (80-99); MEAN PLATELET VOLUME 8.3 FL (7.4-10.4); MONOCYTES # (AUTO) 0.9 X 10^3 (0.0-1.0); MONOCYTES % (AUTO) 10 % (0-12); NEUTROPHILS # (AUTO) 7.1 X 10^3 (1.8-7.8); NEUTROPHILS % (AUTO) 74 % (42-75); PLATELET COUNT 327 10^3/uL (130-400); RED CELL DISTRIBUTION WIDTH 13.4 % (10.0-14.5); WHITE BLOOD COUNT 9.5 10^3/uL (4.3-11.0)
[2019-02-11 10:40] LABS: MEAN CORPUSCULAR HEMOGLOBIN 32 PG (25-34)
[2019-02-11 11:01] LABS: ALANINE AMINOTRANSFERASE 17 U/L (0-55); ALBUMIN 4.3 GM/DL (3.2-4.5); ALKALINE PHOSPHATASE 105 U/L (40-136); BILIRUBIN,TOTAL 0.3 MG/DL (0.1-1.0); BUN/CREATININE RATIO 17; CALCIUM 9.2 MG/DL (8.5-10.1); CARBON DIOXIDE 24 MMOL/L (21-32); CHLORIDE 98 MMOL/L (98-107); CREATININE SERUM 0.93 MG/DL (0.60-1.30); GFR ESTIMATED > 60; GLUCOSE 98 MG/DL (70-105); POTASSIUM 5.2 MMOL/L (3.6-5.0); SODIUM 131 MMOL/L (135-145); TOTAL PROTEIN 7.8 GM/DL (6.4-8.2)
== END ==
LOC: LAB 10:14
PROVIDERS: ATTEND Physician Assistant
DX: R44.0 Auditory hallucinations (principal); R51 Headache
CPT/HCPCS: 36415; 80053; 84443; 85025

== ENCOUNTER → 2019-02-16 | Outpatient (CLI) | payer MEDICARE ==
[~2019-02-16] MED LIST changes: +CATHETER FLUSH 10 ML SYR IV PRN; +HOLD METFORMIN - RECEIVED CONTRAST 20 ML VIAL IV SCH; +IOHEXOL 350 MG/ML 100 ML (OMNIPAQUE 350) VIAL IV ONE; +NS 100 ML (IVPB) BAG IV ONE
--- NOTE | 2019-02-16 11:27 | Diagnostic Imaging Report ---
PROCEDURE: CT head with and without contrast. TECHNIQUE: Multiple contiguous axial images were obtained through the brain before and after the administration of intravenous contrast. Auto Exposure Controls were utilized during the CT exam to meet ALARA standards for radiation dose reduction. DATE: February 16, 2019. COMPARISON: CT head April 14, 2018. Additional CT head imaging dating back to February 05, 2009. INDICATION: 79-year-old male, temporal headaches, hallucinations, double vision. FINDINGS: The ventricles and CSF spaces are within normal limits in size and configuration for patient age. There are areas of low-attenuation in the periventricular and subcortical white matter which are nonspecific but may relate to changes of chronic small vessel ischemic disease. There is no abnormal extra-axial fluid collection. There is no evidence of acute intracranial hemorrhage. There is no mass effect or midline shift. There are atherosclerotic calcifications noted. The visualized portions of the paranasal sinuses, mastoid air cells, and middle ears are well aerated bilaterally. IMPRESSION: 1. No identified acute intracranial abnormality. 2. Mild probable changes of chronic small vessel ischemic disease. Dictated by: Dictated on workstation # [id number]
== END ==
LOC: RAD 10:16
PROVIDERS: ATTEND Physician Assistant
DX: I67.82 Cerebral ischemia (principal); R44.1 Visual hallucinations
CPT/HCPCS: 70470

== ENCOUNTER → 2019-02-26 | Outpatient (CLI) | payer MEDICARE ==
[~2019-02-26] MED LIST changes: +GADOBUTROL 7.5 MMOL/7.5 ML (GADAVIST) VIAL IV ONE; -HOLD METFORMIN - RECEIVED CONTRAST 20 ML VIAL IV SCH; -IOHEXOL 350 MG/ML 100 ML (OMNIPAQUE 350) VIAL IV ONE; -NS 100 ML (IVPB) BAG IV ONE
--- NOTE | 2019-02-26 10:54 | Diagnostic Imaging Report ---
PROCEDURE: MR angiography of the brain without the use of contrast. TECHNIQUE: 3D [id number] non contrast enhanced MR angiography of the head was performed. A source data was reformatted into rotating MIP projections. INDICATION: Prior history of stroke and report of previous intracranial hemorrhage. COMPARISON: Prior CT head from February 16, 2019 CTA of the head and neck from December 08, 2017. FINDINGS: There is appropriate flow related enhancement within the intracranial segments of the internal carotid arteries. There appears to be moderate narrowing of the right clinoid segment of the internal carotid artery due to atherosclerotic disease. There is minimal narrowing of the left intracranial ICA. There is appropriate flow evident within the bilateral M1 segments of the middle cerebral arteries with no evidence of an occluded M2 branch. There is a hypoplastic right A1 segment with both the A2 segments filling from the left. Within the posterior circulation, the vertebral arteries are not entirely included within the [id number]-bulg. 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 There is no significant narrowing of the basilar artery. The superior cerebellar arteries are patent. Left [employer] demonstrates mild atherosclerotic disease. There is a origin of the right posterior cerebral artery. There are no findings of intracranial aneurysm formation. IMPRESSION: 1. MRA demonstrates no evidence of large vessel occlusion. There is moderate atherosclerotic narrowing of the clinoid segment of the right internal carotid artery. There is minimal atherosclerotic disease within the left carotid and mild atherosclerotic irregularity present within the left posterior cerebral artery. There are anatomical variations as described above. There are no findings of aneurysm formation. Dictated by: Dictated on workstation # [id number]
--- NOTE | 2019-02-26 10:54 | Diagnostic Imaging Report ---
PROCEDURE: MR angiography neck without contrast. TECHNIQUE: Non contrast enhanced MR angiography of the neck was performed. Source data was reformatted into rotating MIP projections. INDICATION: MR angiogram of the neck without contrast. History of stroke and reported history of prior intracranial hemorrhage. COMPARISON: Correlation is made with a previous CT angiogram from 12/08/2017. FINDINGS: Examination confirms antegrade flow within both of the cervical carotid arteries and within both of the vertebral arteries. The left vertebral artery is dominant. The origins of the great vessels arising from the arch are not well delineated on this examination but there are no gross findings of high-grade stenosis. There is no evidence to suggests significant stenosis at the carotid bifurcations. There are no caliber changes evident within the carotid arteries or vertebral arteries within the neck to suggest dissection. IMPRESSION: 1. No MR angiographic evidence of high-grade carotid stenosis or findings of dissection. 2. Vertebral arteries also are patent with antegrade flow. The left vertebral artery is dominant. Dictated by: Dictated on workstation # [id number]
== END ==
LOC: RAD 08:13
PROVIDERS: ATTEND Physician Assistant
DX: I65.21 Occlusion and stenosis of right carotid artery (principal); R51 Headache; R44.0 Auditory hallucinations; Z86.73 Personal history of transient ischemic attack (TIA), and cerebral infarction without residual deficits; Z86.79 Personal history of other diseases of the circulatory system
CPT/HCPCS: 70544; 70547

== ENCOUNTER 2019-04-21 13:43 | Emergency (ER) | payer MEDICARE ==
[~2019-04-21] VITALS: Ht 183 cm; Wt 57.0 kg
[~2019-04-21 13:43] MED LIST changes: -CATHETER FLUSH 10 ML SYR IV PRN; -GADOBUTROL 7.5 MMOL/7.5 ML (GADAVIST) VIAL IV ONE
[2019-04-21] MEDS ORDERED: ASPIRIN 81 MG CHEW (CHILDREN'S ASA) PO ONE (14:00)
[2019-04-21 14:01] LABS: BASOPHILS % (AUTO) 0 % (0-10); EOSINOPHILS # (AUTO) 0.4 10^3/uL (0.0-0.3); EOSINOPHILS % (AUTO) 5 % (0-10); HEMATOCRIT 38 % (40-54); HEMOGLOBIN 12.5 G/DL (13.3-17.7); LYMPHOCYTES # (AUTO) 1.8 X 10^3 (1.0-4.0); LYMPHOCYTES % (AUTO) 25 % (12-44); MEAN CORPUSCULAR HEMOGLOBIN 32 PG (25-34); MEAN CORPUSCULAR HGB CONC 33 G/DL (32-36); MEAN CORPUSCULAR VOLUME 97 FL (80-99); MONOCYTES # (AUTO) 0.9 X 10^3 (0.0-1.0); MONOCYTES % (AUTO) 12 % (0-12); NEUTROPHILS # (AUTO) 4.4 X 10^3 (1.8-7.8); NEUTROPHILS % (AUTO) 59 % (42-75); PLATELET COUNT 319 10^3/uL (130-400); RED CELL DISTRIBUTION WIDTH 13.4 % (10.0-14.5); WHITE BLOOD COUNT 7.4 10^3/uL (4.3-11.0)
--- NOTE | 2019-04-21 14:17 | Diagnostic Imaging Report ---
INDICATION: Back pain. Time of exam 2:12 PM Correlation is made with prior chest from 04/14/2018. The heart size is stable. Lungs are clear. Pulmonary vascularity is normal. No infiltrate, effusion or pneumothorax is seen. IMPRESSION: No acute cardiopulmonary process is detected. Dictated by: Dictated on workstation # [id number]
[2019-04-21 14:19] LABS: FIBRIN DEGRADATION PRODUCTS 0.38 UG/ML (0.00-0.49); PROTHROMBIN TIME PATIENT 13.7 SEC (12.2-14.7)
[2019-04-21 14:20] LABS: ALANINE AMINOTRANSFERASE 20 U/L (0-55); ALBUMIN 4.4 GM/DL (3.2-4.5); ALKALINE PHOSPHATASE 98 U/L (40-136); BILIRUBIN,TOTAL 0.3 MG/DL (0.1-1.0); BUN/CREATININE RATIO 13; CALCIUM 9.6 MG/DL (8.5-10.1); CARBON DIOXIDE 22 MMOL/L (21-32); CHLORIDE 101 MMOL/L (98-107); CREATININE SERUM 1.12 MG/DL (0.60-1.30); GFR ESTIMATED > 60; GLUCOSE 96 MG/DL (70-105); MAGNESIUM 1.6 MG/DL (1.6-2.4); POTASSIUM 4.2 MMOL/L (3.6-5.0); SODIUM 134 MMOL/L (135-145)
--- NOTE | 2019-04-21 14:35 | ED Chest Pain ---
General Chief Complaint: Chest Pain Stated Complaint: CHEST PAIN Nursing Triage Note: PT STATES PAIN IN HIS BACK THAT FEELS THE SAME WHEN HE HAD PR. HX OF STENTS. PAIN STARTED ABOUT 1100 TODAY. NO CURRENT PAIN. Nursing Sepsis Screen: No Definite Risk Source: patient Exam Limitations: no limitations History of Present Illness Date Seen by Provider: Apr 21, 2019 Time Seen by Provider: 13:59 Initial Comments Here with report of acute episode of chest pain last night that went away and then came back at about 11 AM today. It lasted several minutes or longer and then went away currently is gone. States was quite severe. Actually states the chest pain was in his back and did not radiate but feels exactly like when he had his heart attack in required stents several years ago. Denies nausea, vomiting, sweating or weakness. Patient is significantly hard of hearing but able to communicate. Timing/Duration: intermittent, gone now, 12 hours Severity/Quality: moderate, aching Location: back Radiation: no radiation Activities at Onset: none Prior CP/Workup: cardiac cath, heart attack Modifying Factors: improves with rest ASA po BACON STRINGER: No NTG SL BACON STRINGER: No Associated Symptoms: No abdominal pain; back pain; No diaphoresis, No fatigue, No fever/chills, No nausea/vomiting, No shortness of breath, No weakness Allergies and Home Medications Allergies Coded Allergies: Hwkgvrd-Fed-Vav Reductase Inhibitor (Verified Allergy, Mild, ELEVATED LIVER ENZYMES, 08/06/17) gemfibrozil (Verified Allergy, Mild, NAUSEA, 08/06/17) codeine (Verified Allergy, Unknown, 08/06/17) Home Medications Aspirin 81 Mg Tab.chew, 81 MG PO Q48H, (Reported) Famotidine 20 Mg Tablet, 20 MG PO DAILY, (Reported) Ferrous Sulfate 325 Mg Tablet, 325 MG PO DAILY, (Reported) Levetiracetam 500 Mg Tablet, 500 MG PO DAILY, (Reported) Lisinopril 10 Mg Tablet, 5 MG PO DAILY, (Reported) TAKES 1/2 (10MG) TABLET Quetiapine Fumarate 25 Mg Tablet, 25 MG PO HS Prescribed by: ROD HURST on 04/11/18 1413 Patient Home Medication List Home Medication List Reviewed: Yes Review of Systems Review of Systems Constitutional: see HPI; No chills, No fever EENTM: No Symptoms Reported Respiratory: Denies Cough, Denies Shortness of Air Cardiovascular: Denies Irregular Heart Rate Gastrointestinal: No Symptoms Reported Genitourinary: No Symptoms Reported Musculoskeletal: back pain, muscle pain; No neck pain Skin: no symptoms reported Psychiatric/Neurological: No Symptoms Reported Endocrine: No Symptoms Reported All Other Systems Reviewed Negative Unless Noted: Yes Past Eayeblt-Ubdjhz-Xutaek Hx Past Med/Social Hx: Reviewed Nursing Past Med/Soc Hx Patient Social History Alcohol Use: Denies Use Recreational Drug Use: No Smoking Status: Never a Smoker 2nd Hand Smoke Exposure: No Recent Foreign Travel: No Contact w/Someone Who Travel: No Recent Infectious Disease Expo: No Recent Hopitalizations: No Physical Abuse: No Sexual Abuse: No Mistreated: No Fear: No Immunizations Up To Date Tetanus Booster (TDap): Unknown Date of Pneumonia Vaccine: Mar 30, 2017 Date of Influenza Vaccine: Jan 13, 2017 Seasonal Allergies Seasonal Allergies: No Past Medical History Surgeries: Yes Abdominal, Bowel Surgery, Cardiac, Coronary Stent, Neurological Respiratory: No Currently Using CPAP: No Currently Using BIPAP: No Cardiac: Yes (2 STENTS) Coronary Artery Disease, Heart Attack, Hypertension Neurological: Yes Seizure Disorder, Stroke, TIA Reproductive Disorders: No Sexually Transmitted Disease: No HIV/AIDS: No Genitourinary: No Gastrointestinal: Yes (RIGHT INGUINAL HERNIA AND BOWEL OBSTRUCTION 07/2017) Abdominal Hernia, Gastroesophageal Reflux, Obstructive Bowel Musculoskeletal: No Endocrine: No HEENT: Yes Loss of Vision: Denies Hearing Impairment: Hard of Hearing Cancer: No Psychosocial: Yes (auditory hallucinations) Integumentary: No Blood Disorders: No Adverse Reaction/Blood Tranf: No Family Medical History Reviewed Nursing Family Hx Unknown family medical history No Pertinent Family Hx, Hypertension Physical Exam Vital Signs Vital Signs - First Documented Capillary Refill : NONE Height, Weight, BMI Height: 6'0.00" Weight: 119lbs. 0.0oz. 53.450179lw; 17.00 BMI Method:Stated General Appearance: No Apparent Distress, WD/WN HEENT: PERRL/EOMI, Pharynx Normal Neck: Non Tender, Supple Respiratory: Lungs Clear, Normal Breath Sounds Cardiovascular: Regular Rate, Rhythm, No Murmur Gastrointestinal: Non Tender, Soft Extremity: Normal Inspection, Normal Range of Motion Neurologic/Psychiatric: Alert, Oriented x3 Skin: Normal Color, Warm/Dry Progress/Results/Core Measures Results/Orders Lab Results Laboratory Tests Test 04/21/19 13:50 04/21/19 15:45 Range/Units White Blood Count 7.4 4.3-11.0 10^3/uL Red Blood Count 3.90 L 4.35-5.85 10^6/uL Hemoglobin 12.5 L 13.3-17.7 G/DL Hematocrit 38 L 40-54 % Mean Corpuscular Volume 97 80-99 FL Mean Corpuscular Hemoglobin 32 25-34 PG Mean Corpuscular Hemoglobin Concent 33 32-36 G/DL Red Cell Distribution Width 13.4 10.0-14.5 % Platelet Count 319 130-400 10^3/uL Mean Platelet Volume 9.0 7.4-10.4 FL Neutrophils (%) (Auto) 59 42-75 % Lymphocytes (%) (Auto) 25 12-44 % Monocytes (%) (Auto) 12 0-12 % Eosinophils (%) (Auto) 5 0-10 % Basophils (%) (Auto) 0 0-10 % Neutrophils # (Auto) 4.4 1.8-7.8 X 10^3 Lymphocytes # (Auto) 1.8 1.0-4.0 X 10^3 Monocytes # (Auto) 0.9 0.0-1.0 X 10^3 Eosinophils # (Auto) 0.4 H 0.0-0.3 10^3/uL Basophils # (Auto) 0.0 0.0-0.1 10^3/uL Prothrombin Time 13.7 12.2-14.7 SEC INR Comment 1.0 0.8-1.4 Activated Partial Thromboplast Time 29 24-35 SEC D-Dimer 0.38 0.00-0.49 UG/ML Sodium Level 134 L 135-145 MMOL/L Potassium Level 4.2 3.6-5.0 MMOL/L Chloride Level 101 98-107 MMOL/L Carbon Dioxide Level 22 21-32 MMOL/L Anion Gap 11 5-14 MMOL/L Blood Urea Nitrogen 14 7-18 MG/DL Creatinine 1.12 0.60-1.30 MG/DL Estimat Glomerular Filtration Rate > 60 BUN/Creatinine Ratio 13 Glucose Level 96 70-105 MG/DL Calcium Level 9.6 8.5-10.1 MG/DL Corrected Calcium 9.3 8.5-10.1 MG/DL Magnesium Level 1.6 1.6-2.4 MG/DL Total Bilirubin 0.3 0.1-1.0 MG/DL Aspartate Amino Transf (AST/SGOT) 20 5-34 U/L Alanine Aminotransferase (ALT/SGPT) 20 0-55 U/L Alkaline Phosphatase 98 40-136 U/L Myoglobin 52.6 10.0-92.0 NG/ML Troponin I < 0.028 < 0.028 <0.028 NG/ML Total Protein 8.0 6.4-8.2 GM/DL Albumin 4.4 3.2-4.5 GM/DL My Orders Orders - NAVEED TAI MD Cbc With Automated Diff (04/21/19 13:47) Magnesium (04/21/19 13:47) Chest 1 View, Ap/Pa Only (04/21/19 13:47) Ekg Tracing (04/21/19 13:47) Comprehensive Metabolic Panel (04/21/19 13:47) Myoglobin Serum (04/21/19 13:47) Protime With Inr (04/21/19 13:47) Partial Thromboplastin Time (04/21/19 13:47) O2 (04/21/19 13:47) Monitor-Rhythm Ecg Trace Only (04/21/19 13:47) Lipid Panel (04/22/19 06:00) Ed Iv/Invasive Line Start (04/21/19 13:47) Troponin I (04/21/19 13:47) Aspirin Chewable Tablet (Baby Aspirin Ch (04/21/19 14:00) Fibrin Degradation Products (04/21/19 13:47) Troponin I (04/21/19 15:47) Medications Given in ED Current Medications Medications Dose Ordered Sig/Andrei Route Start Time Stop Time Status Last Admin Dose Admin Aspirin 324 mg ONCE ONCE PO 04/21/19 14:00 04/21/19 14:01 DC 04/21/19 14:04 324 MG Vital Signs/I&O 04/21/19 04/21/19 13:45 13:45 Temp 36.4 Pulse 71 Resp 20 B/P (MAP) 173/115 (134) Pulse Ox 98 O2 Delivery Room Air Room Air Blood Pressure Mean: 134 Progress Progress Note : Progress Note Seen and evaluated. IV, labs, EKG and chest x-ray ordered. ASA 324 mg by mouth. Toprol-XL 25 mg by mouth. Monitor patient. 1549: Patient remains pain free. Initial evaluation negative. We will repeat troponin now and see if there are changes. This is discussed with the patient who agrees. Monitor patient. 1733: Repeat troponin is negative. Patient still pain-free. Safe for discharge home at this point. Discharged home with return precautions. Patient verbalize understanding instructions and agreement with plan. Initial ECG Impression Date: Apr 21, 2019 Initial ECG Impression Time: 13:45 Initial ECG Rate: 73 Initial ECG Rhythm: Normal Sinus Comment Sinus rhythm with left ventricular hypertrophy. No evidence of ST elevation PR. Unchanged from previous of 04/14/18. Interpreted by me. Diagnostic Imaging Diagonstic Imaging: Xray Plain Films/CT/US/NM/MRI: chest Comments [facility] [place], [place] NAME: JUAN ALCARAZ [facility] REC#: [id number] PT STATUS: REG ER : 1940 PHYSICIAN: NAVEED TAI MD ADMIT DATE: 04/21/19/ER Draft Date of Exam:04/21/19 CHEST 1 VIEW, AP/PA ONLY INDICATION: Back pain. Time of exam 2:12 PM Correlation is made with prior chest from 04/14/2018. The heart size is stable. Lungs are clear. Pulmonary vascularity is normal. No infiltrate, effusion or pneumothorax is seen. IMPRESSION: No acute cardiopulmonary process is detected. Dictated on workstation # [id number] Dict: 04/21/19 1416 Trans: 04/21/19 1417 [facility] [id number] Interpreted by: TRAN BARNES MD Electronically signed by: Departure Impression Primary Impression: Chest pain Qualified Codes: R07.9 - Chest pain, unspecified Disposition: HOME, SELF-CARE Condition: Improved Departure-Patient Inst. Decision time for Depature: 17:36 Referrals: JAVIER GONZALEZ MD (PCP/Family) Primary Care Physician Patient Instructions: Chest Pain (DC) Add. Discharge Instructions: All discharge instructions reviewed with patient and/or family. Voiced understanding. Follow-up with your DrLuanne in one to 2 days for recheck and further evaluation. Return for chest pain, weakness, breathing problems or sweating with back pain or other concerns as needed. Continue home medications as previously prescribed. Copy Copies To 1: JAVIER GONZALEZ MD Copies To 2: REBECCA BURRELL MD FACP FACC CCDS NAVEED TAI MD Apr 21, 2019 14:34
[2019-04-21 17:54] VITALS: BP 150/96
== END 2019-04-21 17:54 | disposition home or self-care (01) ==
LOC: ER 13:43
DX: R07.9 Chest pain, unspecified (principal); I10 Essential (primary) hypertension; I25.2 Old myocardial infarction; I25.10 Atherosclerotic heart disease of native coronary artery without angina pectoris; G40.909 Epilepsy, unspecified, not intractable, without status epilepticus; K21.9 Gastro-esophageal reflux disease without esophagitis; Z86.73 Personal history of transient ischemic attack (TIA), and cerebral infarction without residual deficits; Z95.5 Presence of coronary angioplasty implant and graft; Z88.8 Allergy status to other drugs, medicaments and biological substances; Z88.5 Allergy status to narcotic agent; Z79.82 Long term (current) use of aspirin
CPT/HCPCS: 36415; 71045; 80053; 83735; 83874; 84484; 85025; 85379; 85610; 85730; 93005; 93041

== ENCOUNTER 2019-06-01 14:05 | Emergency (ER) | payer MEDICARE ==
[~2019-06-01] VITALS: Ht 178 cm; Wt 56.0 kg
--- NOTE | 2019-06-01 14:17 | ED General ---
General Stated Complaint: HALLUCINATIONS Source of Information: Patient, Caregiver History of Present Illness Date Seen by Provider: Jun 01, 2019 Time Seen by Provider: 14:17 Initial Comments 79-year-old male sent in by his primary care provider. Primary care provider requested a CT head, labs and a urine check. Patient has a history of hallucinations. Patient is having what the family says is a few worsening hallucinations over the last 4-5 days. However that has been waxing and waning. Possibly little bit worse at night. Patient has had some insomnia. Patient fell 4 days ago and possibly hit his head. There is a small abrasion on top of his head. He does not have a nausea or vomiting. Patient has no acute findings that are not consistent with a history of hallucinations. Allergies and Home Medications Allergies Coded Allergies: Vlsgwmv-Hoi-Tux Reductase Inhibitor (Verified Allergy, Mild, ELEVATED LIVER ENZYMES, 08/06/17) gemfibrozil (Verified Allergy, Mild, NAUSEA, 08/06/17) codeine (Verified Allergy, Unknown, 08/06/17) Home Medications Aspirin 81 Mg Tab.chew, 81 MG PO Q48H, (Reported) Famotidine 20 Mg Tablet, 20 MG PO DAILY, (Reported) Ferrous Sulfate 325 Mg Tablet, 325 MG PO DAILY, (Reported) Levetiracetam 500 Mg Tablet, 500 MG PO DAILY, (Reported) Lisinopril 10 Mg Tablet, 5 MG PO DAILY, (Reported) TAKES 1/2 (10MG) TABLET Quetiapine Fumarate 25 Mg Tablet, 25 MG PO HS Prescribed by: ROD HURST on 04/11/18 1413 Patient Home Medication List Home Medication List Reviewed: Yes Review of Systems Review of Systems Constitutional: No chills, No fever Respiratory: no symptoms reported Cardiovascular: no symptoms reported Gastrointestinal: no symptoms reported Musculoskeletal: no symptoms reported Skin: no symptoms reported Psychiatric/Neurological: See HPI Past Nyqtpst-Glyiko-Kcbxos Hx Past Med/Social Hx: Reviewed Nursing Past Med/Soc Hx Patient Social History 2nd Hand Smoke Exposure: No Recent Foreign Travel: No Contact w/Someone Who Travel: No Recent Hopitalizations: No Immunizations Up To Date Tetanus Booster (TDap): Unknown Date of Pneumonia Vaccine: Mar 30, 2017 Date of Influenza Vaccine: Jan 13, 2017 Seasonal Allergies Seasonal Allergies: No Past Medical History Surgeries: Yes Abdominal, Bowel Surgery, Cardiac, Coronary Stent, Neurological Respiratory: No Currently Using CPAP: No Currently Using BIPAP: No Cardiac: Yes (2 STENTS) Coronary Artery Disease, Heart Attack, Hypertension Neurological: Yes Seizure Disorder, Stroke, TIA Reproductive Disorders: No Sexually Transmitted Disease: No HIV/AIDS: No Genitourinary: No Gastrointestinal: Yes (RIGHT INGUINAL HERNIA AND BOWEL OBSTRUCTION 07/2017) Abdominal Hernia, Gastroesophageal Reflux, Obstructive Bowel Musculoskeletal: No Endocrine: No HEENT: Yes Loss of Vision: Denies Hearing Impairment: Hard of Hearing Cancer: No Psychosocial: Yes (auditory hallucinations) Integumentary: No Blood Disorders: No Adverse Reaction/Blood Tranf: No Family Medical History Unknown family medical history No Pertinent Family Hx, Hypertension Physical Exam Vital Signs Vital Signs - First Documented 06/01/19 14:18 Temp 36.5 Pulse 64 Resp 18 B/P (MAP) 154/91 (112) Pulse Ox 98 O2 Delivery Room Air Capillary Refill : Height, Weight, BMI Height: 6'0.00" Weight: 119lbs. 0.0oz. 53.049375lm; 17.00 BMI Method:Stated General Appearance: No Apparent Distress, WD/WN HEENT: Other (small abrasion on top of his head) Neck: Non Tender, Supple Respiratory: Chest Non Tender, Lungs Clear, Normal Breath Sounds Cardiovascular: No Edema Gastrointestinal: Non Tender, Soft Extremity: Normal Capillary Refill Neurologic/Psychiatric: Alert, Oriented x3, Normal Mood/Affect, service desk lead II-XII Norm as Tested Skin: Normal Color, Warm/Dry Progress/Results/Core Measures Suspected Sepsis SIRS Temperature: Pulse: Respiratory Rate: Laboratory Tests 06/01/19 14:35: White Blood Count 6.0 Blood Pressure / Mean: Laboratory Tests 06/01/19 14:35: Creatinine 0.88, Platelet Count 273, Total Bilirubin 0.3 Results/Orders Lab Results Laboratory Tests Test 06/01/19 14:25 06/01/19 14:35 Range/Units Urine Color YELLOW Urine Clarity CLEAR Urine pH 6.0 5-9 Urine Specific Guin <=1.005 1.016-1.022 Urine Protein NEGATIVE NEGATIVE Urine Glucose (UA) NEGATIVE NEGATIVE Urine Ketones NEGATIVE NEGATIVE Urine Nitrite NEGATIVE NEGATIVE Urine Bilirubin NEGATIVE NEGATIVE Urine Urobilinogen 0.2 < = 1.0 MG/DL Urine Leukocyte Esterase NEGATIVE NEGATIVE Urine RBC (Auto) NEGATIVE NEGATIVE Urine RBC NONE /HPF Urine WBC RARE /HPF Urine Crystals NONE /LPF Urine Bacteria NEGATIVE /HPF Urine Casts NONE /LPF Urine Mucus NEGATIVE /LPF Urine Culture Indicated NO Urine Opiates Screen NEGATIVE NEGATIVE Urine Oxycodone Screen NEGATIVE NEGATIVE Urine Methadone Screen NEGATIVE NEGATIVE Urine Propoxyphene Screen NEGATIVE NEGATIVE Urine Barbiturates Screen NEGATIVE NEGATIVE Ur Tricyclic Antidepressants Screen NEGATIVE NEGATIVE Urine Phencyclidine Screen NEGATIVE NEGATIVE Urine Amphetamines Screen NEGATIVE NEGATIVE Urine Methamphetamines Screen NEGATIVE NEGATIVE Urine Benzodiazepines Screen NEGATIVE NEGATIVE Urine Cocaine Screen NEGATIVE NEGATIVE Urine Cannabinoids Screen NEGATIVE NEGATIVE White Blood Count 6.0 4.3-11.0 10^3/uL Red Blood Count 3.64 L 4.35-5.85 10^6/uL Hemoglobin 11.8 L 13.3-17.7 G/DL Hematocrit 35 L 40-54 % Mean Corpuscular Volume 96 80-99 FL Mean Corpuscular Hemoglobin 32 25-34 PG Mean Corpuscular Hemoglobin Concent 34 32-36 G/DL Red Cell Distribution Width 13.7 10.0-14.5 % Platelet Count 273 130-400 10^3/uL Mean Platelet Volume 8.5 7.4-10.4 FL Neutrophils (%) (Auto) 63 42-75 % Lymphocytes (%) (Auto) 23 12-44 % Monocytes (%) (Auto) 12 0-12 % Eosinophils (%) (Auto) 2 0-10 % Basophils (%) (Auto) 0 0-10 % Neutrophils # (Auto) 3.8 1.8-7.8 X 10^3 Lymphocytes # (Auto) 1.4 1.0-4.0 X 10^3 Monocytes # (Auto) 0.7 0.0-1.0 X 10^3 Eosinophils # (Auto) 0.1 0.0-0.3 10^3/uL Basophils # (Auto) 0.0 0.0-0.1 10^3/uL Sodium Level 132 L 135-145 MMOL/L Potassium Level 4.1 3.6-5.0 MMOL/L Chloride Level 102 98-107 MMOL/L Carbon Dioxide Level 21 21-32 MMOL/L Anion Gap 9 5-14 MMOL/L Blood Urea Nitrogen 9 7-18 MG/DL Creatinine 0.88 0.60-1.30 MG/DL Estimat Glomerular Filtration Rate > 60 BUN/Creatinine Ratio 10 Glucose Level 116 H 70-105 MG/DL Calcium Level 8.7 8.5-10.1 MG/DL Corrected Calcium 8.6 8.5-10.1 MG/DL Magnesium Level 1.9 1.6-2.4 MG/DL Total Bilirubin 0.3 0.1-1.0 MG/DL Aspartate Amino Transf (AST/SGOT) 13 5-34 U/L Alanine Aminotransferase (ALT/SGPT) 14 0-55 U/L Alkaline Phosphatase 95 40-136 U/L Total Protein 7.3 6.4-8.2 GM/DL Albumin 4.1 3.2-4.5 GM/DL Serum Alcohol < 10 <10 MG/DL My Orders Orders - BUTLER,WAI L DO Ct Head Wo (06/01/19 14:17) Chest 1 View, Ap/Pa Only (06/01/19 14:17) Alcohol (06/01/19 14:17) Cbc With Automated Diff (06/01/19 14:17) Comprehensive Metabolic Panel (06/01/19 14:17) Drug Screen Stat (Urine) (06/01/19 14:17) Magnesium (06/01/19 14:17) Ua Culture If Indicated (06/01/19 14:17) Vital Signs/I&O 06/01/19 14:18 Temp 36.5 Pulse 64 Resp 18 B/P (MAP) 154/91 (112) Pulse Ox 98 O2 Delivery Room Air Capillary Refill : Progress Note : Time: 15:15 Progress Note Patient with no acute findings on labs or imaging. Patient with a history of hallucinations. Patient should follow-up with his primary care provider for further outpatient evaluation. Diagnostic Imaging Diagonstic Imaging: Xray, CT Comments No Acute findings on CT head or x-ray of chest. Reviewed: Reviewed by Me, Discussed w/Radiologist, Reviewed/Discussed Departure Impression Primary Impression: Hallucinations Disposition: 01 HOME, SELF-CARE Condition: Stable Departure-Patient Inst. Referrals: JAVIER GONZALEZ MD (PCP/Family) Primary Care Physician Add. Discharge Instructions: Follow-up with your primary care provider in the next couple days. Emergency department focuses on treating and ruling out life-threatening diseases. Whenever possible, a diagnosis is given. However, most patients are given an impression based on their history, physical exam, and workup during your brief time in the ER. Information about probable diagnosis and other educational material has been provided. Please take the time to read and understand this information. It is very important that you follow up with a physician as discussed during the visit today. Failure to adhere to your follow-up instructions may lead to severe disability, injury, or so please make sure to keep your appointments or obtain one as requested. Please keep in mind the emergency department is not designed to your primary care or "family doctor" and nonurgent issues are best evaluated by an outpatient physician WAI BUTLER DO Jun 01, 2019 14:17
[2019-06-01 14:37] LABS: BILIRUBIN,URINE NEGATIVE (NEGATIVE); CLARITY,URINE CLEAR; COLOR,URINE YELLOW; GLUCOSE, URINE (UA) NEGATIVE (NEGATIVE); KETONES,URINE NEGATIVE (NEGATIVE); LEUKOCYTE ESTERASE ,URINE NEGATIVE (NEGATIVE); NITRITE,URINE NEGATIVE (NEGATIVE); PROTEIN,URINE NEGATIVE (NEGATIVE)
[2019-06-01 14:43] LABS: BACTERIA,URINE NEGATIVE /HPF; WBC,URINE RARE /HPF
[2019-06-01 14:44] LABS: BASOPHILS % (AUTO) 0 % (0-10); EOSINOPHILS # (AUTO) 0.1 10^3/uL (0.0-0.3); EOSINOPHILS % (AUTO) 2 % (0-10); HEMATOCRIT 35 % (40-54); HEMOGLOBIN 11.8 G/DL (13.3-17.7); LYMPHOCYTES # (AUTO) 1.4 X 10^3 (1.0-4.0); LYMPHOCYTES % (AUTO) 23 % (12-44); MEAN CORPUSCULAR HEMOGLOBIN 32 PG (25-34); MEAN CORPUSCULAR HGB CONC 34 G/DL (32-36); MEAN CORPUSCULAR VOLUME 96 FL (80-99); MEAN PLATELET VOLUME 8.5 FL (7.4-10.4); MONOCYTES # (AUTO) 0.7 X 10^3 (0.0-1.0); MONOCYTES % (AUTO) 12 % (0-12); NEUTROPHILS # (AUTO) 3.8 X 10^3 (1.8-7.8); NEUTROPHILS % (AUTO) 63 % (42-75); PLATELET COUNT 273 10^3/uL (130-400); RED CELL DISTRIBUTION WIDTH 13.7 % (10.0-14.5)
[2019-06-01 14:50] LABS: AMPHETAMINE SCREEN, URINE NEGATIVE (NEGATIVE); BARBITURATE SCREEN URINE NEGATIVE (NEGATIVE); BENZODIAZEPINES SCREEN URINE NEGATIVE (NEGATIVE); CANNABINOID SCREEN, URINE NEGATIVE (NEGATIVE); COCAINE SCREEN URINE NEGATIVE (NEGATIVE); METHADONE STAT NEGATIVE (NEGATIVE); METHAMPHETAMINE SCREEN URINE S NEGATIVE (NEGATIVE); OPIATE SCREEN URINE NEGATIVE (NEGATIVE); OXYCODONE STAT NEGATIVE (NEGATIVE); PROPOXYPHENE STAT NEGATIVE (NEGATIVE); TRICYCLIC ANTIDEPRESSANTS SCRE NEGATIVE (NEGATIVE)
[2019-06-01 15:02] LABS: ALANINE AMINOTRANSFERASE 14 U/L (0-55); ALBUMIN 4.1 GM/DL (3.2-4.5); ALKALINE PHOSPHATASE 95 U/L (40-136); BILIRUBIN,TOTAL 0.3 MG/DL (0.1-1.0); BUN/CREATININE RATIO 10; CALCIUM 8.7 MG/DL (8.5-10.1); CARBON DIOXIDE 21 MMOL/L (21-32); CHLORIDE 102 MMOL/L (98-107); CREATININE SERUM 0.88 MG/DL (0.60-1.30); GFR ESTIMATED > 60; GLUCOSE 116 MG/DL (70-105); MAGNESIUM 1.9 MG/DL (1.6-2.4); POTASSIUM 4.1 MMOL/L (3.6-5.0); SODIUM 132 MMOL/L (135-145); TOTAL PROTEIN 7.3 GM/DL (6.4-8.2)
--- NOTE | 2019-06-01 15:16 | Diagnostic Imaging Report ---
INDICATION: Hallucinations. COMPARISON: 04/21/2019 FINDINGS: Single frontal view of the chest demonstrates normal heart size and pulmonary vascularity. The lungs are well aerated and clear. No large pleural effusion or pneumothorax is seen. The visualized osseous structures show no acute abnormalities. IMPRESSION: 1. No acute cardiopulmonary process. Dictated by: Dictated on workstation # [id number]
--- NOTE | 2019-06-01 15:32 | Diagnostic Imaging Report ---
PROCEDURE: CT head without contrast. TECHNIQUE: Multiple contiguous axial images were obtained through the brain without the use of intravenous contrast. Auto Exposure Controls were utilized during the CT exam to meet ALARA standards for radiation dose reduction. INDICATION: Hallucinations. FINDINGS: The previous CT head exam of 02/16/2019 noted postoperative changes consistent with a previous left parietal craniotomy. On this exam, the postsurgical changes involving the calvarium appear stable. There is no fracture or acute bony abnormality identified. There is no intracranial mass, shift of the midline, or hemorrhage to suggest an acute abnormality. There is no sign of an asymmetric hyperdense vessel. The left middle cerebral artery is somewhat dense compared to the right but this finding is no different than on the prior exam. The ventricles are stable in size. The senescent changes seen previously including cortical atrophy and periventricular encephalomalacia are again evident and no different. The orbits and sinuses were not visualized in their entirety. Where visualized, there is no acute abnormality. IMPRESSION: 1. There is no evidence for an acute intracranial abnormality. When compared to the previous study, there has been no significant change. 2. If clinical concern regarding an underlying abnormality persists, then MRI would be recommended for further study. 3. The postsurgical changes involving the left calvarium appear stable. 4. These results were discussed with Dr. Gonzalez in the ER. Dictated by: Dictated on workstation # [id number]
[2019-06-01 15:57] VITALS: BP 120/72
== END 2019-06-01 15:57 | disposition home or self-care (01) ==
LOC: EDUNIT# 14:05 → ER 14:06
DX: R44.3 Hallucinations, unspecified (principal); I10 Essential (primary) hypertension; I25.2 Old myocardial infarction; I25.10 Atherosclerotic heart disease of native coronary artery without angina pectoris; G40.909 Epilepsy, unspecified, not intractable, without status epilepticus; K21.9 Gastro-esophageal reflux disease without esophagitis; Z86.73 Personal history of transient ischemic attack (TIA), and cerebral infarction without residual deficits; Z95.5 Presence of coronary angioplasty implant and graft; Z88.5 Allergy status to narcotic agent; Z88.8 Allergy status to other drugs, medicaments and biological substances; Z79.82 Long term (current) use of aspirin
CPT/HCPCS: 36415; 70450; 71045; 80053; 80306; 80320; 81000; 83735; 85025

== ENCOUNTER → 2019-09-23 | Outpatient (CLI) | payer MEDICARE | LOC: CARD 08:13 | PROVIDERS: ATTEND Internal Medicine Cardiovascular Disease | DX: I08.1 Rheumatic disorders of both mitral and tricuspid valves (principal); I25.10 Atherosclerotic heart disease of native coronary artery without angina pectoris; I65.23 Occlusion and stenosis of bilateral carotid arteries; Z78.9 Other specified health status | CPT/HCPCS: 93306 ==

== ENCOUNTER → 2019-09-24 | Outpatient (CLI) | payer MEDICARE ==
[~2019-09-24] VITALS: Ht 183 cm; Wt 52.0 kg
[~2019-09-24] MED LIST changes: +CATHETER FLUSH 10 ML SYR IV PRN; +REGADENOSON 0.4 MG/5 ML SYR (LEXISCAN) IV ONE
[2019-09-24 09:03] VITALS: BP 142/99
--- NOTE | 2019-09-24 21:32 | STRESS TEST ---
DATE OF SERVICE: RESTING AND POST REGADENOSON TECHNETIUM-99M TETROFOSMIN SPECT CT IMAGING Baseline images were carried out after injection of 10.49 mCi of technetium-99m Tetrofosmin. This was followed by 0.4 mg Regadenoson and 29.4 mCi of technetium-99m Tetrofosmin for stress imaging. The electrocardiogram showed sinus rhythm with premature atrial contractions at baseline. The electrocardiogram did not change significantly with the Regadenoson infusion. The patient tolerated the procedure well. Review of images at rest and following stress does not indicate any significant perfusion defects consistent with significant myocardial ischemia or infarction. Gated images show a well preserved global left ventricular systolic function without significant regional wall motion abnormality. Left ventricular ejection fraction is calculated to be 40%, but appears subjectively to be somewhat higher than that. Left ventricular end diastolic volume is 71 mL. TID is absent (1.03). CONCLUSIONS: 1. No evidence of significant myocardial ischemia or infarction on this study. 2. No significant regional wall motion abnormality. 3. Left ventricular ejection fraction is calculated to be 40%, but it appears somewhat higher than that, subjectively. Job ID: [id number] DocumentID: [id number] Dictated Date: 09/24/2019 13:35:58 Automatic Glove Former Date: 09/24/2019 16:14:19 Dictated By: REBECCA BURRELL MD, MA, FACP, FACC,
== END ==
LOC: CARD 07:22
PROVIDERS: ATTEND Internal Medicine Cardiovascular Disease
DX: I25.10 Atherosclerotic heart disease of native coronary artery without angina pectoris (principal); I65.23 Occlusion and stenosis of bilateral carotid arteries; Z78.9 Other specified health status
CPT/HCPCS: 78452; 93017

== ENCOUNTER 2020-03-18 04:17 | Emergency (ER) | payer MEDICARE ==
[~2020-03-18] VITALS: Ht 182.8 cm; Wt 53.5 kg
[~2020-03-18 04:17] MED LIST changes: -CATHETER FLUSH 10 ML SYR IV PRN; -REGADENOSON 0.4 MG/5 ML SYR (LEXISCAN) IV ONE
[2020-03-18] MEDS ORDERED: FLEET ENEMA ADULT 1 EA BTL PR ONE ×2 (04:45→06:00)
[2020-03-18] MEDS ORDERED: LIDOCAINE UROJET 2% GEL 10 ML PKG TOP ONE (04:45)
--- NOTE | 2020-03-18 04:45 | ED GI ---
General Chief Complaint: Abdominal/GI Problems Stated Complaint: NO BOWEL MOVEMENT, SELF ENIMA,RECTAL BLEEDING Nursing Triage Note: TO ED VIA POV AND AMBULATORY TO ROOM 5 WITH C/O CONSTIPATION X1 WEEK. STATES HE TRIED AN ENEMA WITH NO RELIEF AND NOW HAS RECTAL BLEEDING. DENIES N/V. PT REPEATEDLY STATING "JUST GIVE ME A LAXATIVE!" PT VERY [place] AND POOR HISTORIAN. Sepsis Screen: No Definite Risk Source of Information: Patient (EXTREMELY POOR HISTORIAN AND VERY HARD OF HEARING), Old Records (ALL PMH IS FROM OLD RECORDS) History of Present Illness Date Seen by Provider: Mar 18, 2020 Time Seen by Provider: 04:27 Initial Comments PT ARRIVES VIA POV FROM HOME C/O CONSTIPATION--LAST BM WAS 1 WEEK AGO STATES HE USED A LAXATIVE, BUT CANNOT STATE WHAT KIND OR WHEN HE TOOK IT ALSO STATES HE TRIED AN ENEMA SOMETIME TONIGHT AND NOW HE IS HAVING RECTAL BLEEDING AFTER HE TRIED THE ENEMA WITHOUT RESULTS STATES "I GOT A TURD RIGHT HERE" ( POINTS TO RECTUM) "AND IT WON'T COME OUT" NO ABDOMINAL PAIN NO NAUSEA/VOMITING STATES HE HAS HAD CONSTIPATION, BUT NORMALLY TAKES A LAXATIVE AND HE IS FINE. HAS NOT SOUGHT CARE UNTIL TONIGHT PT IS UNABLE TO GIVE ANY OTHER RELIABLE INFORMATION PCP: DR. GONZALEZ GUIDE FOREIGN TOUR: DR. BURRELL Allergies and Home Medications Allergies Coded Allergies: Luunkra-Tsf-Lhw Reductase Inhibitor (Verified Allergy, Mild, ELEVATED LIVER ENZYMES, 08/06/17) gemfibrozil (Verified Allergy, Mild, NAUSEA, 08/06/17) codeine (Verified Allergy, Unknown, 08/06/17) Home Medications Aspirin 81 Mg Tab.chew, 81 MG PO Q48H, (Reported) Famotidine 20 Mg Tablet, 20 MG PO DAILY, (Reported) Ferrous Sulfate 325 Mg Tablet, 325 MG PO DAILY, (Reported) Levetiracetam 500 Mg Tablet, 500 MG PO DAILY, (Reported) Lisinopril 10 Mg Tablet, 5 MG PO DAILY, (Reported) TAKES 1/2 (10MG) TABLET Quetiapine Fumarate 25 Mg Tablet, 25 MG PO HS Prescribed by: ROD HURST on 04/11/18 1413 Patient Home Medication List Home Medication List Reviewed: Yes Review of Systems Review of Systems Constitutional: no symptoms reported Gastrointestinal: See HPI Past Lcuhdcz-Pscuwc-Hwcsay Hx Past Med/Social Hx: Reviewed and Corrections made Patient Social History Alcohol Use: Denies Use Recreational Drug Use: No Smoking Status: Never a Smoker 2nd Hand Smoke Exposure: No Recent Foreign Travel: No Contact w/Someone Who Travel: No Recent Infectious Disease Expo: No Recent Hopitalizations: No Physical Abuse: No Sexual Abuse: No Mistreated: No Fear: No Immunizations Up To Date Tetanus Booster (TDap): Unknown Date of Pneumonia Vaccine: Mar 30, 2017 Date of Influenza Vaccine: Jan 13, 2017 Seasonal Allergies Seasonal Allergies: No Past Medical History Surgeries: Yes (SEE BELOW) Abdominal, Bowel Surgery, Cardiac, Coronary Stent, Neurological Respiratory: No Currently Using CPAP: No Currently Using BIPAP: No Cardiac: Yes (2 STENTS) Coronary Artery Disease, Heart Attack, Hypertension Neurological: Yes (SPONTANEOUS SUBDURAL HEMATOMA WHILE ON ANTICOAGULANTS 2008-S/P SURGERY) Seizure Disorder, Stroke, TIA Reproductive Disorders: No Sexually Transmitted Disease: No HIV/AIDS: No Genitourinary: No Gastrointestinal: Yes (RIGHT INGUINAL HERNIA AND BOWEL OBSTRUCTION 07/2017) Abdominal Hernia, Gastroesophageal Reflux, Obstructive Bowel, Chronic Constipation Musculoskeletal: No Endocrine: No HEENT: Yes Loss of Vision: Denies Hearing Impairment: Hard of Hearing Cancer: No Psychosocial: Yes (AUDITORY HALLUCINATIONS) Integumentary: No Blood Disorders: No Adverse Reaction/Blood Tranf: No YES--NO REACTION Family Medical History Unknown family medical history No Pertinent Family Hx, Hypertension SOCIAL HISTORY: -ETOH--NONE -DRUGS--NONE -SMOKING--NEVER PAST SURGICAL HISTORY: -CARDIAC CATHS--STENTS X 2 IN 2004 -EVACUATION OF SUBDURAL HEMATOMA 2008 -RIGHT INGUINAL HERNIA REPAIR AND SURGERY FOR BOWEL OBSTRUCTION 08/07/17 Physical Exam Vital Signs Vital Signs - First Documented 03/18/20 04:25 Temp 36.0 Pulse 77 Resp 16 B/P (MAP) 95/51 (66) O2 Delivery Room Air Capillary Refill : Less Than 3 Seconds Height/Weight/BMI Height: 6'0.00" Weight: 119lbs. 0.0oz. [id number]; 16.00 BMI Method:Stated General Appearance: cachetic, other (EMACIATED, UNKEMPT. ) Cardiovascular: regular rate, rhythm Gastrointestinal: normal bowel sounds, non tender, soft Rectal: other (SMALL AMOUNT OF DRIED BLOOD AROUND ANUS AND ON BOXER SHORTS. NO ACTIVE BLEEDING. NO EXTERNAL HEMORRHOIDS, NO OBVIOUS EXTERNAL FISSURE. LARGE, VERY HARD STOOL IN RECTUM. ) Extremities: normal capillary refill Neurologic/Psychiatric: no motor/sensory deficits, alert Skin: warm/dry Progress/Results/Core Measures Results/Orders My Orders Orders - VICTORINA AVERY DO Acute Abd Series (03/18/20 04:29) Lidocaine 2% (Urojet) (Xylocaine Urojet) (03/18/20 04:45) Na Phos/Na Biphos Enema (Fleet Enema Wilder (03/18/20 04:45) Na Phos/Na Biphos Enema (Fleet Enema Wilder (03/18/20 06:00) Medications Given in ED Current Medications Medications Dose Ordered Sig/Andrei Route Start Time Stop Time Status Last Admin Dose Admin Lidocaine HCl 10 ml ONCE ONCE TOP 03/18/20 04:45 03/18/20 04:46 DC 03/18/20 05:16 10 ML Sodium Biphosphate/ Sodium Phosphate 1 ea ONCE ONCE WV 03/18/20 04:45 03/18/20 04:46 DC 03/18/20 05:16 1 EA Sodium Biphosphate/ Sodium Phosphate 1 ea ONCE ONCE WV 03/18/20 06:00 03/18/20 06:01 DC 03/18/20 05:55 1 EA Vital Signs/I&O 03/18/20 04:25 Temp 36.0 Pulse 77 Resp 16 B/P (MAP) 95/51 (66) O2 Delivery Room Air Blood Pressure Mean: 66 Progress Progress Note : Progress Note PT GIVEN FLEET'S ENEMAS X 2, WITH MANUAL DIS-IMPACTION, WITH GOOD RESULTS. PT DID HAVE SOME RECTAL BLEEDING AFTERWARD AND SMALL FISSURE NOW NOTED AT 12:00 Diagnostic Imaging Comments ABDOMEN XRAYS--LARGE RECTAL STOOL IMPACTION, WITH LARGE AMOUNT OF GAS AND STOOL IN COLON. NO OBSTRUCTION. PENDING RADIOLOGIST REVIEW Reviewed: Reviewed by Me Departure Impression Primary Impression: CHRONIC CONSTIPATION WITH FECAL IMPACTION Disposition: HOME, SELF-CARE Condition: Improved Departure-Patient Inst. Referrals: JAVIER GONZALEZ MD (PCP/Family) Primary Care Physician Patient Instructions: Constipation, Adult (DC), Fecal Impaction (DC) Add. Discharge Instructions: TAKE MIRALAX EVERY DAY--INCREASE TO 2-3 TIMES A DAY NEEDED IF YOU START GETTING CONSTIPATED AGAIN FOLLOW UP WITH YOUR DR ON FRIDAY IF NO BETTER All discharge instructions reviewed with patient and/or family. Voiced understanding. VICTORINA AVERY DO Mar 18, 2020 04:45
[2020-03-18 06:14] VITALS: BP 118/70
--- NOTE | 2020-03-18 06:41 | Diagnostic Imaging Report ---
EXAM: Acute abdomen series of 4:55 AM INDICATION: Abdominal pain FINDINGS: The heart size is within normal limits and stable when compared to 06/01/2019. There are chronic pulmonary artery changes evident but no sign of failure, pneumonia or of pleural effusion. There is no pneumoperitoneum identified either. There is gas in both the large and small bowel in a nonspecific fashion. There is no sign of a bowel obstruction. There does appear to be at least a moderate amount of fecal material throughout the colon and there may be a fecal impaction. There is no mass or organomegaly identified. The osseous structures are intact. IMPRESSION: 1. The bowel gas pattern is nonspecific. There is no acute abnormality identified. 2. There is a fair amount of fecal material throughout the colon. There may be a fecal impaction. Dictated by: Dictated on workstation # [id number]
== END 2020-03-18 06:40 | disposition home or self-care (01) ==
LOC: EDUNIT# 04:17 → ER 04:19
DX: K56.41 Fecal impaction (principal); I25.2 Old myocardial infarction; G40.909 Epilepsy, unspecified, not intractable, without status epilepticus; K21.9 Gastro-esophageal reflux disease without esophagitis; I10 Essential (primary) hypertension; Z86.73 Personal history of transient ischemic attack (TIA), and cerebral infarction without residual deficits; Z88.5 Allergy status to narcotic agent; Z88.8 Allergy status to other drugs, medicaments and biological substances; Z95.5 Presence of coronary angioplasty implant and graft; Z79.82 Long term (current) use of aspirin
CPT/HCPCS: 74022

== ENCOUNTER → 2021-05-31 | Outpatient (CLI) | payer MEDICARE ==
[~2021-05-31] MED LIST changes: -LISI10TA2 PO; +LISI10TA25 PO
--- NOTE | 2021-05-31 12:14 | Diagnostic Imaging Report ---
CLINICAL INDICATION: Patient with headaches and left arm numbness. Patient has history of hemorrhage. EXAM: Axial CT scan of the brain performed without IV contrast with sagittal and coronal reformatted images. Auto Exposure Controls were utilized during the CT exam to meet ALARA standards for radiation dose reduction. COMPARISON: Head CT without contrast dated 06/01/2019. FINDINGS: There is no evidence of acute cerebral infarct, intracranial hemorrhage, or gross mass effect. The brain parenchymal volume appears appropriate for patient's age. There is no significant change to the patchy and confluent areas of low-attenuation white matter changes involving both cerebral hemispheres, likely representing chronic small vessel ischemic disease. Small chronic ischemic area involving the left cerebellum is again seen. There is normal blackmon-white matter distinction. There is no significant midline shift or herniation. There is no evidence of hydrocephalus. The basal cisterns are unremarkable. Left skull craniotomy is again noted. Skull, extracranial soft tissue, and orbits are unremarkable. The paranasal sinuses are unremarkable. Temporal bones show no significant abnormality. IMPRESSION: Stable CT scan of the brain with no evidence of interval acute intracranial process. Dictated by: Dictated on workstation # [id number]
== END ==
LOC: RAD 12:00
PROVIDERS: ATTEND Internal Medicine
DX: R51.9 Headache, unspecified (principal); R20.0 Anesthesia of skin
CPT/HCPCS: 70450

== ENCOUNTER → 2022-08-22 | Outpatient (CLI) | payer MEDICARE | LOC: CARD 09:30 | PROVIDERS: ATTEND Nurse Practitioner Family | DX: I08.0 Rheumatic disorders of both mitral and aortic valves (principal) | CPT/HCPCS: 93306 ==

== ENCOUNTER → 2022-10-08 | Outpatient (CLI) | payer MEDICARE ==
[~2022-10-08] MED LIST changes: +CATHETER FLUSH 10 ML SYR IVP PRN; +REGADENOSON 0.4 MG/5 ML SYR (LEXISCAN) IV ONE
[2022-10-08 09:34] VITALS: BP 164/87
--- NOTE | 2022-10-10 12:25 | STRESS TEST ---
DATE OF SERVICE: 10/08/2022 RESTING AND POST REGADENOSON TECHNETIUM-99M TETROFOSMIN SPECT CT IMAGING ORDERING PHYSICIAN: Camryn Varghese APRN. PRIMARY PHYSICIAN: Dr. Morrison. CLINICAL DIAGNOSIS: Coronary artery disease. Baseline images were carried out after injection of 10.27 mCi technetium-99m tetrofosmin. This was followed by 0.4 mg regadenoson and 30.6 mCi of technetium-99m tetrofosmin for stress imaging. The electrocardiogram showed sinus rhythm at baseline. It did not change significantly with regadenoson infusion. The patient tolerated the procedure well. Review of images at rest and following stress does not indicate any significant perfusion defects consistent with myocardial ischemia or infarction. Gated images show normal global left ventricular systolic function without distinct regional wall motion. Left ventricular ejection fraction is calculated to be 46%, but appears somewhat higher subjectively. CONCLUSIONS: 1. No evidence of any significant myocardial ischemia or infarction on the study. 2. Normal regional wall motion. 3. Left ventricular ejection fraction calculated to be 46%, but appears somewhat higher, subjectively. Job ID: [id number] DocumentID: [id number] Dictated Date: 10/10/2022 10:13:24 Power Builder Developer Date: 10/10/2022 12:23:00 Dictated By: REBECCA BURRELL MD; PAYAM; FACP; FACC;
== END ==
LOC: CARD 08:02
PROVIDERS: ATTEND Nurse Practitioner Family
DX: I25.10 Atherosclerotic heart disease of native coronary artery without angina pectoris (principal)
CPT/HCPCS: 78452; 93017

== ENCOUNTER 2022-10-12 12:11 | Emergency (ER) | payer MEDICARE ==
[~2022-10-12] VITALS: Ht 180 cm; Wt 54.0 kg
[~2022-10-12 12:11] MED LIST changes: -CATHETER FLUSH 10 ML SYR IVP PRN; -REGADENOSON 0.4 MG/5 ML SYR (LEXISCAN) IV ONE
--- NOTE | 2022-10-12 12:51 | ED General ---
General Chief Complaint: Trauma-Non Activation Stated Complaint: FALLING/ HALLUCINATING Nursing Triage Note: SEE TRIAGE Source of Information: Patient Exam Limitations: No Limitations History of Present Illness Date Seen by Provider: Oct 12, 2022 Time Seen by Provider: 12:47 Initial Comments Patient is a 82-year-old male with a history of coronary artery disease, early dementia who presents to ED for increased confusion. According to son at bedside who patient lives with states that patient started to be confused around yesterday morning. Patient had a stress test performed this past Friday. Patient slept for 24 hours. He got up on went to his garden, rode his bicycle and walked and felt fine. Went to bed woke up yesterday morning and has not been the same. According to son patient has been having visual and auditory hallucinations. Patient has been grabbing at the air. Patient has been talking to people next to him. Patient fell around 5:00 and 6:00 this morning hitting the right side of his head. Patient is on a blood thinner. Son heard patient fall and went to evaluate. Patient potentially fell and hit the wall versus the [place]. Patient did not sleep overnight. Patient is typically self efficient. Rides his bike and works in the garden. History of similar symptoms in the past resolved on its own. Reports frequent urination. Denies vomiting, diarrhea, cough, abdominal pain. Able to ambulate but does have unsteady gait. No history of strokes. Location Injury Occurred: HOME Allergies and Home Medications Allergies Coded Allergies: Jcldmup-IVV-BrM Reductase Inhibitor (Verified Allergy, Mild, ELEVATED LIVER ENZYMES, 08/06/17) gemfibrozil (Verified Allergy, Mild, NAUSEA, 08/06/17) codeine (Verified Allergy, Unknown, 08/06/17) Patient Home Medication List Home Medication List Reviewed: Yes Aspirin (Aspirin) 81 Mg Tab.chew, 81 MG PO Q48H, (Reported) Entered as Reported by: KAMILLE PLATT on 05/31/16 0835 Famotidine (Acid Software Qa System Specialist (FAMOTIDINE)) 20 Mg Tablet, 20 MG PO DAILY, (Reported) Entered as Reported by: CHAY ALMODOVAR on 08/06/17 0916 Ferrous Sulfate (Ferrous Sulfate) 325 Mg Tablet, 325 MG PO DAILY, (Reported) Entered as Reported by: CHAY ALMODOVAR on 08/06/17 0916 Levetiracetam (Levetiracetam) 500 Mg Tablet, 500 MG PO DAILY, (Reported) Entered as Reported by: CHAY ALMODOVAR on 08/06/17 0916 Lisinopril (Lisinopril) 10 Mg Tablet, 5 MG PO DAILY, (Reported) Entered as Reported by: KAMILLE PLATT on 06/05/15 1035 Quetiapine Fumarate (Seroquel) 25 Mg Tablet, 25 MG PO HS Prescribed by: ROD HURST on 04/11/18 1413 Quetiapine Fumarate (Seroquel) 25 Mg Tablet, 25 MG PO HS Prescribed by: ALBERTA HARKINS on 10/12/22 1732 Review of Systems Review of Systems Constitutional: No chills, No fever, No malaise, No weakness EENTM: No blurred vision, No double vision Respiratory: No cough Gastrointestinal: No abdominal pain, No diarrhea, No nausea, No vomiting Genitourinary: No decreased output, No discharge Musculoskeletal: No back pain, No joint pain Skin: No change in color, No change in hair/nails Psychiatric/Neurological: Other (Auditory and visual elucidation's., Altered mental status) All Other Systems Reviewed Negative Unless Noted: Yes Past Rpgucri-Ajtaak-Iuwwwa Hx Patient Social History Tobacco Use?: No Substance use?: No Alcohol Use?: No Pt feels they are or have been: No Immunizations Up To Date Tetanus Booster (TDap): Unknown Seasonal Allergies Seasonal Allergies: No Past Medical History Surgery/Hospitalization HX: EARLY STAGE DEMENTIA Surgeries: Yes (SEE BELOW) Abdominal, Bowel Surgery, Cardiac, Coronary Stent, Neurological Respiratory: No Currently Using CPAP: No Currently Using BIPAP: No Cardiac: Yes (2 STENTS) Coronary Artery Disease, Heart Attack, Hypertension Neurological: Yes (SPONTANEOUS SUBDURAL HEMATOMA WHILE ON ANTICOAGULANTS 2008- S/P SURGERY) Seizure Disorder, Stroke, TIA Reproductive Disorders: No Sexually Transmitted Disease: No HIV/AIDS: No Genitourinary: No Gastrointestinal: Yes (RIGHT INGUINAL HERNIA AND BOWEL OBSTRUCTION 07/2017) Abdominal Hernia, Gastroesophageal Reflux, Obstructive Bowel, Chronic Constipation Musculoskeletal: No Endocrine: No HEENT: Yes Loss of Vision: Denies Hearing Impairment: Hard of Hearing Cancer: No Psychosocial: Yes (AUDITORY HALLUCINATIONS) Integumentary: No Blood Disorders: No Adverse Reaction/Blood Tranf: No Family Medical History Unknown family medical history No Pertinent Family Hx, Hypertension SOCIAL HISTORY: -ETOH--NONE -DRUGS--NONE -SMOKING--NEVER PAST SURGICAL HISTORY: -CARDIAC CATHS--STENTS X 2 IN 2005 -EVACUATION OF SUBDURAL HEMATOMA 2008 -RIGHT INGUINAL HERNIA REPAIR AND SURGERY FOR BOWEL OBSTRUCTION 08/07/17 Physical Exam Vital Signs Vital Signs - First Documented 10/12/22 12:25 Temp 36.4 Pulse 75 Resp 18 B/P (MAP) 153/131 (138) Pulse Ox 98 Capillary Refill : Less Than 3 Seconds Height, Weight, BMI Height: 6'0.00" Weight: 119lbs. 0.0oz. 53.732565qt; 16.00 BMI Method:Stated General Appearance: Other (Confused) Eyes: Bilateral Eye Normal Inspection, Bilateral Eye PERRL, Bilateral Eye EOMI HEENT: PERRL/EOMI, TMs Normal Neck: Full Range of Motion, Normal Inspection, Non Tender, Supple Respiratory: Chest Non Tender, Lungs Clear, Normal Breath Sounds, No Accessory Muscle Use, No Respiratory Distress Cardiovascular: Regular Rate, Rhythm, No Edema, No Gallop, No JVD Gastrointestinal: Normal Bowel Sounds, No Organomegaly, No Pulsatile Mass Extremity: Normal Capillary Refill, Normal Inspection, Normal Range of Motion Neurologic/Psychiatric: Abnormal Gait, Disoriented, Other (Visual hallucination) Skin: Normal Color, Warm/Dry Progress/Results/Core Measures Suspected Sepsis SIRS Temperature: Pulse: 75 Respiratory Rate: 18 Laboratory Tests 10/12/22 13:05: White Blood Count 5.3 Blood Pressure 153 /131 Mean: 138 Laboratory Tests 10/12/22 13:05: Creatinine 0.86, INR Comment 1.1, Platelet Count 197, Total Bilirubin 0.5 Results/Orders Lab Results Laboratory Tests Test 10/12/22 13:05 10/12/22 14:00 Range/Units White Blood Count 5.3 4.3-11.0 10^3/uL Red Blood Count 3.04 L 4.30-5.52 10^6/uL Hemoglobin 11.6 L 13.3-17.7 g/dL Hematocrit 34 L 40-54 % Mean Corpuscular Volume 111 H 80-99 fL Mean Corpuscular Hemoglobin 38 H 25-34 pg Mean Corpuscular Hemoglobin Concent 35 32-36 g/dL Red Cell Distribution Width 14.4 10.0-14.5 % Platelet Count 197 130-400 10^3/uL Mean Platelet Volume 9.6 9.0-12.2 fL Immature Granulocyte % (Auto) 0 % Neutrophils (%) (Auto) 64 42-75 % Lymphocytes (%) (Auto) 24 12-44 % Monocytes (%) (Auto) 11 0-12 % Eosinophils (%) (Auto) 1 0-10 % Basophils (%) (Auto) 0 0-10 % Neutrophils # (Auto) 3.4 1.8-7.8 10^3/uL Lymphocytes # (Auto) 1.3 1.0-4.0 10^3/uL Monocytes # (Auto) 0.6 0.0-1.0 10^3/uL Eosinophils # (Auto) 0.0 0.0-0.3 10^3/uL Basophils # (Auto) 0.0 0.0-0.1 10^3/uL Immature Granulocyte # (Auto) 0.0 0.0-0.1 10^3/uL Prothrombin Time 14.6 12.2-14.7 SEC INR Comment 1.1 0.8-1.4 Activated Partial Thromboplast Time 29 24-35 SEC Sodium Level 133 L 135-145 MMOL/L Potassium Level 3.8 3.6-5.0 MMOL/L Chloride Level 99 98-107 MMOL/L Carbon Dioxide Level 25 21-32 MMOL/L Anion Gap 9 5-14 MMOL/L Blood Urea Nitrogen 7 7-18 MG/DL Creatinine 0.86 0.60-1.30 MG/DL Estimat Glomerular Filtration Rate 88 BUN/Creatinine Ratio 8 Glucose Level 145 H 70-105 MG/DL Calcium Level 8.8 8.5-10.1 MG/DL Corrected Calcium 9.0 8.5-10.1 MG/DL Total Bilirubin 0.5 0.1-1.0 MG/DL Aspartate Amino Transf (AST/SGOT) 21 5-34 U/L Alanine Aminotransferase (ALT/SGPT) 20 0-55 U/L Alkaline Phosphatase 140 H 40-136 U/L Troponin I < 0.028 <0.028 NG/ML Total Protein 7.5 6.4-8.2 GM/DL Albumin 3.7 3.2-4.5 GM/DL Lipase 17 8-78 U/L Serum Alcohol < 10 <10 MG/DL Urine Color YELLOW Urine Clarity CLEAR Urine pH 6.0 5-9 Urine Specific [place] <=1.005 1.016-1.022 Urine Protein NEGATIVE NEGATIVE Urine Glucose (UA) NEGATIVE NEGATIVE Urine Ketones NEGATIVE NEGATIVE Urine Nitrite NEGATIVE NEGATIVE Urine Bilirubin NEGATIVE NEGATIVE Urine Urobilinogen 0.2 < = 1.0 MG/DL Urine Leukocyte Esterase NEGATIVE NEGATIVE Urine RBC (Auto) NEGATIVE NEGATIVE Urine RBC NONE /HPF Urine WBC NONE /HPF Urine Squamous Epithelial Cells NONE /HPF Urine Crystals NONE /LPF Urine Bacteria NEGATIVE /HPF Urine Casts NONE /LPF Urine Mucus NEGATIVE /LPF Urine Culture Indicated NO Urine Opiates Screen NEGATIVE NEGATIVE Urine Oxycodone Screen NEGATIVE NEGATIVE Urine Methadone Screen NEGATIVE NEGATIVE Urine Propoxyphene Screen NEGATIVE NEGATIVE Urine Barbiturates Screen NEGATIVE NEGATIVE Ur Tricyclic Antidepressants Screen NEGATIVE NEGATIVE Urine Phencyclidine Screen NEGATIVE NEGATIVE Urine Amphetamines Screen NEGATIVE NEGATIVE Urine Methamphetamines Screen NEGATIVE NEGATIVE Urine Benzodiazepines Screen NEGATIVE NEGATIVE Urine Cocaine Screen NEGATIVE NEGATIVE Urine Cannabinoids Screen NEGATIVE NEGATIVE My Orders Orders - IRIS MARTINEZ PA Ct Head/Cervical Spine Wo (10/12/22 12:43) Cbc With Automated Diff (10/12/22 12:44) Comprehensive Metabolic Panel (10/12/22 12:44) Lipase (10/12/22 12:44) Troponin I [place] (10/12/22 12:44) Partial Thromboplastin Time (10/12/22 12:44) Protime With Inr (10/12/22 12:44) Chest 1 View, Ap/Pa Only (10/12/22 12:44) Ua Culture If Indicated (10/12/22 12:44) Alcohol (10/12/22 12:44) Drug Screen Stat (Urine) (10/12/22 12:44) Vital Signs/I&O 10/12/22 10/12/22 12:25 17:42 Temp 36.4 Pulse 75 64 Resp 18 18 B/P (MAP) 153/131 (138) 160/93 Pulse Ox 98 95 Capillary Refill : Less Than 3 Seconds Blood Pressure Mean: 138 Departure Communication (PCP) Reviewed previous ER visits, H&P, lab testing. Patient lives at home with son. Patient is for the most part self efficient. Rides his bike. Gardens during the day. Increased confusion since yesterday. Visual and auditory hallucinations accoridng to son who lives with patient. Patient has not slept over the past 24 hours. History of similar symptoms in the past. Patient is not on anticoagulants. GCS of 15. Patient with active hallucinations. Difficulty obtaining history from patient. Most of the history was obtained from son at bedside. Reviewed previous ER visits, H&P, lab testing. Patient has been seen in 2019 as well as 2019 for similar symptoms. Patient was hospitalized at [facility] for 1 day with improvement of his symptoms last year. Patient disoriented on arrival. Patient with active hallucinations. Patient is talking to people that are not there as well as looking for people underneath his bed. Generalized lab work, CT scan of the head, chest x-ray, urinalysis was ordered. White blood count 5.3. Hemoglobin 11.6. Normal platelets. Chemistry grossly unremarkable besides sodium 133. Urinalysis without strong evidence of infection. Alcohol level normal. Drug screen unremarkable. Does not drink during the day. CT scan of the head and cervical spine negative for acute abnormality. No evidence of mass. chest x- ray unremarkable chest. Patient was not combative. Concern for patient's safety at home. Patient did fall twice this morning and he did hit the right side of his head. Contacted Dr. Yap hospitalist regarding admission for observation. She suggests contacting [facility] [place]. Patient was evaluated here by [facility] . Since patient does not have a DPOA and he was refusing admission patient did not meet their criteria. Discussed with son other potential options such as admitted to our hospital with observation and medication treatment. He states in the past they have given Seroquel which helped with his mood and sleep and symptoms eventually did improve. He is requesting a few days worth of the Seroquel at this time. He will continue monitoring patient at home. patient has taken 25 mg of seroquel in the past. Will discharge with medication. If continue worsening symptoms strongly recommend returning back to ED. Family's concern for early dementia. No evidence of stroke, infectious etiology. Patient vital signs stable. Impression Primary Impression: Visual hallucinations Disposition: 01 HOME, SELF-CARE Condition: Stable Departure-Patient Inst. Decision time for Depature: 17:31 Referrals: JAVIER GONZALEZ MD (PCP/Family) Primary Care Physician Patient Instructions: Delirium (Confusion) (DC) Add. Discharge Instructions: Recommend taking medication as prescribed. If any worsening symptoms return back to ED. All discharge instructions reviewed with patient and/or family. Voiced understanding. Scripts Quetiapine Fumarate (Seroquel) 25 Mg Tablet 25 MG PO HS, #10 TAB Prov: IRIS MARTINEZ 10/12/22 IRIS MARTINEZ Oct 12, 2022 12:51
[2022-10-12 13:22] LABS: BASOPHILS % (AUTO) 0 % (0-10); EOSINOPHILS % (AUTO) 1 % (0-10); HEMATOCRIT 34 % (40-54); HEMOGLOBIN 11.6 g/dL (13.3-17.7); LYMPHOCYTES # (AUTO) 1.3 10^3/uL (1.0-4.0); LYMPHOCYTES % (AUTO) 24 % (12-44); MEAN CORPUSCULAR HEMOGLOBIN 38 pg (25-34); MEAN CORPUSCULAR HGB CONC 35 g/dL (32-36); MEAN CORPUSCULAR VOLUME 111 fL (80-99); MEAN PLATELET VOLUME 9.6 fL (9.0-12.2); MONOCYTES # (AUTO) 0.6 10^3/uL (0.0-1.0); MONOCYTES % (AUTO) 11 % (0-12); NEUTROPHILS # (AUTO) 3.4 10^3/uL (1.8-7.8); NEUTROPHILS % (AUTO) 64 % (42-75); PLATELET COUNT 197 10^3/uL (130-400); WHITE BLOOD COUNT 5.3 10^3/uL (4.3-11.0)
--- NOTE | 2022-10-12 13:23 | Diagnostic Imaging Report ---
INDICATION: confusion TECHNIQUE: Single-view chest at 12:56 p.m. CORRELATION STUDY: 06/01/2019. FINDINGS: The heart size, mediastinal configuration and pulmonary vascularity are within normal limits. Lung goodson are hyperinflated. Unchanged mildly elevated right diaphragm. A few calcified granulomas. IMPRESSION: 1. Stable chest demonstrates no acute abnormality. Dictated by: Dictated on workstation # [id number]
[2022-10-12 13:30] LABS: ALBUMIN 3.7 GM/DL (3.2-4.5)
[2022-10-12 13:31] LABS: CHLORIDE 99 MMOL/L (98-107); INR 1.1 (0.8-1.4); POTASSIUM 3.8 MMOL/L (3.6-5.0); PROTHROMBIN TIME PATIENT 14.6 SEC (12.2-14.7); SODIUM 133 MMOL/L (135-145)
[2022-10-12 13:32] LABS: CALCIUM 8.8 MG/DL (8.5-10.1)
[2022-10-12 13:33] LABS: GLUCOSE 145 MG/DL (70-105); TOTAL PROTEIN 7.5 GM/DL (6.4-8.2)
[2022-10-12 13:34] LABS: CARBON DIOXIDE 25 MMOL/L (21-32)
[2022-10-12 13:35] LABS: BILIRUBIN,TOTAL 0.5 MG/DL (0.1-1.0)
[2022-10-12 13:37] LABS: ALKALINE PHOSPHATASE 140 U/L (40-136); CREATININE SERUM 0.86 MG/DL (0.60-1.30); GFR ESTIMATED 88
[2022-10-12 13:38] LABS: BUN/CREATININE RATIO 8
[2022-10-12 13:40] LABS: ALANINE AMINOTRANSFERASE 20 U/L (0-55); LIPASE 17 U/L (8-78)
--- NOTE | 2022-10-12 13:51 | Diagnostic Imaging Report ---
PROCEDURE: CT head and CT cervical spine without contrast. TECHNIQUE: Multiple contiguous axial images were obtained through the brain and cervical spine without the use of intravenous contrast. Sagittal and coronal reformations through the cervical spine were then performed. Auto Exposure Controls were utilized during the CT exam to meet ALARA standards for radiation dose reduction. INDICATION: 82-year-old male, confusion, hallucinations, right-sided head pain. CORRELATION STUDY: CT head of 05/31/2021. FINDINGS: CT HEAD: Left-sided craniotomy is present. There are generalized atrophic changes with prominence of the ventricles and sulci. Scattered areas of decreased attenuation, likely owing to chronic small vessel ischemic disease. There is no appreciable midline shift or mass effect. Likely chronic ischemic change involving left cerebellum. No intracranial hemorrhage. Intracranial vascular calcification without asymmetric hyperdense intracranial vascular sign. Paranasal sinuses and mastoid air cells are clear. CT CERVICAL SPINE: Cervical spine alignment is anatomic. There is no acute fracture or traumatic subluxation. Odontoid is intact. Posterior elements are intact but demonstrate mild hypertrophic facet arthropathy. Various degrees of mild disc space narrowing, most noticeable at C4-C5, C5-C6, and C6-C7 levels. Minimal endplate osteophyte formation with minimal encroachment of the canal with mild areas of narrowing, right greater than left. Paraspinal soft tissues are unremarkable. Lung apices are clear. There is moderate calcification at the carotid bifurcations. IMPRESSION: CT HEAD: 1. Negative for acute traumatic intracranial abnormality. 2. Generalized atrophic and involutional changes present. CT CERVICAL SPINE: 1. Negative for acute fracture or traumatic subluxation. 2. Mild diffuse cervical spondylosis with various degrees of disc space narrowing and osteophyte formation at the endplates. Dictated by: Dictated on workstation # [id number]
[2022-10-12 14:46] LABS: BILIRUBIN,URINE NEGATIVE (NEGATIVE); CLARITY,URINE CLEAR; COLOR,URINE YELLOW; GLUCOSE, URINE (UA) NEGATIVE (NEGATIVE); KETONES,URINE NEGATIVE (NEGATIVE); LEUKOCYTE ESTERASE ,URINE NEGATIVE (NEGATIVE); NITRITE,URINE NEGATIVE (NEGATIVE); PROTEIN,URINE NEGATIVE (NEGATIVE)
[2022-10-12 14:52] LABS: BACTERIA,URINE NEGATIVE /HPF
[2022-10-12 15:02] LABS: AMPHETAMINE SCREEN, URINE NEGATIVE (NEGATIVE); BARBITURATE SCREEN URINE NEGATIVE (NEGATIVE); BENZODIAZEPINES SCREEN URINE NEGATIVE (NEGATIVE); CANNABINOID SCREEN, URINE NEGATIVE (NEGATIVE); COCAINE SCREEN URINE NEGATIVE (NEGATIVE); METHADONE STAT NEGATIVE (NEGATIVE); OPIATE SCREEN URINE NEGATIVE (NEGATIVE); OXYCODONE STAT NEGATIVE (NEGATIVE); PROPOXYPHENE STAT NEGATIVE (NEGATIVE); TRICYCLIC ANTIDEPRESSANTS SCRE NEGATIVE (NEGATIVE)
[2022-10-12] MEDS ORDERED: QUET25TA PO (17:32)
[2022-10-12 17:42] VITALS: BP 160/93
== END 2022-10-12 17:43 | disposition home or self-care (01) ==
LOC: EDUNIT# 12:11 → ER 12:13
DX: R44.1 Visual hallucinations (principal); R44.0 Auditory hallucinations; R41.0 Disorientation, unspecified; Z86.59 Personal history of other mental and behavioral disorders
CPT/HCPCS: 36415; 70450; 71045; 72125; 80053; 80306; 80320; 81000; 83690; 84484; 85025; 85610; 85730

== ENCOUNTER 2023-01-04 07:21 | Emergency (ER) | payer MEDICARE ==
[~2023-01-04] VITALS: Ht 182 cm; Wt 41.0 kg
[~2023-01-04 07:21] MED LIST changes: +FAMO-356 PO; -FAMO20TA3 PO
[2023-01-04] MEDS ORDERED: NS IV 500 ML 500 ML IV STA (07:44)
--- NOTE | 2023-01-04 07:44 | ED Fall/Injury ---
General Chief Complaint: Trauma-Non Activation Stated Complaint: FALL Source: EMS Exam Limitations: clinical condition (dementia/TONAWANDA) History of Present Illness Date Seen by Provider: Jan 04, 2023 Time Seen by Provider: 07:25 Initial Comments Patient is an 82-year-old male with a history of dementia presents to the emergency department by EMS after being found by his son outside in the cold, 35 degree weather. He was possibly out for about an hour to an hour and a half. He had been incontinent of stool in his pants. He is unable to provide any HPI, review of systems due to his dementia. He is noted to have an abrasion at the occiput. No active bleeding. He is moving all 4 extremities. He does answer questions although it is confused speech. Noted to have very large protuberant lower abdomen suspicious for acute urinary retention. No deformities noted to his extremities. No large wounds other than an abrasion to the right elbow. No signs stable, temp is 95 degrees (tympanic). History per son - independent historian - patient is still riding his bicycle periodically and did go for a ride . Son states he started acting more confused that evening and was even worse all day yesterday - talking to people long and gone. Son states that he has not really slept in 36 hours. He did give him a dose of seroquel last night before bed but it obviously did not help. No complaints of illness recently. Occurred: this morning Injuries/Pain Location: head, upper extremity (right elbow) Context: unknown Loss of Consciousness: unsure Associated Symptoms (Fall): Denies Symptoms Allergies and Home Medications Allergies Coded Allergies: Xompnaa-PUK-VaB Reductase Inhibitor (Verified Allergy, Mild, ELEVATED LIVER ENZYMES, 08/06/17) gemfibrozil (Verified Allergy, Mild, NAUSEA, 08/06/17) codeine (Verified Allergy, Unknown, 08/06/17) Patient Home Medication List Home Medication List Reviewed: Yes Aspirin (Aspirin) 81 Mg Tab.chew, 81 MG PO Q48H, (Reported) Entered as Reported by: KAMILLE PLATT on 05/31/16 0835 Famotidine (Acid Slinger Sequins (FAMOTIDINE)) 20 Mg Tablet, 20 MG PO DAILY, (Reported) Entered as Reported by: CHAY ALMODOVAR on 08/06/17 0916 Ferrous Sulfate (Ferrous Sulfate) 325 Mg Tablet, 325 MG PO DAILY, (Reported) Entered as Reported by: CHAY ALMODOVAR on 08/06/17 0916 Levetiracetam (Levetiracetam) 500 Mg Tablet, 500 MG PO DAILY, (Reported) Entered as Reported by: CHAY ALMODOVAR on 08/06/17 0916 Lisinopril (Lisinopril) 10 Mg Tablet, 5 MG PO DAILY, (Reported) Entered as Reported by: KAMILLE PLATT on 06/05/15 1035 Quetiapine Fumarate (Seroquel) 25 Mg Tablet, 25 MG PO HS Prescribed by: ROD HURST on 04/11/18 1413 Quetiapine Fumarate (Seroquel) 25 Mg Tablet, 25 MG PO HS Prescribed by: ALBERTA HARKINS on 10/12/22 1732 Quetiapine Fumarate (Seroquel) 25 Mg Tablet, 25 MG PO HS Prescribed by: RACHEL WEN on 01/04/23 0928 Review of Systems Review of Systems Constitutional: see HPI unable to obtain from patient due to dementia Past Ispmxai-Fttpxc-Evqjdy Hx Immunizations Up To Date Tetanus Booster (TDap): Unknown Seasonal Allergies Seasonal Allergies: No Past Medical History Surgery/Hospitalization HX: EARLY STAGE DEMENTIA Surgeries: Yes (SEE BELOW) Abdominal, Bowel Surgery, Cardiac, Coronary Stent, Neurological Respiratory: No Currently Using CPAP: No Currently Using BIPAP: No Cardiac: Yes (2 STENTS) Coronary Artery Disease, Heart Attack, Hypertension Neurological: Yes (SPONTANEOUS SUBDURAL HEMATOMA WHILE ON ANTICOAGULANTS 2008- S/P SURGERY) Seizure Disorder, Stroke, TIA Reproductive Disorders: No Sexually Transmitted Disease: No HIV/AIDS: No Genitourinary: No Gastrointestinal: Yes (RIGHT INGUINAL HERNIA AND BOWEL OBSTRUCTION 07/2017) Abdominal Hernia, Gastroesophageal Reflux, Obstructive Bowel, Chronic Constipation Musculoskeletal: No Endocrine: No HEENT: Yes Loss of Vision: Denies Hearing Impairment: Hard of Hearing Cancer: No Psychosocial: Yes (AUDITORY HALLUCINATIONS) Integumentary: No Blood Disorders: No Adverse Reaction/Blood Tranf: No Family Medical History Unknown family medical history No Pertinent Family Hx, Hypertension SOCIAL HISTORY: -ETOH--NONE -DRUGS--NONE -SMOKING--NEVER PAST SURGICAL HISTORY: -CARDIAC CATHS--STENTS X 2 IN 2004 -EVACUATION OF SUBDURAL HEMATOMA 2009 -RIGHT INGUINAL HERNIA REPAIR AND SURGERY FOR BOWEL OBSTRUCTION 08/07/17 Physical Exam Vital Signs Vital Signs - First Documented 01/04/23 01/04/23 07:25 10:02 Temp 35.0 Pulse 97 Resp 20 B/P (MAP) 164/84 (110) Pulse Ox 99 Capillary Refill : Height, Weight, BMI Height: 6'0.00" Weight: 119lbs. 0.0oz. [id number]; 16.00 BMI Method:Stated General Appearance: no apparent distress, cachetic HEENT: PERRL/EOMI, other (bilateral TM's clear (after bilateral cerumen impaction removed) no hemotympanum; no purdy's sign) Neck: non-tender, full range of motion Cardiovascular: regular rate, rhythm Respiratory: lungs clear, normal breath sounds, no respiratory distress, no accessory muscle use Gastrointestinal: normal bowel sounds, other (lower abdomen distended and firm; upper - soft and non tender) Back: normal inspection Extremities: normal range of motion, normal inspection, no pedal edema Neurologic/Psychiatric: no motor/sensory deficits, alert, normal mood/affect Skin: normal color, warm/dry, other (superficial abrasions to right elbow and left flank as well as occiput) [place] Coma Score Best Eye Response: (4) Open Spontaneously Best Verbal Response: (4) Confused Conversation Best Motor Response: (6) Obeys Commands [place] Total: 14 Progress/Results/Core Measures Results/Orders Lab Results Laboratory Tests Test 01/04/23 07:40 01/04/23 07:50 Range/Units White Blood Count 15.2 H 4.3-11.0 10^3/uL Red Blood Count 3.38 L 4.30-5.52 10^6/uL Hemoglobin 12.8 L 13.3-17.7 g/dL Hematocrit 38 L 40-54 % Mean Corpuscular Volume 114 H 80-99 fL Mean Corpuscular Hemoglobin 38 H 25-34 pg Mean Corpuscular Hemoglobin Concent 33 32-36 g/dL Red Cell Distribution Width 14.5 10.0-14.5 % Platelet Count 278 130-400 10^3/uL Mean Platelet Volume 9.4 9.0-12.2 fL Immature Granulocyte % (Auto) 1 % Neutrophils (%) (Auto) 89 H 42-75 % Lymphocytes (%) (Auto) 5 L 12-44 % Monocytes (%) (Auto) 6 0-12 % Eosinophils (%) (Auto) 0 0-10 % Basophils (%) (Auto) 0 0-10 % Neutrophils # (Auto) 13.5 H 1.8-7.8 10^3/uL Lymphocytes # (Auto) 0.7 L 1.0-4.0 10^3/uL Monocytes # (Auto) 0.9 0.0-1.0 10^3/uL Eosinophils # (Auto) 0.0 0.0-0.3 10^3/uL Basophils # (Auto) 0.0 0.0-0.1 10^3/uL Immature Granulocyte # (Auto) 0.1 0.0-0.1 10^3/uL Neutrophils % (Manual) 87 % Lymphocytes % (Manual) 8 % Monocytes % (Manual) 5 % Eosinophils % (Manual) 0 % Basophils % (Manual) 0 % Band Neutrophils 0 % Blood Morphology Comment NORMAL Sodium Level 144 135-145 MMOL/L Potassium Level 4.1 3.6-5.0 MMOL/L Chloride Level 105 98-107 MMOL/L Carbon Dioxide Level 22 21-32 MMOL/L Anion Gap 17 H 5-14 MMOL/L Blood Urea Nitrogen 17 7-18 MG/DL Creatinine 0.90 0.60-1.30 MG/DL Estimat Glomerular Filtration Rate 86 BUN/Creatinine Ratio 19 Glucose Level 69 L 70-105 MG/DL Calcium Level 9.4 8.5-10.1 MG/DL Urine Color YELLOW Urine Clarity CLEAR Urine pH 6.0 5-9 Urine Specific [place] 1.010 L 1.016-1.022 Urine Protein 1+ H NEGATIVE Urine Glucose (UA) NEGATIVE NEGATIVE Urine Ketones NEGATIVE NEGATIVE Urine Nitrite NEGATIVE NEGATIVE Urine Bilirubin NEGATIVE NEGATIVE Urine Urobilinogen 0.2 < = 1.0 MG/DL Urine Leukocyte Esterase NEGATIVE NEGATIVE Urine RBC (Auto) 1+ H NEGATIVE Urine RBC 2-5 H /HPF Urine WBC 0-2 /HPF Urine Crystals NONE /LPF Urine Bacteria NEGATIVE /HPF Urine Casts NONE /LPF Urine Mucus NEGATIVE /LPF Urine Culture Indicated NO My Orders Orders - RACHEL WEN MD Ed Iv/Invasive Line Start (01/04/23 07:44) Cbc And Automated Diff (01/04/23 07:44) Basic Metabolic Panel (01/04/23 07:44) Ua Culture If Indicated (01/04/23 07:44) Ct Head Wo (01/04/23 07:44) Ns Iv 500 Ml (Ns Iv 500 Ml) (01/04/23 07:44) Manual Differential (01/04/23 07:40) Vital Signs/I&O 01/04/23 01/04/23 07:25 10:02 Temp 35.0 Pulse 97 91 Resp 20 20 B/P (MAP) 164/84 (110) 132/72 Pulse Ox 99 Progress Progress Note : Time: 08:44 Progress Note Patient seen and evaluated by me. Evaluation today includes physical exam, CBC, basic metabolic panel, urinalysis and CT head without contrast. Pertinent physical exam findings include elderly male, quite thin/cachectic in no acute distress. He is pleasantly demented. He is unable to answer questions accurately, has confused/disoriented speech. HEENT exam pertinent for small abrasion at the occiput. He has bilateral cerumen impactions which are removed to reveal normal tympanic membranes. No purdy sign, no raccoon eyes. No midline tenderness of the cervical spine. He has abrasions to the right elbow. He is moving all extremities equally. Has quite protuberant/distended lower abdomen consistent with likely acute urinary retention/bladder distention. Small abrasion noted to the left flank. Differential diagnosis includes acute urinary retention, urinary tract infection resulting in confusion worsening dementia. Closed head injury/subdural hematoma. Electrolyte imbalance. Generalized weakness due to frailty/dementia. Patient's labs independently reviewed and interpreted by me. His CBC shows a leukocytosis of 15.2 with normal hemoglobin and hematocrit of 12.8 and 38. His platelet count is 278. His basic metabolic panel is normal. His urine shows trace microscopic hematuria without signs of infection. CT head without contrast read by the radiologist as negative for any acute intracranial abnormality. We did place a Muniz catheter with resultant 2 L of urine output. Patient's vital signs remained stable. He was able to sleep in the department. No concerning findings for urinary tract infection. He is satting well, I do not hear anything that concerns me for pneumonia. He has not vomited. His abdomen is now soft and nondistended. I had a discussion with the patient's son at the bedside regarding possibly considering prison placement. Recommended some sort of mechanism to alert when he is leaving the house such as a cosme on the doors. I will rewrite him for Seroquel 25 mg which she has been given before with some success for getting sleep and improving his dementia symptoms. Son is agreeable to the plan of care will follow-up with his primary care physician on Friday. All questions are sought and answered. Diagnostic Imaging Diagonstic Imaging: CT Comments [facility], [place] NAME: JUAN ALCARAZ [facility] REC#: [id number] PT STATUS: REG ER : 1940 PHYSICIAN: RACHEL WEN MD ADMIT DATE: 01/04/23/ER Draft Date of Exam:01/04/23 CT HEAD WO PROCEDURE: CT head without contrast. TECHNIQUE: Multiple contiguous axial images were obtained through the brain without the use of intravenous contrast. Auto Exposure Controls were utilized during the CT exam to meet ALARA standards for radiation dose reduction. INDICATION: 82-year-old male, status post fall outside. Occipital abrasion, history of dementia and craniotomy. CORRELATION STUDY: CT head 10/12/2022 FINDINGS: Prior left-sided craniotomy present. There is generalized atrophic changes with prominence of ventricles and sulci. May be slightly greater involving left hemisphere compared to right. Scattered areas decreased attenuation likely chronic small vessel ischemic disease. Likely chronic asymmetric ischemic change left cerebellum. No definitive evidence for edema. No intracranial hemorrhage. No appreciable midline shift or mass effect. Intracranial vascular calcification without asymmetric hyperdense intracranial vascular sign. Apart from the craniotomy, bony calvarium is intact. Paranasal sinuses are generally clear. IMPRESSION: 1. Negative for acute traumatic abnormality of the head. Dictated on workstation # [id number] Dict: 01/04/23816 Trans: 01/04/23828 MISAEL [phone] Interpreted by: JOLIE MEANS DO Electronically signed by: Departure Impression Primary Impression: Fall Qualified Codes: W19.XXXA - Unspecified fall, initial encounter Additional Impressions: Abrasions of multiple sites Dementia Qualified Codes: F03.B18 - Unspecified dementia, moderate, with other behavioral disturbance Acute urinary retention Disposition: 01 HOME, SELF-CARE Condition: Stable Departure-Patient Inst. Decision time for Depature: 09:27 Referrals: JAVIER GONZALEZ MD (PCP/Family) Primary Care Physician Patient Instructions: Dementia (DC), Preventing Falls ED Add. Discharge Instructions: Give the seroquel 25mg 1/2h to 1h before bed. You may consider putting a cosme on his bedroom door, the front and back doors of the house to alert you when he may be trying to leave. Encourage fluids/ frequent snacks. Please call Dr Gonzalez's office Friday morning for a follow up appointment early next week. It may be time to consider a Residential/Dementia Unit placement. Please return to the Emergency Department for any new, emergent or concerning symptoms. Scripts Quetiapine Fumarate (Seroquel) 25 Mg Tablet 25 MG PO HS for 7 Days, #10 TAB Prov: RACHEL WEN MD 01/04/23 Copy Copies To 1: JAIVER GONZALEZ MD, KATHRYN M MD Jan 04, 2023 07:44
[2023-01-04 07:55] LABS: BASOPHILS % (AUTO) 0 % (0-10); EOSINOPHILS % (AUTO) 0 % (0-10); HEMATOCRIT 38 % (40-54); HEMOGLOBIN 12.8 g/dL (13.3-17.7); LYMPHOCYTES # (AUTO) 0.7 10^3/uL (1.0-4.0); LYMPHOCYTES % (AUTO) 5 % (12-44); MEAN CORPUSCULAR HEMOGLOBIN 38 pg (25-34); MEAN CORPUSCULAR HGB CONC 33 g/dL (32-36); MEAN CORPUSCULAR VOLUME 114 fL (80-99); MEAN PLATELET VOLUME 9.4 fL (9.0-12.2); MONOCYTES # (AUTO) 0.9 10^3/uL (0.0-1.0); MONOCYTES % (AUTO) 6 % (0-12); NEUTROPHILS # (AUTO) 13.5 10^3/uL (1.8-7.8); NEUTROPHILS % (AUTO) 89 % (42-75); PLATELET COUNT 278 10^3/uL (130-400); WHITE BLOOD COUNT 15.2 10^3/uL (4.3-11.0)
[2023-01-04 08:06] LABS: POTASSIUM 4.1 MMOL/L (3.6-5.0)
[2023-01-04 08:07] LABS: CALCIUM 9.4 MG/DL (8.5-10.1)
[2023-01-04 08:11] LABS: CREATININE SERUM 0.9 MG/DL (0.60-1.30)
[2023-01-04 08:17] LABS: BILIRUBIN,URINE NEGATIVE (NEGATIVE); CLARITY,URINE CLEAR; COLOR,URINE YELLOW; GLUCOSE, URINE (UA) NEGATIVE (NEGATIVE); KETONES,URINE NEGATIVE (NEGATIVE); LEUKOCYTE ESTERASE ,URINE NEGATIVE (NEGATIVE); NITRITE,URINE NEGATIVE (NEGATIVE); PROTEIN,URINE 1+ (NEGATIVE)
[2023-01-04 08:18] LABS: BACTERIA,URINE NEGATIVE /HPF; WBC,URINE 0-2 /HPF
[2023-01-04 08:26] LABS: BAND NEUTROPHILS 0 %; BASOPHILS % (MANUAL) 0 %; EOSINOPHILS % (MANUAL) 0 %; LYMPHOCYTES % (MANUAL) 8 %; MONOCYTES % (MANUAL) 5 %; NEUTROPHILS % (MANUAL) 87 %; RBC MORPH NORMAL
--- NOTE | 2023-01-04 08:29 | Diagnostic Imaging Report ---
PROCEDURE: CT head without contrast. TECHNIQUE: Multiple contiguous axial images were obtained through the brain without the use of intravenous contrast. Auto Exposure Controls were utilized during the CT exam to meet ALARA standards for radiation dose reduction. INDICATION: 82-year-old male, status post fall outside. Occipital abrasion, history of dementia and craniotomy. CORRELATION STUDY: CT head 10/12/2022 FINDINGS: Prior left-sided craniotomy present. There is generalized atrophic changes with prominence of ventricles and sulci. May be slightly greater involving left hemisphere compared to right. Scattered areas decreased attenuation likely chronic small vessel ischemic disease. Likely chronic asymmetric ischemic change left cerebellum. No definitive evidence for edema. No intracranial hemorrhage. No appreciable midline shift or mass effect. Intracranial vascular calcification without asymmetric hyperdense intracranial vascular sign. Apart from the craniotomy, bony calvarium is intact. Paranasal sinuses are generally clear. IMPRESSION: 1. Negative for acute traumatic abnormality of the head. Dictated by: Dictated on workstation # [id number]
[2023-01-04] MEDS ORDERED: QUET25TA PO (09:28)
[2023-01-04 10:02] VITALS: BP 132/72
== END 2023-01-04 10:11 | disposition home or self-care (01) ==
LOC: EDUNIT# 07:21 → ER 07:22
DX: S00.01XA Abrasion of scalp, initial encounter (principal); S50.311A Abrasion of right elbow, initial encounter; S30.811A Abrasion of abdominal wall, initial encounter; F03.90 Unspecified dementia, unspecified severity, without behavioral disturbance, psychotic disturbance, mood disturbance, and anxiety; R33.9 Retention of urine, unspecified; W19.XXXA Unspecified fall, initial encounter
CPT/HCPCS: 36415; 51702; 70450; 80048; 81000; 85007; 85027